=== PATIENT | male | born 1960 | race Caucasian/White ===

== ENCOUNTER 2017-07-02 09:21 | Inpatient (IN) ==
[2017-07-02] MEDS ORDERED: Ondansetron 4 MG/2 ML VIAL IVP PRN (11:13)
[2017-07-02] MEDS ORDERED: *HR* HYDROcodone/Acet 5/325 mg TABLET PO PRN (11:13)
[2017-07-02] MEDS ORDERED: Polyethylene Glycol 3350 255 GM POWDER PO ONE (11:13)
[2017-07-02] MEDS ORDERED: *HR* Promethazine 25 MG/ML VIAL IVP PRN (11:13)
[2017-07-02] MEDS ORDERED: *HR* Morphine 2 MG/ML SYRINGE IVP PRN ×3 (11:13)
[2017-07-02] MEDS ORDERED: *HR* Metoprolol 5 MG/5 ML VIAL IVP PRN (11:13)
[2017-07-02] MEDS ORDERED: 0.9 % Sodium Chloride 1,000 ML IVC SCH ×2 (11:15→14:15)
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
[2017-07-02] MEDS: Pantoprazole 40 MG VIAL IVP SCH (12:07)
[2017-07-02 12:16] LABS: Basophils # 0.1 K/mcL (0.0-0.2); Basophils % 0.9 %; Eosinophils # 0.2 K/mcL (0.0-0.6); Eosinophils % 3.2 %; Hematocrit 33.2 % (37.5-50.1); Hemoglobin 11.8 g/dL (12.9-16.9); Immature Granulocytes % 0.3 % (0-4); Immature Platelets 2.6 % (1.1-6.1); Lymphocytes # 2.9 K/mcL (0.6-4.6); Lymphocytes % 38.8 %; Mean Corpuscular HGB Conc 35.5 g/dL (31.6-35.5); Mean Corpuscular Hemoglobin 30.5 pg (28.0-33.3); Mean Corpuscular Volume 85.8 fL (83.0-100.0); Mean Platelet Volume 9.8 fL (9.4-12.4); Monocytes # 0.8 K/mcL (0.0-1.3); Monocytes % 10.3 %; Neutrophils # 3.5 K/mcL (1.6-8.9); Platelet Count 626 K/mcL (140-400); Red Blood Count 3.87 M/mcL (4.19-5.50); Red Cell Distribution Width 13.8 % (11.5-14.5); Segmented Neutrophils % 46.5 %
[2017-07-02 12:20] LABS: INR 1.2; Prothrombin Time 12.5 Seconds (9.4-12.1)
[2017-07-02 12:32] LABS: Alanine Aminotransferase 13 Units/L (7-52); Albumin 3.7 g/dL (3.5-5.7); Albumin/Globulin Ratio 1.4 (1.1-2.2); Alkaline Phosphatase 29 Units/L (34-104); Aspartate Amino Transferase 12 Units/L (13-39); BUN/Creatinine Ratio 23 (6-26); Bilirubin,Direct 0.1 mg/dL (0.0-0.2); Bilirubin,Indirect 0.3 mg/dL (0.0-1.2); Bilirubin,Total 0.4 mg/dL (0.3-1.0); Blood Urea Nitrogen 23 mg/dL (6-20); Calcium 9.2 mg/dL (8.6-10.3); Carbon Dioxide 22 mEq/L (23-29); Chloride 108 mEq/L (98-107); Globulin 2.7 g/dL (2.4-3.5); Glucose 143 mg/dL (70-105); Osmolality,Calculated 290 (280-300); Potassium 4.3 mEq/L (3.5-5.1); Sodium 137 mEq/L (136-145); Total Protein 6.4 g/dL (6.4-8.9); eGFR For African Americans > 60 (> 60); eGFR For Non-African Americans > 60 (> 60)
[2017-07-02] MEDS: carBAMazepine 200 MG TABLET PO SCH ×2 (16:00→23:23)
[2017-07-02] MEDS: Ipratropium/Albuterol Neb 3 ML IH SCH ×3 (16:57→23:12)
[2017-07-02] MEDS: *HR* Heparin 5,000 UNIT/ML VIAL SQ SCH (18:00)
[2017-07-02] MEDS ORDERED: Fenofibrate 54 MG TABLET PO SCH (21:00)
[2017-07-02] MEDS: Ringers Solution, Lactated 1,000 ML IVC SCH (23:23)
[2017-07-03] MEDS: Ipratropium/Albuterol Neb 3 ML IH SCH ×5 (03:34→23:57)
[2017-07-03 05:00] LABS: Basophils # 0.1 K/mcL (0.0-0.2); Basophils % 1.2 %; Eosinophils # 0.4 K/mcL (0.0-0.6); Eosinophils % 6.7 %; Hemoglobin 11.1 g/dL (12.9-16.9); Immature Granulocytes % 0.7 % (0-4); Lymphocytes # 2.2 K/mcL (0.6-4.6); Lymphocytes % 38.2 %; Mean Corpuscular HGB Conc 34.7 g/dL (31.6-35.5); Mean Corpuscular Hemoglobin 30.4 pg (28.0-33.3); Mean Corpuscular Volume 87.7 fL (83.0-100.0); Mean Platelet Volume 9.5 fL (9.4-12.4); Monocytes # 0.8 K/mcL (0.0-1.3); Monocytes % 14.5 %; Neutrophils # 2.3 K/mcL (1.6-8.9); Platelet Count 567 K/mcL (140-400); Red Blood Count 3.65 M/mcL (4.19-5.50); Red Cell Distribution Width 13.9 % (11.5-14.5); Segmented Neutrophils % 38.7 %
[2017-07-03 05:04] LABS: INR 1.1; Prothrombin Time 12.1 Seconds (9.4-12.1)
[2017-07-03 05:14] LABS: BUN/Creatinine Ratio 18 (6-26); Blood Urea Nitrogen 15 mg/dL (6-20); Calcium 8.8 mg/dL (8.6-10.3); Carbon Dioxide 24 mEq/L (23-29); Chloride 109 mEq/L (98-107); Glucose 129 mg/dL (70-105); Magnesium 1.9 mg/dL (1.6-2.6); Osmolality,Calculated 289 (280-300); Phosphorous 3.5 mg/dL (2.7-4.5); Sodium 138 mEq/L (136-145); eGFR For African Americans > 60 (> 60); eGFR For Non-African Americans > 60 (> 60)
[2017-07-03] MEDS: *HR* Heparin 5,000 UNIT/ML VIAL SQ SCH (05:32)
[2017-07-03] MEDS ORDERED: cefOXitin 2,000 MG in D5% in Water (Mini-Bag+) 100 ML IVPB ONE (07:32)
[2017-07-03] MEDS ORDERED: cefOXitin 2,000 MG in Water for inj. (sterile) 10 ML IVP ONE (07:37)
[2017-07-03] MEDS ORDERED: ceFAZolin 1,000 MG, Sodium Chloride IRRigation 1,000 ML IR ONE (08:00)
[2017-07-03] MEDS: carBAMazepine 200 MG TABLET PO SCH ×2 (08:26→16:19)
[2017-07-03] MEDS: Pantoprazole 40 MG VIAL IVP SCH (08:37)
[2017-07-03] MEDS: Ringers Solution, Lactated 1,000 ML IVC SCH (08:38)
--- NOTE | 2017-07-03 08:52 | Electrocardiograph Report ---
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
[2017-07-03] MEDS ORDERED: (Roflumilast [Daliresp] 500 MCG) PO SCH (09:00)
--- NOTE | 2017-07-03 12:56 | Anesthesia Evaluation PreOp ---
<Abdulaziz Goodman - Last Filed: 07/03/17 12:53> Date of Encounter: 07/03/17 - Past History Planned Operation: open cholecystectomy Cardiac History: HTN, Hyperlipidemia Pulmonary History: Former smoker (quit 1985), COPD, ERMELINDA Dx, Other (chronic resp failure on home )2) GARMENT LOOPER History: Other (post tramatic brain injury) Other Medical History: Diabetes Type II, Thyroid (hypo), Other (chronic pancreatitis) Anesthesia History: No Prior Anesthetic Complications, Past Anesthesia ( splenectomy, partial thyroidectomy, multiple orthopedic sx) Alcohol Use: occasionally Drug use: none Medications and Allergies Cyclobenzaprine [Flexeril] 10 mg PO TID 01/28/15 [History] Fenofibrate 160 mg PO HS 01/28/15 [History] Levothyroxine Sodium [Synthroid] 75 mcg PO QAM 01/28/15 [History] Lisinopril [Zestril] 2.5 mg PO QAM 01/28/15 [History] Naproxen [Naprosyn] 500 mg PO BID 01/28/15 [History] Terazosin [Hytrin] 4 mg PO HS 01/28/15 [History] Testosterone Cypionate [Depo-Testosterone] 0.25 ml IM TH 01/28/15 [History] TraMADol [Ultram] 50 mg PO Q6HR PRN 01/28/15 [History] Albuterol Sulfate [Albuterol Inhaler] 2 puff IH Q4HR PRN 01/17/16 [History] Cholecalciferol (D-3) [Vitamin D] 2,000 unit PO DAILY 01/17/16 [History] Fish Oil/Dha/Epa [Fish Oil 1,200 mg Fish Oil] 1 each PO DAILY 01/17/16 [History] Fluticasone Propionate Nasal [Flonase] 1 spr NS DAILY 01/17/16 [History] Montelukast [Singulair] 10 mg PO HS 01/17/16 [History] Multivitamin [Multi-Day Vitamins] 1 each PO DAILY 01/17/16 [History] Omeprazole [PriLOSEC] 20 mg PO DAILY 01/17/16 [History] Tadalafil [Cialis] 20 mg PO AD PRN 01/17/16 [History] Umeclidinium Brm/Vilanterol Tr [Anoro Ellipta 62.5-25 Mcg INH] 1 puff IH DAILY 01/17/16 [History] Vitamin B Complex [B Complex] 1 each PO DAILY 01/17/16 [History] Diclofenac Sodium [Voltaren] 1 appl TP QID 07/02/17 [History] Roflumilast [Daliresp] 500 mcg PO DAILY 07/02/17 [History] carBAMazepine [Tegretol] 200 mg PO Q8HR 07/02/17 [History] 3 Allergy/AdvReac Type Severity Reaction Status Date / Time phenytoin [From Dilantin] Allergy Hives Verified 07/02/17 11:21 Sulfa (Sulfonamide Allergy Hives Verified 07/02/17 11:21 Antibiotics) - Meds/Allergy Pre-op Review Medications Reviewed: Yes Allergies Reviewed: Yes Beta Blockers on Current Med List: No Anesthesia Results - Labs 07/03/17 04:43 07/03/17 04:43 - Imaging EKG: report reviewed (SINUS RHYTHM) Anesthesia Exam Selected Entries 07/03/17 11:00 Temperature 97.6 F Pulse Rate 108 Respiratory Rate 16 Blood Pressure 148/85 O2 Sat by Pulse Oximetry 94 Oxygen Flow Rate (LPM) 2 Weight: 92kg - GARMENT LOOPER LOC: Oriented GARMENT LOOPER Motor: Normal RUE, Normal LUE, Normal RLE, Normal LLE, Normal Face GARMENT LOOPER Sensory: Normal: RUE, LUE, RLE, LLE, Face - Cardiac Rhythm: Regular Murmur: None - Pulmonary Breath Sounds: bilateral Clear Respiratory Effort: Symmetrical <Will Leahy - Last Filed: 07/03/17 14:10> Date of Encounter: 07/03/17 Time of Encounter: 14:10 Anesthesia Results - Labs 07/03/17 04:43 07/03/17 04:43 Anesthesia Exam Height: 6'0 Weight: 92kg 202 lbs NPO (# of Hours): MN Pain Scale: 0 - HEENT Pupil (Motor): Pupils equal, EOMI Mallampati: II Teeth: Normal Oral Opening: Greater than 3 - GARMENT LOOPER LOC: Oriented GARMENT LOOPER Motor: Normal RUE, Normal LUE, Normal RLE, Normal LLE, Normal Face GARMENT LOOPER Sensory: Normal: RUE, LUE, RLE, LLE, Face - Cardiac Rhythm: Regular Murmur: None JVD: No Carotid Bruit: No - Pulmonary Breath Sounds: bilateral Clear Respiratory Effort: Symmetrical Anesthesia Assess/Plan ASA Score: 3 Modified Daniele Scale for Level of Consciousness: Cooperative, oriented, and tranquil Anesthetic Plan: General Monitoring Plan: Standard Monitors Recovery Plan: PACU (Discussed GA, agrees to proceed)
[2017-07-03] MEDS ORDERED: Albuterol 2.5 MG/3 ML NEBULIZER IH ONE (14:12)
[2017-07-03] MEDS ORDERED: Albuterol 2.5 MG/3 ML NEBULIZER ONE (14:15)
[2017-07-03] MEDS ORDERED: cefOXitin 1,000 MG, Sodium Chloride IRRigation 1,000 ML IR ONE (16:00)
[2017-07-03] MEDS ORDERED: cefOXitin 2,000 MG in Water for inj. (sterile) 20 ML 10 ML IVP ONE (16:14)
[2017-07-03] MEDS ORDERED: *HR* Morphine 2 MG/ML SYRINGE IVP PRN (16:17)
[2017-07-03] MEDS ORDERED: *HR* Labetalol 20 MG/4 ML SYRINGE IVP PRN (16:17)
[2017-07-03] MEDS ORDERED: Ondansetron 4 MG/2 ML VIAL IVP ONE (16:17)
[2017-07-03] MEDS ORDERED: *HR* Promethazine 25 MG/ML VIAL IVP PRN (16:17)
[2017-07-03] MEDS ORDERED: CefOXitin 1,000 MG VIAL ONE (17:27)
--- NOTE | 2017-07-03 18:23 | Operative Note ---
Date of procedure: 07/03/17 Pre-op diagnosis: #1 acute cholecystitis #2 gallbladder to colon fistula Post-op diagnosis: same Procedure: #1 open cholecystectomy and cholangiogram +30% for gallbladder necrosis and severe inflammation. #2 right hemicolectomy Anesthesia: HARDEEP Surgeon: Haris Brunner Was there an sound assistant present: No Estimated blood loss (cc): 400 Specimen: #1 gallbladder (in fragments) #2 right colon demonstrating fistula Condition: stable Disposition: PACU Procedure in Detail: After informed consent the patient was taken to the major operative suite he is placed in the supine position and given adequate general endotracheal anesthesia. Nasogastric tube was placed. Garcia catheter tube was placed. The abdomen was prepped and draped in sterile fashion utilizing ChloraPrep standard draping techniques. Timeout was taken. The patient was identified. I entered the midline previous laparotomy incision. There were no anterior abdominal wall adhesions. The gallbladder was rock hard and completely encased by the transverse colon by acute inflammatory adhesions. A Bookwalter retractor was placed made a careful dissection around the inflammatory mass and encountered a subhepatic abscess. Full of Stool and bile. As it turns out, the anterior wall the gallbladder was completely necrotic and affixed to the transverse colon the infundibulum of the gallbladder was completely necrotic and affixed to the duodenum. A significant portion of the gallbladder was intrahepatic and also completely necrotic. I made a careful dissection of the neck of the gallbladder. I was able to identify the cystic duct. I obtained a cholangiogram. Cholangiogram demonstrated good flow into the duodenum and confirmed my placement and location as the cystic duct. The cystic duct was divided between surgical clips. The cystic artery was identified. This is controlled with surgical clips proximally and distally. The artery was divided. When I divided the artery proximal clips came off and I had to control the artery with a 4-0 Prolene stitch. The gallbladder was totally necrotic. I decided to remove the gallbladder completely. This was tremendously difficult in that 60-70% of the gallbladder was intrahepatic. I made a very careful dissection with electrocautery and blunt dissection followed by direct pressure on the hepatic fossa bed. The gallbladder was removed in multiple necrotic fragments. I placed a compression pack on the gallbladder fossa using the Bookwalter retractor. Total blood loss to this point was about 300 mL. I then turned my attention to the transverse colon. Using a right angle I explored the wall of the transverse colon and found the colon fistula. I divided the transverse colon just distal to this area of necrosis were the transverse colon was in good condition. DIDIER was used. Then mobilize the right colon. The distal ileum was adhesed into the pelvis. I lysed all of the adhesions to get adequate mobility on the ileum. I then transected the ileum about 10 cm proximal to the ileocecal valve. Right colon was then removed by dividing the mesentery with clamps and hemostatic ligatures. Once this was done I set up a dirty field and performed primary ileocolic anastomosis using DIDIER along the antimesenteric border. The resulting enterotomy was closed with a TA 60. I circumferentially reinforced the staple anastomosis with interrupted 3-0 silk seromuscular stitches. The remaining mesenteric opening was closed with multiple interrupted [id number] 2-0 silk stitches. This gave an excellent technical result. I irrigated with copious amounts of antibiotic containing solution. The liver was examined carefully. There was no bleeding from the hepatic fossa. Total blood loss was 400 mL. I placed #10 Russell-Banda drain in the right upper quadrant into the area of hepatic fossa and subhepatic abscess. I irrigated with copious amounts of antibiotic containing solution. The midline was closed with looped 0 PDS. The skin was closed with interrupted Vicryl and skin clips. He tolerated the procedure well.
[2017-07-03] MEDS: *HR* HYDROmorphone (PF) 1 MG/ML SYRINGE IVP PRN ×4 (18:32→22:17)
--- NOTE | 2017-07-03 19:06 | Anesthesia Evaluation Post Op ---
Date of Encounter: 07/03/17 Time of Encounter: 19:05 - Vital Signs Vital Signs: Vital Signs/O2 Sat, Most Current Temp Pulse Resp BP Pulse Ox 97.9 F 95 20 150/71 92 07/03/17 18:51 07/03/17 18:51 07/03/17 18:51 07/03/17 18:51 07/03/17 18:51 - Lungs Lungs: Clear Ascult./Percussion - Airway Airway: Non-obstructed - Cardiovascular Regular Rate - Mental Status Mental Status: Asleep with brisk response to light stimulation - Pain Pain Scale: 4 Pain Scale used: Numeric (1 - 10) - Nausea Vomiting Nausea Vomiting: Not Present - Hydration Hydration: NPO, Garcia catheter - Discharge PostOp Status: Transfer Patient to floor
[2017-07-03] MEDS ORDERED: Ondansetron 4 MG/2 ML VIAL IVP PRN (19:29)
[2017-07-03] MEDS ORDERED: *HR* Metoprolol 5 MG/5 ML VIAL IVP PRN (19:29)
[2017-07-03] MEDS ORDERED: *HR* FentaNYL (PF) 100 MCG/2 ML VIAL ONE (19:48)
[2017-07-03] MEDS ORDERED: *HR* Propofol 200 MG/20 ML VIAL IVP ONE (19:48)
[2017-07-03] MEDS ORDERED: *HR* Rocuronium Bromide 50 MG/5 ML VIAL ONE ×2 (19:48)
[2017-07-03] MEDS ORDERED: EPHEDrine 50 MG/ML VIAL ONE (19:48)
[2017-07-03] MEDS ORDERED: Ondansetron 4 MG/2 ML VIAL ONE (19:48)
[2017-07-03] MEDS ORDERED: Lidocaine -MPF 2% 2 ML VIAL ONE (19:48)
[2017-07-03] MEDS ORDERED: Dexamethasone 4 MG/ML VIAL ONE (19:48)
[2017-07-03] MEDS ORDERED: Neostigmine Methylsulfate 3 MG/3 ML SYRINGE ONE ×2 (19:48)
[2017-07-03] MEDS ORDERED: *HR* Succinylcholine 200 MG/10 ML VIAL IVP ONE (19:48)
[2017-07-03] MEDS ORDERED: *HR* HYDROmorphone 2 MG/ML SYRINGE ONE (19:48)
[2017-07-03] MEDS ORDERED: CefOXitin 2,000 MG VIAL ONE (19:48)
[2017-07-04] MEDS ORDERED: cefOXitin 2,000 MG in D5% in Water (Mini-Bag+) 100 ML IVPB SCH
[2017-07-04] MEDS: cefOXitin 1,000 MG in Water for inj. (sterile) 20 ML 10 ML IVP SCH ×2 (00:38→08:39)
[2017-07-04] MEDS: *HR* HYDROmorphone (PF) 1 MG/ML SYRINGE IVP PRN ×7 (00:38→10:23)
[2017-07-04] MEDS: Ringers Solution, Lactated 1,000 ML IVC SCH ×3 (03:50→18:56)
[2017-07-04] MEDS: Ipratropium/Albuterol Neb 3 ML IH SCH ×5 (04:03→20:33)
[2017-07-04 05:16] LABS: Basophils % 0.1 %; Mean Platelet Volume 9.5 fL (9.4-12.4)
[2017-07-04 05:18] LABS: Hematocrit 34.6 % (37.5-50.1); Immature Granulocytes % 0.6 % (0-4); Lymphocytes # 1.3 K/mcL (0.6-4.6); Lymphocytes % 4.8 %; Mean Corpuscular HGB Conc 34.7 g/dL (31.6-35.5); Mean Corpuscular Hemoglobin 30.5 pg (28.0-33.3); Mean Corpuscular Volume 87.8 fL (83.0-100.0); Monocytes # 1.3 K/mcL (0.0-1.3); Monocytes % 4.8 %; Neutrophils # 23.5 K/mcL (1.6-8.9); Platelet Count 548 K/mcL (140-400); Red Blood Count 3.94 M/mcL (4.19-5.50); Red Cell Distribution Width 13.7 % (11.5-14.5); Segmented Neutrophils % 89.7 %
[2017-07-04] MEDS: Pantoprazole 40 MG VIAL IVP SCH (05:18)
[2017-07-04] MEDS: *HR* Heparin 5,000 UNIT/ML VIAL SQ SCH ×2 (05:25→18:56)
[2017-07-04 05:30] LABS: INR 1.2; Prothrombin Time 13.4 Seconds (9.4-12.1)
[2017-07-04 05:41] LABS: Alanine Aminotransferase 63 Units/L (7-52); Albumin 3.5 g/dL (3.5-5.7); Albumin/Globulin Ratio 1.3 (1.1-2.2); Alkaline Phosphatase 28 Units/L (34-104); Aspartate Amino Transferase 87 Units/L (13-39); BUN/Creatinine Ratio 13 (6-26); Bilirubin,Direct 0.2 mg/dL (0.0-0.2); Bilirubin,Indirect 0.5 mg/dL (0.0-1.2); Bilirubin,Total 0.7 mg/dL (0.3-1.0); Blood Urea Nitrogen 10 mg/dL (6-20); Calcium 8.9 mg/dL (8.6-10.3); Carbon Dioxide 25 mEq/L (23-29); Chloride 105 mEq/L (98-107); Globulin 2.8 g/dL (2.4-3.5); Glucose 207 mg/dL (70-105); Magnesium 1.7 mg/dL (1.6-2.6); Osmolality,Calculated 289 (280-300); Phosphorous 4.3 mg/dL (2.7-4.5); Potassium 4.2 mEq/L (3.5-5.1); Sodium 137 mEq/L (136-145); Total Protein 6.3 g/dL (6.4-8.9); eGFR For African Americans > 60 (> 60); eGFR For Non-African Americans > 60 (> 60)
[2017-07-04 05:50] LABS: Platelet Estimate Increased (Normal)
[2017-07-04] MEDS ORDERED: *HR* HYDROmorphone 20 MG/20 ML PCA IVC PRN (10:49)
[2017-07-04] MEDS ORDERED: Naloxone 0.4 MG/ML INJ IVP PRN (10:49)
[2017-07-04] MEDS ORDERED: 0.9 % Sodium Chloride 1,000 ML IVC ONE (11:59)
[2017-07-04] MEDS ORDERED: Chloraseptic Spray 177 ML BOTTLE MM SCH (12:00)
[2017-07-04] MEDS: *HR* HYDROmorphone 20 MG/20 ML PCA IVC PRN (12:01)
--- NOTE | 2017-07-04 12:04 | General Surgery Progress Note ---
<Ryland Graves - Last Filed: 07/04/17 12:02> Date of Encounter: 07/04/17 Time of Encounter: 12:02 - Assessment and Plan (1) Acute cholecystitis due to biliary calculus Current Visit: Yes Status: Acute POD 1 - open cholecystectomy and r sayda colectomy w/ intraoperative cholangiogram 2/2 acute cholecystitis + fistula by Dr. Haris Brunner. Patient is in signficant amount of abdominal pain. hemodynamically stable, WBC 26.2 today. 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 PRN IV antihypertensives Qualifiers: Hypertension type: essential hypertension Qualified Code(s): I10 - Essential (primary) hypertension (4) Hypothyroid Current Visit: Yes Status: Chronic home synthroid PO, switched to IV synthroid while NPO. Qualifiers: Hypothyroidism type: unspecified Qualified Code(s): E03.9 - Hypothyroidism , unspecified (5) COPD (chronic obstructive pulmonary disease) Current Visit: Yes Status: Acute Scheduled duonebs Consult RT O2 per nasal cannula Qualifiers: COPD type: unspecified COPD Qualified Code(s): J44.9 - Chronic obstructive pulmonary disease, unspecified (6) Chronic respiratory failure with hypoxia, on home O2 therapy Current Visit: Yes Status: Acute He denies symptoms of angina, worsening sob, or cardiac history. See a/p above Subjective Patient reports: still having pain, no flatus, no bowel movement, afebrile Narrative: Patient is in significant amount of abdominal pain from surgery. 03/31 in severity Objective Vital Signs - Last 8 Hours Temp Pulse Resp BP Pulse Ox 07/04/17 07:49 98.1 F 105 16 119/77 94 07/04/17 04:03 97.9 F 106 18 138/93 97 Intake and Output 07/03/17 07/04/17 07/04/17 23:59 07:59 15:59 Intake Total 60 / 60 1070 / 1070 1000 / 1000 Output Total 460 / 460 1040 / 1040 650 / 650 Balance -400 / -400 30 / 30 350 / 350 Intake: IV Fluids 1010 / 1010 1000 / 1000 Lactated Ringers 1,000 ML @ 125 1000 / 1000 1000 / 1000 mls/hr IVC .Q8H [facility] Rx#: [id number] Mefoxin 1,000 MG In Water for inj. (sterile) 10 ML @ 150 mls/ hr IVP Q8HR [facility] Rx#:[id number] Oral 60 / 60 60 / 60 Output: Urine 0 / 0 0 / 0 Estimated Blood Loss 400 / 400 Catheter 0 / 0 950 / 950 650 / 650 Urethral (Garcia) 0 / 0 Wound Drainage 60 / 60 90 / 90 Right Upper Abdomen 40 / 40 90 / 90 Other: Weight 92.022 kg Blood Glucose* 230 187 Patient Weight 07/04/17 23:59 Weight 92.022 kg - General physical appearance well developed, well nourished, severe distress, severe pain - Eyes normal ocular movement - ENT normal mucosa, no hearing loss - Respiratory normal expansion, normal respiratory effort, clear to percussion, clear to auscultation - Cardiovascular Cardiovascular exam: Present: RRR - Abdomen Abdomen: Present: bowel sounds present, tender, guarding. Absent: rebound, rigid Abdominal Tenderness: diffusely - Incision Incision: Present: clean and dry, intact - Neurologic normal sensation - Psychiatric oriented to time, oriented to person, oriented to place, speech is normal, memory intact - Labs 07/04/17 05:05 07/04/17 05:05 Diabetes panel 07/04/17 Range/Units 05:05 Sodium 137 (136-145) mEq/L Potassium 4.2 (3.5-5.1) mEq/L Chloride 105 (98-107) mEq/L Carbon Dioxide 25 (23-29) mEq/L BUN 10 (6-20) mg/dL Creatinine 0.75 (0.70-1.30) mg/dL Glucose 207 H (70-105) mg/dL Calcium 8.9 (8.6-10.3) mg/dL AST 87 H (13-39) Units/L ALT 63 H (7-52) Units/L Alkaline Phosphatase 28 L (34-104) Units/L Albumin 3.5 (3.5-5.7) g/dL Calcium panel 07/04/17 Range/Units 05:05 Calcium 8.9 (8.6-10.3) mg/dL Phosphorus 4.3 (2.7-4.5) mg/dL Albumin 3.5 (3.5-5.7) g/dL Pituitary panel 07/04/17 Range/Units 05:05 Sodium 137 (136-145) mEq/L Potassium 4.2 (3.5-5.1) mEq/L Chloride 105 (98-107) mEq/L Carbon Dioxide 25 (23-29) mEq/L BUN 10 (6-20) mg/dL Creatinine 0.75 (0.70-1.30) mg/dL Glucose 207 H (70-105) mg/dL Calcium 8.9 (8.6-10.3) mg/dL Adrenal panel 07/04/17 Range/Units 05:05 Sodium 137 (136-145) mEq/L Potassium 4.2 (3.5-5.1) mEq/L Chloride 105 (98-107) mEq/L Carbon Dioxide 25 (23-29) mEq/L BUN 10 (6-20) mg/dL Creatinine 0.75 (0.70-1.30) mg/dL Glucose 207 H (70-105) mg/dL Calcium 8.9 (8.6-10.3) mg/dL Total Bilirubin 0.7 (0.3-1.0) mg/dL AST 87 H (13-39) Units/L ALT 63 H (7-52) Units/L Alkaline Phosphatase 28 L (34-104) Units/L Albumin 3.5 (3.5-5.7) g/dL - VTE Documentation of Mechanical Device: Intermittent pneumatic compression device Consult Discharge Plan - Plan Referrals: Artemio Briggs DO [Primary Care Provider] - <Ubaldo Palacios - Last Filed: 07/04/17 13:01> Date of Encounter: 07/04/17 Objective Vital Signs - Last 8 Hours Temp Pulse Resp BP Pulse Ox 07/04/17 12:26 99.6 F 107 16 123/81 93 07/04/17 07:49 98.1 F 105 16 119/77 94 Intake and Output 07/03/17 07/04/17 07/04/17 23:59 07:59 15:59 Intake Total 60 / 60 1070 / 1070 1000 / 1000 Output Total 460 / 460 1040 / 1040 800 / 800 Balance -400 / -400 30 / 30 200 / 200 Intake: IV Fluids 1010 / 1010 1000 / 1000 Lactated Ringers 1,000 ML @ 125 1000 / 1000 1000 / 1000 mls/hr IVC .Q8H [facility] Rx#: [id number] Mefoxin 1,000 MG In Water for inj. (sterile) 10 ML @ 150 mls/ hr IVP Q8HR [facility] Rx#:[id number] Oral 60 / 60 60 / 60 Output: Urine 0 / 0 0 / 0 Estimated Blood Loss 400 / 400 Catheter 0 / 0 950 / 950 800 / 800 Urethral (Garcia) 0 / 0 Wound Drainage 60 / 60 90 / 90 Right Upper Abdomen 40 / 40 90 / 90 Other: Weight 92.022 kg Blood Glucose* 230 187 Patient Weight 07/04/17 23:59 Weight 92.022 kg - Labs 07/04/17 05:05 07/04/17 05:05 Diabetes panel 07/04/17 Range/Units 05:05 Sodium 137 (136-145) mEq/L Potassium 4.2 (3.5-5.1) mEq/L Chloride 105 (98-107) mEq/L Carbon Dioxide 25 (23-29) mEq/L BUN 10 (6-20) mg/dL Creatinine 0.75 (0.70-1.30) mg/dL Glucose 207 H (70-105) mg/dL Calcium 8.9 (8.6-10.3) mg/dL AST 87 H (13-39) Units/L ALT 63 H (7-52) Units/L Alkaline Phosphatase 28 L (34-104) Units/L Albumin 3.5 (3.5-5.7) g/dL Calcium panel 07/04/17 Range/Units 05:05 Calcium 8.9 (8.6-10.3) mg/dL Phosphorus 4.3 (2.7-4.5) mg/dL Albumin 3.5 (3.5-5.7) g/dL Pituitary panel 07/04/17 Range/Units 05:05 Sodium 137 (136-145) mEq/L Potassium 4.2 (3.5-5.1) mEq/L Chloride 105 (98-107) mEq/L Carbon Dioxide 25 (23-29) mEq/L BUN 10 (6-20) mg/dL Creatinine 0.75 (0.70-1.30) mg/dL Glucose 207 H (70-105) mg/dL Calcium 8.9 (8.6-10.3) mg/dL Adrenal panel 07/04/17 Range/Units 05:05 Sodium 137 (136-145) mEq/L Potassium 4.2 (3.5-5.1) mEq/L Chloride 105 (98-107) mEq/L Carbon Dioxide 25 (23-29) mEq/L BUN 10 (6-20) mg/dL Creatinine 0.75 (0.70-1.30) mg/dL Glucose 207 H (70-105) mg/dL Calcium 8.9 (8.6-10.3) mg/dL Total Bilirubin 0.7 (0.3-1.0) mg/dL AST 87 H (13-39) Units/L ALT 63 H (7-52) Units/L Alkaline Phosphatase 28 L (34-104) Units/L Albumin 3.5 (3.5-5.7) g/dL - Attending Attestation I have personally seen and examined the patient. I have reviewed pertinent labs , imaging, progress notes, including this one. I agree with the above assessment and plan and wish to include the following... 57M POD#1 s/p ex lap, cholecystectomy, R hemicolectomy; pain uncontrolled; afebrile; VSS; significantly tender to palpation; sanguinous, bilious drainage, more sanguinous than bilious; leukocytosis; pain: dilaudid network lead with basal; will reassess pulm: pulm toileting; albuterol PRN GI: cont ng tube; keep NPO; start protonix ID: zosyn; recheck WBC in AM heme: DVT prophylaxis; FEN: replete lytes; change fluids to MIVF MSK; activity as tolerated dispo: cont cares on floor
[2017-07-04] MEDS: Chloraseptic Spray 177 ML BOTTLE MM SCH ×2 (12:17→18:56)
[2017-07-04] MEDS: Piperacillin/Tazobactam 3.375 GM/200 ML BAG IVPB SCH (12:17)
[2017-07-05] MEDS: Ipratropium/Albuterol Neb 3 ML IH SCH ×6 (00:02→19:49)
[2017-07-05] MEDS: Ringers Solution, Lactated 1,000 ML IVC SCH ×4 (02:48→20:27)
[2017-07-05] MEDS: Piperacillin/Tazobactam 3.375 GM/200 ML BAG IVPB SCH ×5 (02:49→20:27)
[2017-07-05] MEDS: *HR* HYDROmorphone 20 MG/20 ML PCA IVC PRN (04:41)
[2017-07-05 05:22] LABS: Basophils # 0.1 K/mcL (0.0-0.2); Basophils % 0.2 %; Eosinophils # 0.2 K/mcL (0.0-0.6); Eosinophils % 0.9 %; Hematocrit 32.5 % (37.5-50.1); Hemoglobin 11.1 g/dL (12.9-16.9); Immature Granulocytes % 0.4 % (0-4); Lymphocytes # 2.2 K/mcL (0.6-4.6); Lymphocytes % 10.2 %; Mean Corpuscular HGB Conc 34.2 g/dL (31.6-35.5); Mean Corpuscular Hemoglobin 30.1 pg (28.0-33.3); Mean Corpuscular Volume 88.1 fL (83.0-100.0); Monocytes % 9.4 %; Neutrophils # 16.5 K/mcL (1.6-8.9); Platelet Count 439 K/mcL (140-400); Red Blood Count 3.69 M/mcL (4.19-5.50); Red Cell Distribution Width 13.7 % (11.5-14.5); Segmented Neutrophils % 78.9 %
[2017-07-05] MEDS: Levothyroxine Sodium 100 MCG VIAL IVP SCH (05:40)
[2017-07-05] MEDS: Pantoprazole 40 MG VIAL IVP SCH (05:41)
[2017-07-05] MEDS: *HR* Heparin 5,000 UNIT/ML VIAL SQ SCH ×2 (05:41→18:16)
[2017-07-05 05:43] LABS: Alanine Aminotransferase 47 Units/L (7-52); Albumin 3.4 g/dL (3.5-5.7); Albumin/Globulin Ratio 1.2 (1.1-2.2); Alkaline Phosphatase 31 Units/L (34-104); Aspartate Amino Transferase 40 Units/L (13-39); BUN/Creatinine Ratio 17 (6-26); Bilirubin,Total 0.8 mg/dL (0.3-1.0); Blood Urea Nitrogen 12 mg/dL (6-20); Carbon Dioxide 24 mEq/L (23-29); Chloride 104 mEq/L (98-107); Globulin 2.9 g/dL (2.4-3.5); Glucose 157 mg/dL (70-105); Osmolality,Calculated 283 (280-300); Sodium 135 mEq/L (136-145); Total Protein 6.3 g/dL (6.4-8.9); eGFR For African Americans > 60 (> 60); eGFR For Non-African Americans > 60 (> 60)
[2017-07-05] MEDS: Chloraseptic Spray 177 ML BOTTLE MM SCH ×4 (08:59→20:28)
--- NOTE | 2017-07-05 15:05 | General Surgery Progress Note ---
<Olivia Brennan - Last Filed: 07/05/17 16:14> Date of Encounter: 07/05/17 Time of Encounter: 11:00 - Assessment and Plan (1) Acute cholecystitis due to biliary calculus Current Visit: Yes Status: Acute POD #2 - open cholecystectomy and r sayda colectomy w/ intraoperative cholangiogram 2/2 acute cholecystitis + fistula by Dr. Haris Brunner. 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 - aggressive Pulm Toilet - Encourage IS q1hr while awake - serial abd exams - NPO - AM labs (2) Entero-colonic fistula Current Visit: Yes Status: Acute As above (3) HTN (hypertension) Current Visit: Yes Status: Chronic PRN IV Lopressor Qualifiers: Hypertension type: essential hypertension Qualified Code(s): I10 - Essential (primary) hypertension (4) Hypothyroid Current Visit: Yes Status: Chronic IV Synthroid while NPO Qualifiers: Hypothyroidism type: unspecified Qualified Code(s): E03.9 - Hypothyroidism , unspecified (5) COPD (chronic obstructive pulmonary disease) Current Visit: Yes Status: Acute RT consulted Scheduled duonebs, albuterol PRN\ Supplemental O2 via NC Qualifiers: COPD type: unspecified COPD Qualified Code(s): J44.9 - Chronic obstructive pulmonary disease, unspecified (6) DVT prophylaxis Current Visit: Yes Status: Acute -SCDs -Ambulate hallways with assistance TID Subjective Patient reports: no new complaints, still having pain, no flatus, afebrile Narrative: Pain improved from yesterday, now 8/10 Objective Vital Signs - Last 8 Hours Temp Pulse Resp BP Pulse Ox 07/05/17 10:26 98.6 F 113 14 148/91 94 Intake and Output 07/04/17 07/05/17 07/05/17 23:59 07:59 15:59 Intake Total 1260 / 1260 1520 / 1520 1000 / 1000 Output Total 1450 / 1450 1270 / 1270 540 / 540 Balance -190 / -190 250 / 250 460 / 460 Intake: IV Fluids 1200 / 1200 1200 / 1200 1000 / 1000 Lactated Ringers 1,000 ML @ 125 1000 / 1000 1000 / 1000 1000 / 1000 mls/hr IVC .Q8H [facility] Rx#: [id number] Zosyn Premix 3.375 GM/200 ML 3. 200 / 200 200 / 200 375 gm In 200 ml @ 50 mls/hr IVPB Q8H [facility] Rx#:[id number] Oral 60 / 60 320 / 320 Output: Catheter 400 / 400 700 / 700 500 / 500 Gastric Drainage 950 / 950 400 / 400 Wound Drainage 100 / 100 170 / 170 40 / 40 Right Upper Abdomen 100 / 100 170 / 170 40 / 40 Other: Meal npo Weight 95.3 kg Blood Glucose* 138 150 166 Patient Weight 07/05/17 23:59 Weight 95.3 kg - General physical appearance well developed, well nourished, no distress - Respiratory normal expansion, normal respiratory effort, clear to auscultation - Cardiovascular Cardiovascular exam: Present: tachycardia, regular rhythm - Abdomen Abdomen: Present: bowel sounds present, tender - Integumentary other (erythema surrounding FARIDEH drain) - Neurologic CN 2-12 grossly intact - Psychiatric oriented to time, oriented to person, oriented to place, speech is normal, memory intact - Labs 07/05/17 05:04 07/05/17 05:04 Diabetes panel 07/05/17 Range/Units 05:04 Sodium 135 L (136-145) mEq/L Potassium 4.0 (3.5-5.1) mEq/L Chloride 104 (98-107) mEq/L Carbon Dioxide 24 (23-29) mEq/L BUN 12 (6-20) mg/dL Creatinine 0.72 (0.70-1.30) mg/dL Glucose 157 H (70-105) mg/dL Calcium 9.0 (8.6-10.3) mg/dL AST 40 H (13-39) Units/L ALT 47 (7-52) Units/L Alkaline Phosphatase 31 L (34-104) Units/L Albumin 3.4 L (3.5-5.7) g/dL Calcium panel 07/05/17 Range/Units 05:04 Calcium 9.0 (8.6-10.3) mg/dL Albumin 3.4 L (3.5-5.7) g/dL Pituitary panel 07/05/17 Range/Units 05:04 Sodium 135 L (136-145) mEq/L Potassium 4.0 (3.5-5.1) mEq/L Chloride 104 (98-107) mEq/L Carbon Dioxide 24 (23-29) mEq/L BUN 12 (6-20) mg/dL Creatinine 0.72 (0.70-1.30) mg/dL Glucose 157 H (70-105) mg/dL Calcium 9.0 (8.6-10.3) mg/dL Adrenal panel 07/05/17 Range/Units 05:04 Sodium 135 L (136-145) mEq/L Potassium 4.0 (3.5-5.1) mEq/L Chloride 104 (98-107) mEq/L Carbon Dioxide 24 (23-29) mEq/L BUN 12 (6-20) mg/dL Creatinine 0.72 (0.70-1.30) mg/dL Glucose 157 H (70-105) mg/dL Calcium 9.0 (8.6-10.3) mg/dL Total Bilirubin 0.8 (0.3-1.0) mg/dL AST 40 H (13-39) Units/L ALT 47 (7-52) Units/L Alkaline Phosphatase 31 L (34-104) Units/L Albumin 3.4 L (3.5-5.7) g/dL - VTE Documentation of Mechanical Device: Intermittent pneumatic compression device Consult Discharge Plan - Plan Referrals: Artemio Briggs, [Primary Care Provider] - <Ubaldo Palacios - Last Filed: 07/05/17 18:14> Date of Encounter: 07/05/17 Objective Vital Signs - Last 8 Hours Temp Pulse Resp BP Pulse Ox 07/05/17 16:20 98.7 F 114 16 139/81 95 07/05/17 10:26 98.6 F 113 14 148/91 94 Intake and Output 07/05/17 07/05/17 07/05/17 07:59 15:59 23:59 Intake Total 1520 / 1520 1000 / 1000 Output Total 1270 / 1270 540 / 540 200 / 200 Balance 250 / 250 460 / 460 -200 / -200 Intake: IV Fluids 1200 / 1200 1000 / 1000 Lactated Ringers 1,000 ML @ 125 1000 / 1000 1000 / 1000 mls/hr IVC .Q8H [facility] Rx#: [id number] Zosyn Premix 3.375 GM/200 ML 3. 200 / 200 375 gm In 200 ml @ 50 mls/hr IVPB Q8H [facility] Rx#:[id number] Oral 320 / 320 Output: Urine 200 / 200 Catheter 700 / 700 500 / 500 Gastric Drainage 400 / 400 Wound Drainage 170 / 170 40 / 40 Right Upper Abdomen 170 / 170 40 / 40 Other: Meal npo Weight 95.3 kg Blood Glucose* 150 166 Patient Weight 07/05/17 23:59 Weight 95.3 kg - Labs 07/05/17 05:04 07/05/17 05:04 Diabetes panel 07/05/17 Range/Units 05:04 Sodium 135 L (136-145) mEq/L Potassium 4.0 (3.5-5.1) mEq/L Chloride 104 (98-107) mEq/L Carbon Dioxide 24 (23-29) mEq/L BUN 12 (6-20) mg/dL Creatinine 0.72 (0.70-1.30) mg/dL Glucose 157 H (70-105) mg/dL Calcium 9.0 (8.6-10.3) mg/dL AST 40 H (13-39) Units/L ALT 47 (7-52) Units/L Alkaline Phosphatase 31 L (34-104) Units/L Albumin 3.4 L (3.5-5.7) g/dL Calcium panel 07/05/17 Range/Units 05:04 Calcium 9.0 (8.6-10.3) mg/dL Albumin 3.4 L (3.5-5.7) g/dL Pituitary panel 07/05/17 Range/Units 05:04 Sodium 135 L (136-145) mEq/L Potassium 4.0 (3.5-5.1) mEq/L Chloride 104 (98-107) mEq/L Carbon Dioxide 24 (23-29) mEq/L BUN 12 (6-20) mg/dL Creatinine 0.72 (0.70-1.30) mg/dL Glucose 157 H (70-105) mg/dL Calcium 9.0 (8.6-10.3) mg/dL Adrenal panel 07/05/17 Range/Units 05:04 Sodium 135 L (136-145) mEq/L Potassium 4.0 (3.5-5.1) mEq/L Chloride 104 (98-107) mEq/L Carbon Dioxide 24 (23-29) mEq/L BUN 12 (6-20) mg/dL Creatinine 0.72 (0.70-1.30) mg/dL Glucose 157 H (70-105) mg/dL Calcium 9.0 (8.6-10.3) mg/dL Total Bilirubin 0.8 (0.3-1.0) mg/dL AST 40 H (13-39) Units/L ALT 47 (7-52) Units/L Alkaline Phosphatase 31 L (34-104) Units/L Albumin 3.4 L (3.5-5.7) g/dL - Attending Attestation patient seen and examined. All pertinent labs, imaging, and notes, including this one, were reviewed by me. I agree with the above assessment and plan and wish to add the following... POD#2 s/p open cholecystectomy with R hemicolectomy; pain controlled; AF VSS; tender on exam, non peritoneal; incision: c/d/i; using IS; replete lytes; keep NPO, cont NG tube; d/c valiente catheter; encourage ambulation; cont abx and trending wbc
[2017-07-05] MEDS: D5% in Lactated Ringers 1,000 ML IVC SCH ×2 (20:22→20:36)
[2017-07-06] MEDS: Chloraseptic Spray 177 ML BOTTLE MM SCH ×9 (01:49→23:35)
[2017-07-06] MEDS: Ringers Solution, Lactated 1,000 ML IVC SCH ×3 (02:10→12:09)
[2017-07-06] MEDS: Ipratropium/Albuterol Neb 3 ML IH SCH ×7 (03:57→23:39)
[2017-07-06 04:44] LABS: Basophils # 0.1 K/mcL (0.0-0.2); Basophils % 0.5 %; Eosinophils # 0.8 K/mcL (0.0-0.6); Eosinophils % 4.8 %; Hematocrit 30.7 % (37.5-50.1); Hemoglobin 10.8 g/dL (12.9-16.9); Immature Granulocytes % 0.8 % (0-4); Lymphocytes # 2.1 K/mcL (0.6-4.6); Lymphocytes % 13.3 %; Mean Corpuscular HGB Conc 35.2 g/dL (31.6-35.5); Mean Corpuscular Hemoglobin 30.7 pg (28.0-33.3); Mean Corpuscular Volume 87.2 fL (83.0-100.0); Mean Platelet Volume 10.3 fL (9.4-12.4); Monocytes # 1.9 K/mcL (0.0-1.3); Monocytes % 11.8 %; Nucleated Red Blood Cells 0.1 /100 WBC (0); Platelet Count 392 K/mcL (140-400); Red Blood Count 3.52 M/mcL (4.19-5.50); Red Cell Distribution Width 13.6 % (11.5-14.5); Segmented Neutrophils % 68.8 %
[2017-07-06 05:34] LABS: Platelet Estimate Normal (Normal)
[2017-07-06] MEDS: *HR* HYDROmorphone 20 MG/20 ML PCA IVC PRN (05:40)
[2017-07-06] MEDS: Levothyroxine Sodium 100 MCG VIAL IVP SCH (05:46)
[2017-07-06] MEDS: Piperacillin/Tazobactam 3.375 GM/200 ML BAG IVPB SCH ×4 (05:46→23:32)
[2017-07-06] MEDS: *HR* Heparin 5,000 UNIT/ML VIAL SQ SCH ×2 (05:47→17:25)
[2017-07-06] MEDS: Pantoprazole 40 MG VIAL IVP SCH (05:47)
[2017-07-06 07:58] LABS: BUN/Creatinine Ratio 13 (6-26); Blood Urea Nitrogen 8 mg/dL (6-20); Calcium 8.8 mg/dL (8.6-10.3); Carbon Dioxide 24 mEq/L (23-29); Chloride 102 mEq/L (98-107); Glucose 139 mg/dL (70-105); Osmolality,Calculated 283 (280-300); Potassium 3.5 mEq/L (3.5-5.1); Sodium 136 mEq/L (136-145); eGFR For African Americans > 60 (> 60); eGFR For Non-African Americans > 60 (> 60)
--- NOTE | 2017-07-06 07:58 | General Surgery Progress Note ---
<Aliyah Weiss - Last Filed: 07/06/17 08:03> Date of Encounter: 07/06/17 Time of Encounter: 07:56 - Assessment and Plan (1) Acute cholecystitis due to biliary calculus Current Visit: Yes Status: Acute POD #2 - open cholecystectomy and r sayda colectomy w/ intraoperative cholangiogram 2/2 acute cholecystitis + fistula by Dr. Haris Brunner. 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 - aggressive Pulm Toilet - Encourage IS q1hr while awake - serial abd exams - NPO - continue AM labs (2) Entero-colonic fistula Current Visit: Yes Status: Acute As above (4) HTN (hypertension) Current Visit: Yes Status: Chronic PRN IV Lopressor Qualifiers: Hypertension type: essential hypertension Qualified Code(s): I10 - Essential (primary) hypertension (5) Hypothyroid Current Visit: Yes Status: Chronic IV Synthroid while NPO Qualifiers: Hypothyroidism type: unspecified Qualified Code(s): E03.9 - Hypothyroidism , unspecified (6) COPD (chronic obstructive pulmonary disease) Current Visit: Yes Status: Acute Sat 96% on 2 L NC RT consulted Scheduled duonebs, albuterol PRN Supplemental O2 via NC Qualifiers: COPD type: unspecified COPD Qualified Code(s): J44.9 - Chronic obstructive pulmonary disease, unspecified (7) DVT prophylaxis Current Visit: Yes Status: Acute -SCDs -Ambulate hallways with assistance TID Subjective Patient reports: no new complaints (No nausea. No vomiting. Pain rated a 7-8/ 10. ), pain is less, no flatus, no bowel movement, afebrile Objective Vital Signs - Last 8 Hours Temp Pulse Resp BP Pulse Ox 07/06/17 05:17 98.9 F 100 16 129/80 96 07/06/17 02:10 98.1 F 100 15 138/88 96 Intake and Output 07/05/17 07/05/17 07/06/17 15:59 23:59 07:59 Intake Total 1000 / 1000 1380 / 1380 1320 / 1320 Output Total 540 / 540 1605 / 1605 415 / 415 Balance 460 / 460 -225 / -225 905 / 905 Intake: IV Fluids 1000 / 1000 1200 / 1200 1200 / 1200 Lactated Ringers 1,000 ML @ 125 1000 / 1000 1000 / 1000 1000 / 1000 mls/hr IVC .Q8H [facility] Rx#: [id number] Zosyn Premix 3.375 GM/200 ML 3. 200 / 200 200 / 200 375 gm In 200 ml @ 50 mls/hr IVPB Q8H [facility] Rx#:[id number] Oral 180 / 180 120 / 120 Output: Urine 500 / 500 375 / 375 Catheter 500 / 500 Gastric Drainage 1000 / 1000 Wound Drainage 40 / 40 105 / 105 40 / 40 Right Upper Abdomen 40 / 40 105 / 105 40 / 40 Other: Meal npo NPO Percent of Meal Consumed 0% Weight 95 kg Blood Glucose* 166 126 139 Patient Weight 07/06/17 23:59 Weight 95 kg - General physical appearance well developed, moderate pain - Eyes normal ocular movement - Respiratory normal expansion, clear to auscultation - Cardiovascular Cardiovascular exam: Present: NR, no murmurs/rubs/gallops - Abdomen Abdomen: Present: bowel sounds present, soft, tender ( FARIDEH drain in place, draining appropriately, some bile noted), surgical scars ([place] intact, No oozing, no drainage) - Psychiatric oriented to time, oriented to place, speech is normal - Labs 07/06/17 04:29 07/06/17 07:00 - VTE Documentation of Mechanical Device: Intermittent pneumatic compression device Consult Discharge Plan - Plan Referrals: Artemio Briggs DO [Primary Care Provider] - <Haris Brunner - Last Filed: 07/07/17 13:01> Date of Encounter: 07/06/17 Objective Vital Signs - Last 8 Hours Temp Pulse Resp BP Pulse Ox 07/07/17 11:32 97.7 F 98 16 156/92 97 07/07/17 07:17 98.9 F 100 17 153/76 97 Intake and Output 07/06/17 07/07/17 07/07/17 23:59 07:59 15:59 Intake Total 440 / 440 1200 / 1200 1836 / 1836 Output Total 1520 / 1520 300 / 300 400 / 400 Balance -1080 / -1080 900 / 900 1436 / 1436 Intake: IV Fluids 200 / 200 1200 / 1200 1356 / 1356 Lactated Ringers 1,000 ML @ 125 1000 / 1000 1356 / 1356 mls/hr IVC .Q8H [facility] Rx#: [id number] Zosyn Premix 3.375 GM/200 ML 3. 200 / 200 200 / 200 375 gm In 200 ml @ 50 mls/hr IVPB Q8H [facility] Rx#:[id number] Oral 240 / 240 480 / 480 Output: Urine 1500 / 1500 300 / 300 400 / 400 Wound Drainage Right Upper Abdomen Other: Meal Breakfast Blood Glucose* 141 135 136 - Labs 07/07/17 04:18 07/07/17 04:18 Diabetes panel 07/07/17 Range/Units 04:18 Sodium 138 (136-145) mEq/L Potassium 3.4 L (3.5-5.1) mEq/L Chloride 104 (98-107) mEq/L Carbon Dioxide 23 (23-29) mEq/L BUN 6 (6-20) mg/dL Creatinine 0.58 L (0.70-1.30) mg/dL Glucose 132 H (70-105) mg/dL Calcium 8.8 (8.6-10.3) mg/dL Albumin 3.0 L (3.5-5.7) g/dL Calcium panel 07/07/17 Range/Units 04:18 Calcium 8.8 (8.6-10.3) mg/dL Albumin 3.0 L (3.5-5.7) g/dL Pituitary panel 07/07/17 Range/Units 04:18 Sodium 138 (136-145) mEq/L Potassium 3.4 L (3.5-5.1) mEq/L Chloride 104 (98-107) mEq/L Carbon Dioxide 23 (23-29) mEq/L BUN 6 (6-20) mg/dL Creatinine 0.58 L (0.70-1.30) mg/dL Glucose 132 H (70-105) mg/dL Calcium 8.8 (8.6-10.3) mg/dL Adrenal panel 07/07/17 Range/Units 04:18 Sodium 138 (136-145) mEq/L Potassium 3.4 L (3.5-5.1) mEq/L Chloride 104 (98-107) mEq/L Carbon Dioxide 23 (23-29) mEq/L BUN 6 (6-20) mg/dL Creatinine 0.58 L (0.70-1.30) mg/dL Glucose 132 H (70-105) mg/dL Calcium 8.8 (8.6-10.3) mg/dL Albumin 3.0 L (3.5-5.7) g/dL - Attending Attestation I examined this patient and my medical decision-making was reviewed with the Resident Physician. I agree with the documented findings, disposition and treatment plan as described except to the extent set forth below. The patient is seen and evaluated on morning rounds with rest. He has bowel sounds. I will remove the nasogastric tube today but keep him nothing by mouth. He is progressing well from surgery. There is some confusion about the diagnosis. 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 This necessitated open cholecystectomy as well as open right hemicolectomy and drainage of subhepatic abscess Haris Brunner MD FACS
[2017-07-07] MEDS: Ringers Solution, Lactated 1,000 ML IVC SCH ×4 (01:26→18:04)
[2017-07-07] MEDS: Ipratropium/Albuterol Neb 3 ML IH SCH ×5 (03:34→23:09)
[2017-07-07 05:32] LABS: Basophils # 0.1 K/mcL (0.0-0.2); Basophils % 0.5 %; Eosinophils # 0.8 K/mcL (0.0-0.6); Eosinophils % 6.7 %; Hematocrit 28.1 % (37.5-50.1); Hemoglobin 9.9 g/dL (12.9-16.9); Immature Granulocytes % 0.5 % (0-4); Lymphocytes # 2.1 K/mcL (0.6-4.6); Lymphocytes % 18.9 %; Mean Corpuscular HGB Conc 35.2 g/dL (31.6-35.5); Mean Corpuscular Hemoglobin 30.5 pg (28.0-33.3); Mean Corpuscular Volume 86.5 fL (83.0-100.0); Mean Platelet Volume 10.8 fL (9.4-12.4); Monocytes # 1.3 K/mcL (0.0-1.3); Monocytes % 11.2 %; Neutrophils # 7.1 K/mcL (1.6-8.9); Platelet Count 424 K/mcL (140-400); Red Blood Count 3.25 M/mcL (4.19-5.50); Red Cell Distribution Width 13.6 % (11.5-14.5); Segmented Neutrophils % 62.2 %
[2017-07-07] MEDS: Chloraseptic Spray 177 ML BOTTLE MM SCH ×5 (05:45→20:13)
[2017-07-07 05:48] LABS: BUN/Creatinine Ratio 10 (6-26); Blood Urea Nitrogen 6 mg/dL (6-20); Calcium 8.8 mg/dL (8.6-10.3); Carbon Dioxide 23 mEq/L (23-29); Chloride 104 mEq/L (98-107); Glucose 132 mg/dL (70-105); Magnesium 1.7 mg/dL (1.6-2.6); Osmolality,Calculated 285 (280-300); Potassium 3.4 mEq/L (3.5-5.1); Sodium 138 mEq/L (136-145); eGFR For African Americans > 60 (> 60); eGFR For Non-African Americans > 60 (> 60)
[2017-07-07] MEDS: Piperacillin/Tazobactam 3.375 GM/200 ML BAG IVPB SCH ×3 (05:48→20:06)
[2017-07-07] MEDS: Levothyroxine Sodium 100 MCG VIAL IVP SCH (06:12)
[2017-07-07] MEDS: *HR* Heparin 5,000 UNIT/ML VIAL SQ SCH ×2 (06:12→18:02)
[2017-07-07] MEDS: Pantoprazole 40 MG VIAL IVP SCH (06:12)
--- NOTE | 2017-07-07 06:15 | General Surgery Progress Note ---
<Aliyah Weiss - Last Filed: 07/07/17 08:36> Date of Encounter: 07/07/17 Time of Encounter: 06:13 - Assessment and Plan (1) Acute cholecystitis due to biliary calculus Current Visit: Yes Status: Acute POD #3 - open cholecystectomy and r sayda colectomy w/ intraoperative cholangiogram 2/2 acute cholecystitis + fistula by Dr. Haris Brunner. -NG tube removed yesterday -monitor HARSH drainage, draining well this morning -Zosyn day 4 - d/c COMMERCIAL ASSISTANT. Transition pain management to patient's home medication -Transition patient to clear liquid diet. 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 As above (3) Intermittent confusion Current Visit: Yes Status: Acute Pt endorses confusion at night and this is likely 2/2 to sleep deprivation and may be side effect due to pain management needs Educated patient on symptoms and recommend frequent reorientation by nursing staff and family members Encouraged participation in treatment, and will transition from COMMERCIAL ASSISTANT pump to patient's home medication Maintain activity level: pt is ambulatory and should walk three times daily, if fatigued and unable to do this should undergo full range of movement exercises for 15 minutes 3 times daily. PT/OT on consult (4) HTN (hypertension) Current Visit: Yes Status: Chronic Continue monitor vital signs. BP within normal limits PRN IV Lopressor Qualifiers: Hypertension type: essential hypertension Qualified Code(s): I10 - Essential (primary) hypertension (5) Hypothyroid Current Visit: Yes Status: Chronic Continue management.Plan to transition to patient's home PO levothyroxine Qualifiers: Hypothyroidism type: unspecified Qualified Code(s): E03.9 - Hypothyroidism , unspecified (6) COPD (chronic obstructive pulmonary disease) Current Visit: Yes Status: Acute Monitor O2 sat RT consulted Scheduled duonebs, albuterol PRN Supplemental O2 via NC Qualifiers: COPD type: unspecified COPD Qualified Code(s): J44.9 - Chronic obstructive pulmonary disease, unspecified (7) DVT prophylaxis Current Visit: Yes Status: Acute -SCDs -Ambulate hallways with assistance TID Subjective Patient reports: pain is less (Patient rates pain as 4-5/10. Patient hopes to transition to PO pain meds. ), no flatus, no bowel movement Narrative: Patient complains of "hallucinogens"] Objective Vital Signs - Last 8 Hours Temp Pulse Resp BP Pulse Ox 07/07/17 03:48 98.4 F 88 16 136/78 97 07/06/17 23:39 98.5 F 97 14 112/73 96 Intake and Output 07/06/17 07/06/17 07/07/17 15:59 23:59 07:59 Intake Total 1200 / 1200 440 / 440 1200 / 1200 Output Total 1090 / 1090 1520 / 1520 Balance 110 / 110 -1080 / -1080 1200 / 1200 Intake: IV Fluids 1200 / 1200 200 / 200 1200 / 1200 Lactated Ringers 1,000 ML @ 125 1000 / 1000 1000 / 1000 mls/hr IVC .Q8H JERILYN Rx#: [id number] Zosyn Premix 3.375 GM/200 ML 3. 200 / 200 200 / 200 200 / 200 375 gm In 200 ml @ 50 mls/hr IVPB Q8H JERILYN Rx#:[id number] Oral 0 / 0 240 / 240 Output: Urine 650 / 650 1500 / 1500 Gastric Drainage 400 / 400 Wound Drainage 40 / 40 20 / 20 Right Upper Abdomen 40 / 40 20 / 20 Other: Meal NPO Percent of Meal Consumed 0% Blood Glucose* 141 135 - General physical appearance no distress, other (pt sitting up comfortably ) - Eyes normal ocular movement - Respiratory normal expansion, normal respiratory effort, clear to auscultation, other ( nasal canula) - Cardiovascular Cardiovascular exam: Present: RRR, no murmurs/rubs/gallops - Abdomen Abdomen: Present: bowel sounds present, soft, non tender Additional Comments: Harsh drain in place, no bilious fluid seen this AM, appprox. 25 mL in drain this AM - Incision Incision: Present: clean and dry, intact (fela in place) - Neurologic normal coordination - Psychiatric oriented to person, oriented to place, speech is normal - Labs 07/07/17 04:18 07/07/17 04:18 Diabetes panel 07/06/17 07/07/17 Range/Units 07:00 04:18 Sodium 136 138 (136-145) mEq/L Potassium 3.5 3.4 L (3.5-5.1) mEq/L Chloride 102 104 (98-107) mEq/L Carbon Dioxide 24 23 (23-29) mEq/L BUN 8 6 (6-20) mg/dL Creatinine 0.63 L 0.58 L (0.70-1.30) mg/dL Glucose 139 H 132 H (70-105) mg/dL Calcium 8.8 8.8 (8.6-10.3) mg/dL Albumin 3.0 L (3.5-5.7) g/dL Calcium panel 07/06/17 07/07/17 Range/Units 07:00 04:18 Calcium 8.8 8.8 (8.6-10.3) mg/dL Albumin 3.0 L (3.5-5.7) g/dL Pituitary panel 07/06/17 07/07/17 Range/Units 07:00 04:18 Sodium 136 138 (136-145) mEq/L Potassium 3.5 3.4 L (3.5-5.1) mEq/L Chloride 102 104 (98-107) mEq/L Carbon Dioxide 24 23 (23-29) mEq/L BUN 8 6 (6-20) mg/dL Creatinine 0.63 L 0.58 L (0.70-1.30) mg/dL Glucose 139 H 132 H (70-105) mg/dL Calcium 8.8 8.8 (8.6-10.3) mg/dL Adrenal panel 07/06/17 07/07/17 Range/Units 07:00 04:18 Sodium 136 138 (136-145) mEq/L Potassium 3.5 3.4 L (3.5-5.1) mEq/L Chloride 102 104 (98-107) mEq/L Carbon Dioxide 24 23 (23-29) mEq/L BUN 8 6 (6-20) mg/dL Creatinine 0.63 L 0.58 L (0.70-1.30) mg/dL Glucose 139 H 132 H (70-105) mg/dL Calcium 8.8 8.8 (8.6-10.3) mg/dL Albumin 3.0 L (3.5-5.7) g/dL - VTE Documentation of Mechanical Device: Intermittent pneumatic compression device Consult Discharge Plan - Plan Referrals: Artemio Briggs, [Primary Care Provider] - <Haris Brunner - Last Filed: 07/07/17 13:05> Date of Encounter: 07/07/17 Objective Vital Signs - Last 8 Hours Temp Pulse Resp BP Pulse Ox 07/07/17 11:32 97.7 F 98 16 156/92 97 07/07/17 07:17 98.9 F 100 17 153/76 97 Intake and Output 07/06/17 07/07/17 07/07/17 23:59 07:59 15:59 Intake Total 440 / 440 1200 / 1200 1836 / 1836 Output Total 1520 / 1520 300 / 300 400 / 400 Balance -1080 / -1080 900 / 900 1436 / 1436 Intake: IV Fluids 200 / 200 1200 / 1200 1356 / 1356 Lactated Ringers 1,000 ML @ 125 1000 / 1000 1356 / 1356 mls/hr IVC .Q8H JERILYN Rx#: [id number] Zosyn Premix 3.375 GM/200 ML 3. 200 / 200 200 / 200 375 gm In 200 ml @ 50 mls/hr IVPB Q8H JERILYN Rx#:[id number] Oral 240 / 240 480 / 480 Output: Urine 1500 / 1500 300 / 300 400 / 400 Wound Drainage 20 / 20 Right Upper Abdomen 20 / 20 Other: Meal Breakfast Blood Glucose* 141 135 136 - Labs 07/07/17 04:18 07/07/17 04:18 Diabetes panel 07/07/17 Range/Units 04:18 Sodium 138 (136-145) mEq/L Potassium 3.4 L (3.5-5.1) mEq/L Chloride 104 (98-107) mEq/L Carbon Dioxide 23 (23-29) mEq/L BUN 6 (6-20) mg/dL Creatinine 0.58 L (0.70-1.30) mg/dL Glucose 132 H (70-105) mg/dL Calcium 8.8 (8.6-10.3) mg/dL Albumin 3.0 L (3.5-5.7) g/dL Calcium panel 07/07/17 Range/Units 04:18 Calcium 8.8 (8.6-10.3) mg/dL Albumin 3.0 L (3.5-5.7) g/dL Pituitary panel 07/07/17 Range/Units 04:18 Sodium 138 (136-145) mEq/L Potassium 3.4 L (3.5-5.1) mEq/L Chloride 104 (98-107) mEq/L Carbon Dioxide 23 (23-29) mEq/L BUN 6 (6-20) mg/dL Creatinine 0.58 L (0.70-1.30) mg/dL Glucose 132 H (70-105) mg/dL Calcium 8.8 (8.6-10.3) mg/dL Adrenal panel 07/07/17 Range/Units 04:18 Sodium 138 (136-145) mEq/L Potassium 3.4 L (3.5-5.1) mEq/L Chloride 104 (98-107) mEq/L Carbon Dioxide 23 (23-29) mEq/L BUN 6 (6-20) mg/dL Creatinine 0.58 L (0.70-1.30) mg/dL Glucose 132 H (70-105) mg/dL Calcium 8.8 (8.6-10.3) mg/dL Albumin 3.0 L (3.5-5.7) g/dL - Attending Attestation I examined this patient and my medical decision-making was reviewed with the Resident Physician. I agree with the documented findings, disposition and treatment plan as described except to the extent set forth below. The patient was seen and evaluated on morning rounds with the resident. He does have bowel sounds today. There is no flatus yet. I think it is reasonable for him to start clear liquids and his oral home medicines. He is progressing well Haris Brunner MD FACS
[2017-07-07] MEDS ORDERED: traMADol 50 MG TABLET PO PRN (08:14)
[2017-07-07] MEDS: carBAMazepine 200 MG TABLET PO SCH ×2 (15:23→23:47)
[2017-07-07] MEDS: *HR* OxyCODONE/APAP 10/325 TABLET PO PRN (15:24)
[2017-07-08] MEDS: Chloraseptic Spray 177 ML BOTTLE MM SCH ×4 (00:19→11:43)
[2017-07-08] MEDS: Ringers Solution, Lactated 1,000 ML IVC SCH ×2 (01:31→10:03)
[2017-07-08] MEDS: Ipratropium/Albuterol Neb 3 ML IH SCH ×3 (03:04→11:58)
[2017-07-08] MEDS: Piperacillin/Tazobactam 3.375 GM/200 ML BAG IVPB SCH (03:37)
[2017-07-08] MEDS: *HR* OxyCODONE/APAP 10/325 TABLET PO PRN (05:20)
[2017-07-08] MEDS: *HR* Heparin 5,000 UNIT/ML VIAL SQ SCH (05:21)
[2017-07-08] MEDS: Pantoprazole 40 MG VIAL IVP SCH (05:25)
[2017-07-08 05:54] LABS: Basophils # 0.1 K/mcL (0.0-0.2); Basophils % 0.8 %; Eosinophils # 0.7 K/mcL (0.0-0.6); Eosinophils % 6.1 %; Hematocrit 31.4 % (37.5-50.1); Immature Granulocytes % 0.5 % (0-4); Lymphocytes # 1.6 K/mcL (0.6-4.6); Lymphocytes % 15.4 %; Mean Corpuscular Hemoglobin 29.8 pg (28.0-33.3); Mean Corpuscular Volume 85.1 fL (83.0-100.0); Mean Platelet Volume 10.3 fL (9.4-12.4); Monocytes # 1.4 K/mcL (0.0-1.3); Monocytes % 12.7 %; Neutrophils # 6.8 K/mcL (1.6-8.9); Platelet Count 484 K/mcL (140-400); Red Blood Count 3.69 M/mcL (4.19-5.50); Red Cell Distribution Width 13.9 % (11.5-14.5); Segmented Neutrophils % 64.5 %
[2017-07-08 06:08] LABS: BUN/Creatinine Ratio 9 (6-26); Blood Urea Nitrogen 6 mg/dL (6-20); Calcium 8.7 mg/dL (8.6-10.3); Carbon Dioxide 25 mEq/L (23-29); Chloride 106 mEq/L (98-107); Glucose 137 mg/dL (70-105); Osmolality,Calculated 284 (280-300); Potassium 3.2 mEq/L (3.5-5.1); Sodium 137 mEq/L (136-145); eGFR For African Americans > 60 (> 60); eGFR For Non-African Americans > 60 (> 60)
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
[2017-07-08] MEDS: carBAMazepine 200 MG TABLET PO SCH (08:10)
[2017-07-08 11:35] VITALS: BP 118/79
== END 2017-07-08 15:15 | disposition home or self-care (01) | DRG 414 ==
LOC: SAMDAY 09:21 → 3ANU 09:29
PROVIDERS: ADMIT Surgery; ATTEND Surgery

== ENCOUNTER 2017-07-21 17:08 | Inpatient (IN) ==
[2017-07-21 17:54] LABS: Basophils # 0.1 K/mcL (0.0-0.2); Basophils % 0.5 %; Eosinophils # 0.1 K/mcL (0.0-0.6); Eosinophils % 0.7 %; Hemoglobin 12.4 g/dL (12.9-16.9); Immature Granulocytes % 0.5 % (0-4); Lymphocytes # 2.8 K/mcL (0.6-4.6); Lymphocytes % 18.2 %; Mean Corpuscular HGB Conc 34.4 g/dL (31.6-35.5); Mean Corpuscular Hemoglobin 30.8 pg (28.0-33.3); Mean Corpuscular Volume 89.6 fL (83.0-100.0); Mean Platelet Volume 9.4 fL (9.4-12.4); Monocytes # 1.3 K/mcL (0.0-1.3); Monocytes % 8.7 %; Neutrophils # 10.8 K/mcL (1.6-8.9); Platelet Count 510 K/mcL (140-400); Red Blood Count 4.02 M/mcL (4.19-5.50); Red Cell Distribution Width 16.1 % (11.5-14.5); Segmented Neutrophils % 71.4 %
[2017-07-21] MEDS ORDERED: *HR* FentaNYL (PF) 100 MCG/2 ML VIAL IVP ONE (18:13)
[2017-07-21] MEDS ORDERED: 0.9 % Sodium Chloride 1,000 ML IVC ONE (18:13)
[2017-07-21] MEDS ORDERED: Ondansetron 4 MG/2 ML VIAL IVP ONE (18:13)
[2017-07-21 18:23] LABS: Alanine Aminotransferase 11 Units/L (7-52); Albumin/Globulin Ratio 1.3 (1.1-2.2); Alkaline Phosphatase 41 Units/L (34-104); Aspartate Amino Transferase 12 Units/L (13-39); BUN/Creatinine Ratio 14 (6-26); Bilirubin,Direct 0.2 mg/dL (0.0-0.2); Bilirubin,Indirect 0.6 mg/dL (0.0-1.2); Bilirubin,Total 0.8 mg/dL (0.3-1.0); Blood Urea Nitrogen 12 mg/dL (6-20); Calcium 9.1 mg/dL (8.6-10.3); Carbon Dioxide 22 mEq/L (23-29); Chloride 100 mEq/L (98-107); Glucose 159 mg/dL (70-105); Lipase 52 Units/L (11-82); Osmolality,Calculated 275 (280-300); Potassium 3.9 mEq/L (3.5-5.1); Sodium 131 mEq/L (136-145); eGFR For African Americans > 60 (> 60); eGFR For Non-African Americans > 60 (> 60)
--- NOTE | 2017-07-21 18:25 | Emergency Department Note ---
Disposition Clinical Impression: Abdominal pain Qualifiers: Abdominal location: unspecified location Qualified Code(s): R10.9 - Unspecified abdominal pain Fever Qualifiers: Fever type: unspecified Qualified Code(s): R50.9 - Fever, unspecified Disposition: Still a Patient Condition: Good Forms: ED Satisfaction Letter, Work/School Release Time of Disposition: 18:40 General Adult HPI - General Chief complaint: ED Abdominal Pain Stated complaint: Fever, abd pain S/P bowel resection Time Seen by Provider: 07/21/17 18:02 Source: patient Mode of arrival: ambulatory Limitations: no limitations Nursing Notes Reviewed: Yes Vital Signs Reviewed: Yes - History of Present Illness HPI Narrative: Patient presents emergency room from home. Patient had a recent surgery removing his gallbladder and part of his intestine secondary to infection. Patient has been doing well at home on this timeframe but over the last 24 hours she has had right lower quadrant abdominal discomfort pain and a fever up to 103 at his house. Patient denies any other family members have been a little. Denies any trauma or injury. Currently denying chest pain shortness breath headache vision changes nausea vomiting or diarrhea. His main complaint is right lower quadrant abdominal pain. Plan to him he still has his appendix. He contacted his surgeon and they recommended come to emergency room for evaluation Onset (ago): day(s) Location: abdomen Radiation: non-radiation Pain Severity: moderate Pain Scale: 6 Quality: stabbing Consistency: constant Improves with: nothing Worsens with: nothing Associated symptoms: Reports: fever/chills, loss of appetite, malaise. Denies: nausea/vomiting - Related Data Home Medications Medication Instructions Recorded Confirmed Cyclobenzaprine [Flexeril] 10 mg PO TID 01/28/15 07/02/17 Fenofibrate 160 mg PO 01/28/15 07/02/17 Levothyroxine Sodium [Synthroid] 75 mcg PO QAM 01/28/15 07/02/17 Lisinopril [Zestril] 2.5 mg PO QAM 01/28/15 07/02/17 Naproxen [Naprosyn] 500 mg PO BID 01/28/15 07/02/17 Terazosin [Hytrin] 4 mg PO 01/28/15 07/02/17 Testosterone Cypionate 0.25 ml IM TH 01/28/15 07/02/17 [Depo-Testosterone] TraMADol [Ultram] 50 mg PO Q6HR PRN 01/28/15 07/02/17 Albuterol Sulfate [Albuterol 2 puff IH Q4HR PRN 01/17/16 07/02/17 Inhaler] Cholecalciferol (D-3) [Vitamin D] 2,000 unit PO DAILY 01/17/16 07/02/17 Fish Oil/Dha/Epa [Fish Oil 1,200 1 each PO DAILY 01/17/16 07/02/17 mg Fish Oil] Fluticasone Propionate Nasal 1 spr NS DAILY 01/17/16 07/02/17 [Flonase] Montelukast [Singulair] 10 mg PO HS 01/17/16 07/02/17 Multivitamin [Multi-Day Vitamins] 1 each PO DAILY 01/17/16 07/02/17 Omeprazole [PriLOSEC] 20 mg PO DAILY 01/17/16 07/02/17 Tadalafil [Cialis] 20 mg PO AD PRN 01/17/16 07/02/17 Umeclidinium Brm/Vilanterol Tr 1 puff IH DAILY 01/17/16 07/02/17 [Anoro Ellipta 62.5-25 Mcg INH] Vitamin B Complex [B Complex] 1 each PO DAILY 01/17/16 07/02/17 Diclofenac Sodium [Voltaren] 1 appl TP QID 07/02/17 07/02/17 Roflumilast [Daliresp] 500 mcg PO DAILY 07/02/17 07/02/17 carBAMazepine [Tegretol] 200 mg PO Q8HR 07/02/17 07/02/17 Previous Rx's Medication Instructions Recorded Chloraseptic [place] [Chloraseptic] 2 spray MM Q4HR bottle 07/08/17 Docusate [Colace] 100 mg PO BID #20 capsule 07/08/17 OxyCODONE/APAP 10/325 [Percocet 1 each PO Q6HR PRN #28 tablet 07/08/17 10/325 MG] Allergies Allergy/AdvReac Type Severity Reaction Status Date / Time phenytoin [From Dilantin] Allergy Hives Verified 07/11/17 10:19 Sulfa (Sulfonamide Allergy Hives Verified 07/11/17 10:19 Antibiotics) All systems ED: reviewed and negative except as stated. Review of Systems: As Per HPI Constitutional: Reports: fever, chills. Denies: weakness Cardiovascular: Denies: chest pain, palpitations, dyspnea on exertion Respiratory: Denies: cough, dyspnea, wheezes, hemoptysis Gastrointestinal: Denies: abdominal pain Genitourinary: Denies: urgency, dysuria, frequency Musculoskeletal: Denies: back pain, neck pain Neurological: Denies: headache Past Medical History - Past Medical History Attestation: Yes The following information was validated with the patient. Source: patient Medical history: Reports: arthritis, COPD, GERD, hypertension, thyroid disease, other Surgical history: Reports: splenectomy, vasectomy, other Psychiatric history: Reports: no psych history - Social History Smoking Status: Former smoker Smokeless Tobacco Status: No Alcohol use: Reports: occasionally Drug use: Reports: none Physical Exam - General Limitations: no limitations General appearance: alert - Head Head exam: atraumatic, normocephalic, normal inspection - Chest Chest inspection: Present: normal inspection, symmetric chest wall rise - Respiratory Respiratory exam: Present: normal lung sounds bilaterally. Absent: respiratory distress, wheezes, accessory muscle use - Cardiovascular Cardiovascular exam: Present: normal rhythm, tachycardia, normal heart sounds - Abdominal Exam Abdominal exam: Present: soft, tenderness, tenderness at McBurney's Point. Absent: distention, guarding, rebound, rigidity, trauma, Garibay's sign, Rovsing' s sign - Extremities Exam Extremities exam: Present: normal inspection, full ROM, normal capillary refill - Back Exam Back exam: Present: normal inspection, full ROM. Absent: tenderness - Neurological Exam Neurological exam: Present: alert, oriented X3, CN II-XII intact, normal gait - Skin Skin exam: Present: warm, dry, intact, normal color Course Course Narrative: Patient seen and examined at the time of arrival. See history of present illness. 57-year-old male sent into the emergency room by his surgical physician Dr. Haris chaudhry. Recommendation and concern was noted secondary to right lower quadrant abdominal pain as well as fevers. Patient had recent cholecystectomy as well as partial bowel resection. Patient is presenting here today with right lower quadrant abdominal pain and fever up to 103 at home. He is tachycardic and febrile here on arrival. Patient's abdomen is soft he has no signs of rigidity. The midline abdominal surgical site appears to be healing appropriately. He does have tenderness in right lower quadrant of the abdomen that is into the McBurney's point distribution. Patient is alert oriented speaking in full sentences. Fluids premedication positive medication be provider this time. CT with IV and oral contrast will be completed as well as screening laboratory workup. Patient will have consultation placed up to the on-call surgeon as needed. Patient is in no acute distress at this point but is concerning for possible intervention abdominal infectious etiology. No analyzed with the start of this point [place] definitively that there is an infectious source in his abdomen and this is not a viral syndrome. Patient will be signed out to the nighttime physician Dr. Murdock and Dr. De La Garza. He will complete the course of care. Vital Signs Temperature 100.7 F H 07/21/17 17:19 Pulse Rate 128 07/21/17 17:19 Respiratory Rate 18 07/21/17 17:19 Blood Pressure 105/64 07/21/17 17:19 O2 Sat by Pulse Oximetry 95 07/21/17 17:19 Temperature 100.7 F H 07/21/17 17:19 Pulse Rate 122 07/21/17 18:05 Respiratory Rate 20 07/21/17 18:05 Blood Pressure 105/64 07/21/17 17:19 O2 Sat by Pulse Oximetry 97 07/21/17 18:05 Oxygen Delivery Oxygen Delivery Nasal Cannula Medical Decision Making - [facility] Narrative Medical decision making narrative: Abdominal pain, fever, tachycardia - Medical Records Medical records reviewed: Yes I reviewed the patient's medical records. - Lab Data Lab results reviewed: Yes I reviewed the patient's lab results. Result diagrams: 07/21/17 17:42 Lab Results 07/21/17 Range/Units 17:42 WBC 15.1 H (4.3-11.1) K/mcL RBC 4.02 L (4.19-5.50) M/mcL Hgb 12.4 L (12.9-16.9) g/dL Hct 36.0 L (37.5-50.1) % MCV 89.6 (83.0-100.0) fL MCH 30.8 (28.0-33.3) pg MCHC 34.4 (31.6-35.5) g/dL RDW 16.1 H (11.5-14.5) % Plt Count 510 H (140-400) K/mcL MPV 9.4 (9.4-12.4) fL Immature Gran % 0.5 (0-4) % Seg Neutrophils % 71.4 % Lymphocytes % 18.2 % Monocytes % 8.7 % Eosinophils % 0.7 % Basophils % 0.5 % Neutrophils # 10.8 H (1.6-8.9) K/mcL Lymphocytes # 2.8 (0.6-4.6) K/mcL Monocytes # 1.3 (0.0-1.3) K/mcL Eosinophils # 0.1 (0.0-0.6) K/mcL Basophils # 0.1 (0.0-0.2) K/mcL - Radiology Data Radiology results reviewed: Yes I reviewed the patient's radiology results.
[2017-07-21 19:36] LABS: Bilirubin,Urine Negative (Negative); Blood,Urine Negative (Negative); Clarity,Urine Clear (Clear); Color,Urine Dark Yellow (Yellow); Glucose,Urine (UA) Normal (Normal); Ketones,Urine Negative (Negative); Leukocyte Esterase,Urine Negative (Negative); Nitrite,Urine Negative (Negative); Protein,Urine Negative (Neg-Trace); Specific Gravity,Urine 1.016 (1.010-1.025); Urobilinogen,Urine Normal (Normal)
--- NOTE | 2017-07-21 20:06 | Emergency Department Note ---
Disposition Clinical Impression: Anastomotic leak of intestine Abdominal pain Qualifiers: Abdominal location: unspecified location Qualified Code(s): R10.9 - Unspecified abdominal pain Fever Qualifiers: Fever type: unspecified Qualified Code(s): R50.9 - Fever, unspecified Disposition: Admitted As Inpatient Condition: Good Abdominal Pain HPI - General Chief Complaint: ED Abdominal Pain Stated Complaint: Fever, abd pain S/P bowel resection Time Seen by Provider: 07/21/17 18:02 Source: patient Mode of arrival: ambulatory - History of Present Illness Pain Scale: 6 - Related Data Home Medications Medication Instructions Recorded Confirmed Cyclobenzaprine [Flexeril] 10 mg PO TID 01/28/15 07/02/17 Fenofibrate 160 mg PO HS 01/28/15 07/02/17 Levothyroxine Sodium [Synthroid] 75 mcg PO QAM 01/28/15 07/02/17 Lisinopril [Zestril] 2.5 mg PO QAM 01/28/15 07/02/17 Naproxen [Naprosyn] 500 mg PO BID 01/28/15 07/02/17 Terazosin [Hytrin] 4 mg PO HS 01/28/15 07/02/17 Testosterone Cypionate 0.25 ml IM TH 01/28/15 07/02/17 [Depo-Testosterone] TraMADol [Ultram] 50 mg PO Q6HR PRN 01/28/15 07/02/17 Albuterol Sulfate [Albuterol 2 puff IH Q4HR PRN 01/17/16 07/02/17 Inhaler] Cholecalciferol (D-3) [Vitamin D] 2,000 unit PO DAILY 01/17/16 07/02/17 Fish Oil/Dha/Epa [Fish Oil 1,200 1 each PO DAILY 01/17/16 07/02/17 mg Fish Oil] Fluticasone Propionate Nasal 1 spr NS DAILY 01/17/16 07/02/17 [Flonase] Montelukast [Singulair] 10 mg PO HS 01/17/16 07/02/17 Multivitamin [Multi-Day Vitamins] 1 each PO DAILY 01/17/16 07/02/17 Omeprazole [PriLOSEC] 20 mg PO DAILY 01/17/16 07/02/17 Tadalafil [Cialis] 20 mg PO AD PRN 01/17/16 07/02/17 Umeclidinium Brm/Vilanterol Tr 1 puff IH DAILY 01/17/16 07/02/17 [Anoro Ellipta 62.5-25 Mcg INH] Vitamin B Complex [B Complex] 1 each PO DAILY 01/17/16 07/02/17 Diclofenac Sodium [Voltaren] 1 appl TP QID 07/02/17 07/02/17 Roflumilast [Daliresp] 500 mcg PO DAILY 07/02/17 07/02/17 carBAMazepine [Tegretol] 200 mg PO Q8HR 07/02/17 07/02/17 Previous Rx's Medication Instructions Recorded Chloraseptic [place] [Chloraseptic] 2 spray MM Q4HR bottle 07/08/17 Docusate [Colace] 100 mg PO BID #20 capsule 07/08/17 OxyCODONE/APAP 10/325 [Percocet 1 each PO Q6HR PRN #28 tablet 07/08/17 10/325 MG] Allergies Allergy/AdvReac Type Severity Reaction Status Date / Time phenytoin [From Dilantin] Allergy Hives Verified 07/11/17 10:19 Sulfa (Sulfonamide Allergy Hives Verified 07/11/17 10:19 Antibiotics) Constitutional: Reports: fever, chills. Denies: weakness Cardiovascular: Denies: chest pain, palpitations, dyspnea on exertion Respiratory: Denies: cough, dyspnea, wheezes, hemoptysis Gastrointestinal: Denies: abdominal pain Genitourinary: Denies: urgency, dysuria, frequency Musculoskeletal: Denies: back pain, neck pain Neurological: Denies: headache Abdominal Pain PMH - Past Medical History Medical history: Reports: arthritis, COPD, GERD, hypertension, thyroid disease, other Male Surgical History: Reports: cholecystectomy, colectomy Psychiatric history: Reports: no psych history - Social History Smoking status: Former smoker Alcohol use: Reports: occasionally Drug use: Reports: none Physical Exam - General Limitations: no limitations General appearance: alert Course Course Narrative: Patient signed out from dayshift team pending imaging. Please see their documentation for details. 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 Reports pain started yesterday. Took his temperature at home and was a little over 101. No other symptoms during this time. Currently awaiting CT scan with oral and IV contrast. Patient voices no complaints at this time. On exam he is on 2 L nasal cannula which she reports is at his baseline. He is conversationally dyspneic but in no acute distress. He states that this is his baseline. His heart is tachycardic without murmurs. Lungs are clear. Abdomen has focal right lower quadrant tenderness on exam without peritoneal features. He has a well-healing vertical incision site with fela in place. - Reevaluation(s) Reevaluation #1: Discussed results of imaging as well as labs with the patient. He is agreeable with IV antibiotics and admission to the hospital. - Consultations Consultation #1: I spoke with the on-call surgeon Dr. Brown. Discussed the patient's history exam imaging labs and vital signs as well as interventions. He accepts the patient to Dr. Brunner's service. Vital Signs Temperature 100.7 F H 07/21/17 17:19 Pulse Rate 128 07/21/17 17:19 Respiratory Rate 18 07/21/17 17:19 Blood Pressure 105/64 07/21/17 17:19 O2 Sat by Pulse Oximetry 95 07/21/17 17:19 Temperature 100.7 F H 07/21/17 17:19 Pulse Rate 99 07/21/17 21:00 Respiratory Rate 18 07/21/17 21:43 Blood Pressure 94/54 07/21/17 21:43 O2 Sat by Pulse Oximetry 99 07/21/17 21:00 Oxygen Delivery Oxygen Delivery Nasal Cannula Abdominal Pain - MDM Narrative Medical decision making narrative: 57-year-old male presents to the ER due to right lower quadrant abdominal pain. 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 This patient was a sign out pending imaging. His CT scan demonstrates increased stranding around the anastomosis with concern for leak as per radiology. Noted have a leukocytosis here. Case discussed with the on-call surgeon. Accepted to surgical service for continued management. Patient was given 1 L of IV fluids, fentanyl, Tylenol as well as a dose of Zosyn here with improvement of his vital signs. He remained hemodynamically stable throughout his ED course. - Lab Data Lab results reviewed: Yes I reviewed the patient's lab results. Result diagrams: 07/21/17 17:42 07/21/17 17:42 Lab Results 07/21/17 07/21/17 07/21/17 Range/Units 17:42 17:42 19:20 WBC 15.1 H (4.3-11.1) K/mcL RBC 4.02 L (4.19-5.50) M/mcL Hgb 12.4 L (12.9-16.9) g/dL Hct 36.0 L (37.5-50.1) % MCV 89.6 (83.0-100.0) fL MCH 30.8 (28.0-33.3) pg MCHC 34.4 (31.6-35.5) g/dL RDW 16.1 H (11.5-14.5) % Plt Count 510 H (140-400) K/mcL MPV 9.4 (9.4-12.4) fL Immature Gran % 0.5 (0-4) % Seg Neutrophils % 71.4 % Lymphocytes % 18.2 % Monocytes % 8.7 % Eosinophils % 0.7 % Basophils % 0.5 % Neutrophils # 10.8 H (1.6-8.9) K/mcL Lymphocytes # 2.8 (0.6-4.6) K/mcL Monocytes # 1.3 (0.0-1.3) K/mcL Eosinophils # 0.1 (0.0-0.6) K/mcL Basophils # 0.1 (0.0-0.2) K/mcL Sodium 131 L (136-145) mEq/L Potassium 3.9 (3.5-5.1) mEq/L Chloride 100 (98-107) mEq/L Carbon Dioxide 22 L (23-29) mEq/L BUN 12 (6-20) mg/dL Creatinine 0.84 (0.70-1.30) mg/dL Est GFR ( Amer) > 60 (> 60) Est GFR (Non-Af Amer) > 60 (> 60) BUN/Creatinine Ratio 14 (6-26) Glucose 159 H (70-105) mg/dL Calculated Osmolality 275 L (280-300) Calcium 9.1 (8.6-10.3) mg/dL Total Bilirubin 0.8 (0.3-1.0) mg/dL Direct Bilirubin 0.2 (0.0-0.2) mg/dL Indirect Bilirubin 0.6 (0.0-1.2) mg/dL AST 12 L (13-39) Units/L ALT 11 (7-52) Units/L Alkaline Phosphatase 41 (34-104) Units/L Serum Total Protein 7.0 (6.4-8.9) g/dL Albumin 4.0 (3.5-5.7) g/dL Globulin 3.0 (2.4-3.5) g/dL Albumin/Globulin Ratio 1.3 (1.1-2.2) Lipase 52 (11-82) Units/L Urine Color Dark Yellow (Yellow) Urine Clarity Clear (Clear) Urine pH 7.0 (5.0-8.0) pH Units Ur Specific [place] 1.016 (1.010-1.025) Urine Protein Negative (Neg-Trace) mg/dL Urine Glucose (UA) Normal (Normal) mg/dL Urine Ketones Negative (Negative) mg/dL Urine Blood Negative (Negative) Urine Nitrite Negative (Negative) Urine Bilirubin Negative (Negative) Urine Urobilinogen Normal (Normal) mg/dL Ur Leukocyte Esterase Negative (Negative) Ur Culture Indicated? NO (NO) - Radiology Data Radiology results reviewed: Yes I reviewed the patient's radiology results. Abdomen/Pelvis CT 07/21/17 18:13 IMPRESSION: Increasing fat stranding surrounding the anastomosis in the right lower quadrant, with several bubbles of gas that appear to be in an extraluminal location, concerning for anastomotic breakdown. At this time, no macro perforation is seen. No focal fluid collections are seen. Bands of opacity within the lower lungs bilaterally, probably atelectasis. Correlate with any clinical evidence of pneumonia. Findings were discussed with Dr. De La Garza At 8:10 pm on 07/21/2017. D/ / Everette Leary MD / Everette Leary MD Interpreting Provider: Everette Leary MD Attestation Statement - Attestation Attestation: I, Lul Murdock MD, personally evaluated this patient and discussed their management with the resident physician. I reviewed the resident's note and agree with the documented findings, medical decision making, and plan of care. This patient was signed out at shift change from Dr. Fraga and Dr. Patrick. Please refer to their notes for complete details of the history and physical examination. Shift change patient is awaiting a CT of the abdomen and pelvis. 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 He presented tonight complaining of increased right lower quadrant abdominal pain and also fever. On examination patient is a well-developed well-nourished male in no acute distress. He is alert and oriented 3. There is no cyanosis. Patient is mildly clammy. Breath sounds are clear and equal bilaterally. Heart tachycardic and regular. Abdomen is soft with moderate right lower quadrant tenderness on direct palpation. Mild guarding. Labs reviewed. CT of the abdomen and pelvis concerning for an anastomotic breakdown with some increased stranding in the right lower quadrant at the anastomosis site and also some extraluminal bubbles of air. No obvious abscess or fluid collection. Dr. De La Garza discussed with the surgeon instructional support services director, Dr. Brown, and patient was accepted for admission to the surgical service.
[2017-07-21] MEDS ORDERED: Piperacillin/Tazobactam 3.375 GM in Water for inj. (sterile) 20 ML IVP ONE (20:21)
[2017-07-22] MEDS ORDERED: 0.9 % Sodium Chloride 1,000 ML IVC SCH (06:29)
[2017-07-22] MEDS ORDERED: OXYCODONE Oral CONC 10 MG/0.5 ML ORAL.SYG SL PRN (06:29)
[2017-07-22] MEDS ORDERED: Ondansetron 4 MG/2 ML VIAL IVP PRN (06:32)
[2017-07-22 07:11] LABS: Basophils # 0.1 K/mcL (0.0-0.2); Basophils % 0.7 %; Eosinophils # 0.1 K/mcL (0.0-0.6); Eosinophils % 0.9 %; Hematocrit 36.8 % (37.5-50.1); Hemoglobin 12.6 g/dL (12.9-16.9); Immature Granulocytes % 0.4 % (0-4); Lymphocytes # 1.9 K/mcL (0.6-4.6); Lymphocytes % 18.3 %; Mean Corpuscular HGB Conc 34.2 g/dL (31.6-35.5); Mean Corpuscular Hemoglobin 30.7 pg (28.0-33.3); Mean Corpuscular Volume 89.5 fL (83.0-100.0); Mean Platelet Volume 9.7 fL (9.4-12.4); Monocytes # 1.2 K/mcL (0.0-1.3); Monocytes % 11.3 %; Neutrophils # 7.2 K/mcL (1.6-8.9); Platelet Count 527 K/mcL (140-400); Red Blood Count 4.11 M/mcL (4.19-5.50); Red Cell Distribution Width 15.9 % (11.5-14.5); Segmented Neutrophils % 68.4 %
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
[2017-07-22] MEDS: Pantoprazole 40 MG VIAL IVP SCH (08:52)
[2017-07-22] MEDS ORDERED: Lidocaine -MPF 1% 2 ML VIAL INFILT ONE (10:29)
[2017-07-22] MEDS ORDERED: *HR* Dextrose 50 % in Water (Syg) 50 ML SYRINGE IVP PRN (10:30)
[2017-07-22] MEDS ORDERED: Dextrose Gel 15 GM/37.5 ML TUBE PO PRN ×2 (10:30)
[2017-07-22] MEDS ORDERED: D5% in Water 1,000 ML IVC PRN (10:30)
[2017-07-22] MEDS ORDERED: Naloxone 0.4 MG/ML INJ IVP PRN (10:33)
[2017-07-22] MEDS ORDERED: *HR* Metoprolol 5 MG/5 ML VIAL IVP PRN (10:39)
[2017-07-22] MEDS: Levothyroxine Sodium 100 MCG VIAL IVP SCH (11:25)
[2017-07-22] MEDS ORDERED: Insulin LISPRO 300 UNITS/3 ML VIAL SQ SCH (12:00)
[2017-07-22] MEDS ORDERED: Ipratropium/Albuterol Neb 3 ML IH PRN (12:30)
[2017-07-22 13:02] LABS: BUN/Creatinine Ratio 13 (6-26); Blood Urea Nitrogen 11 mg/dL (6-20); Calcium 9.3 mg/dL (8.6-10.3); Carbon Dioxide 21 mEq/L (23-29); Chloride 102 mEq/L (98-107); Glucose 138 mg/dL (70-105); Osmolality,Calculated 282 (280-300); Phosphorous 3.9 mg/dL (2.7-4.5); Potassium 3.7 mEq/L (3.5-5.1); Sodium 135 mEq/L (136-145); eGFR For African Americans > 60 (> 60); eGFR For Non-African Americans > 60 (> 60)
[2017-07-22] MEDS ORDERED: D10% in Water 500 ML IVC PRN (13:03)
[2017-07-22] MEDS: carBAMazepine 200 MG TABLET PO SCH (16:47)
[2017-07-22] MEDS: Ketorolac 15 MG/ML VIAL IVP SCH (16:47)
[2017-07-22] MEDS: Insulin LISPRO 300 UNITS/3 ML VIAL SQ SCH ×2 (16:49→20:54)
[2017-07-22] MEDS ORDERED: Clinimix E 5%-15% SOLUTION 2,000 ML with MVI, adult with vitamin K 10 ML IVC SCH (17:00)
[2017-07-22] MEDS ORDERED: *HR* Heparin 5,000 UNIT/ML VIAL SQ SCH (18:00)
[2017-07-22] MEDS: traMADol 50 MG TABLET PO PRN (18:05)
[2017-07-23] MEDS: traMADol 50 MG TABLET PO PRN (00:14)
[2017-07-23] MEDS: 0.9 % Sodium Chloride 1,000 ML IVC SCH ×3 (00:14→17:10)
[2017-07-23] MEDS: carBAMazepine 200 MG TABLET PO SCH ×4 (00:14→23:33)
[2017-07-23] MEDS: Ketorolac 15 MG/ML VIAL IVP SCH ×5 (00:15→23:34)
[2017-07-23 04:41] LABS: Basophils # 0.1 K/mcL (0.0-0.2); Basophils % 0.9 %; Eosinophils # 0.3 K/mcL (0.0-0.6); Eosinophils % 2.8 %; Hematocrit 31.8 % (37.5-50.1); Hemoglobin 11.1 g/dL (12.9-16.9); Immature Granulocytes % 0.1 % (0-4); Lymphocytes # 2.3 K/mcL (0.6-4.6); Mean Corpuscular HGB Conc 34.9 g/dL (31.6-35.5); Mean Corpuscular Hemoglobin 31.3 pg (28.0-33.3); Mean Corpuscular Volume 89.6 fL (83.0-100.0); Mean Platelet Volume 9.9 fL (9.4-12.4); Monocytes # 1.1 K/mcL (0.0-1.3); Monocytes % 12.6 %; Neutrophils # 5.3 K/mcL (1.6-8.9); Platelet Count 450 K/mcL (140-400); Red Blood Count 3.55 M/mcL (4.19-5.50); Red Cell Distribution Width 15.4 % (11.5-14.5); Segmented Neutrophils % 58.6 %
[2017-07-23 05:11] LABS: BUN/Creatinine Ratio 15 (6-26); Blood Urea Nitrogen 12 mg/dL (6-20); Calcium 8.8 mg/dL (8.6-10.3); Carbon Dioxide 24 mEq/L (23-29); Chloride 105 mEq/L (98-107); Glucose 147 mg/dL (70-105); Magnesium 2.1 mg/dL (1.6-2.6); Osmolality,Calculated 286 (280-300); Phosphorous 4.3 mg/dL (2.7-4.5); Sodium 137 mEq/L (136-145); Triglycerides 130 mg/dL (< 150); eGFR For African Americans > 60 (> 60); eGFR For Non-African Americans > 60 (> 60)
[2017-07-23] MEDS: *HR* Enoxaparin 40 MG/0.4 ML SYRINGE SQ SCH (05:16)
[2017-07-23] MEDS: Levothyroxine Sodium 100 MCG VIAL IVP SCH (10:11)
[2017-07-23] MEDS: Pantoprazole 40 MG VIAL IVP SCH (10:11)
[2017-07-23] MEDS: Insulin LISPRO 300 UNITS/3 ML VIAL SQ SCH ×4 (10:11→20:24)
[2017-07-23] MEDS: (Roflumilast [Daliresp] 500 MCG) PO SCH (10:12)
[2017-07-23] MEDS: Fluticasone Propionate Nasal 50 MCG/SPRAY BOTTLE NS SCH (10:12)
--- NOTE | 2017-07-23 14:46 | General Surgery Progress Note ---
<Maricruz Gonzales Power - Last Filed: 07/23/17 14:48> Date of Encounter: 07/23/17 Time of Encounter: 14:00 - Assessment and Plan (1) Abdominal pain Current Visit: Yes Status: Resolved POD #21 from a cholecystectomy and cholangiogram and right hemicolectomy with Dr. Brunner Presented to the ED 2 days ago with increasing abdominal pain and fevers CT was concerning for anastomotic leak- Dr. Brunner personally reviewed CT and feels that findings are compatible with post-operative inflammation Continue clear liquids only Patient refuses protein supplements due to high sugar content Continue TPN therapy Management per supervisor lime IV antibiotics- Zosyn (day #2) Supportive care and pain control PPI therapy daily IS every 1 hour while awake Serial abdominal exams Incease activity- ambulate hallways TID with assistance Qualifiers: Abdominal location: generalized Qualified Code(s): R10.84 - Generalized abdominal pain (2) HTN (hypertension) Current Visit: No Status: Chronic Normotensive at this time Metoprolol prn for hypertension Qualifiers: Hypertension type: essential hypertension Qualified Code(s): I10 - Essential (primary) hypertension (3) Hypothyroid Current Visit: No Status: Chronic Resume home dose of synthroid Qualifiers: Hypothyroidism type: unspecified Qualified Code(s): E03.9 - Hypothyroidism , unspecified (4) COPD (chronic obstructive pulmonary disease) Current Visit: No Status: Chronic Resume home medication regimen Duonebs prn for shortness of breath or wheezing IS every 1 hour while awake Qualifiers: COPD type: unspecified COPD Qualified Code(s): J44.9 - Chronic obstructive pulmonary disease, unspecified (5) Fever Current Visit: Yes Status: Resolved Resolved IV antiibotics- Zosyn (day #2) Qualifiers: Fever type: unspecified Qualified Code(s): R50.9 - Fever, unspecified (6) Diabetes mellitus Current Visit: Yes Status: Chronic Well controlled at this time Continue current regimen Will continue to monitor and adjust as necessary Qualifiers: Diabetes mellitus type: type 2 Diabetes mellitus complication status: without complication Diabetes mellitus vermin exterminator insulin use: without vermin exterminator use Qualified Code(s): E11.9 - Type 2 diabetes mellitus without complications (7) DVT prophylaxis Current Visit: No Status: Acute Lovenox 40mg SQ daily for DVT prophylaxis EPCDs to bilateral lower extremities for DVT prophylaxis Ambulate hallways TID with assistance Subjective Patient reports: no new complaints, feels better, still having pain, pain is less, tolerating liquids well, voiding w/o difficulty, flatus, no bowel movement , afebrile Objective Vital Signs - Last 8 Hours Temp Pulse Resp BP Pulse Ox 07/23/17 14:08 98.3 F 88 16 116/72 96 07/23/17 11:24 98.2 F 87 14 107/67 97 Intake and Output 07/22/17 07/23/17 07/23/17 23:59 07:59 15:59 Intake Total 460 / 460 350 / 350 1020 / 1020 Output Total 500 / 500 825 / 825 200 / 200 Balance -40 / -40 -475 / -475 820 / 820 Intake: IV Fluids 100 / 100 350 / 350 Intralipid 20% 250 ML @ 21 mls/ 250 / 250 hr IVPB DAILY@1700 [facility] Rx#: [id number] Zosyn 3.375 GM In 0.9 % Sodium 100 / 100 100 / 100 Chloride 100 ML @ 25 mls/hr IVPB Q8HR [facility] Rx#:[id number] Oral 360 / 360 0 / 0 1020 / 1020 Output: Urine 500 / 500 825 / 825 200 / 200 Other: Percent of Meal Consumed 0% Blood Glucose* 141 102 - General physical appearance well developed, well nourished, no distress, no pain - Eyes normal ocular movement - ENT normal mucosa, atraumatic, normocephalic - Neck Neck exam: trachea midline - Respiratory normal expansion, normal respiratory effort, clear to auscultation - Cardiovascular Cardiovascular exam: Present: RRR - Abdomen Abdomen: Present: bowel sounds present, soft, non tender - Incision Incision: Present: clean and dry, intact - Integumentary no rash, no growths, no abnormal pigmentation - Neurologic CN 2-12 grossly intact - Musculoskeletal normal gait, normal posture - Psychiatric oriented to time, oriented to person, oriented to place, speech is normal, memory intact - Labs 07/23/17 04:20 07/23/17 04:20 Diabetes panel 07/23/17 Range/Units 04:20 Sodium 137 (136-145) mEq/L Potassium 4.0 (3.5-5.1) mEq/L Chloride 105 (98-107) mEq/L Carbon Dioxide 24 (23-29) mEq/L BUN 12 (6-20) mg/dL Creatinine 0.79 (0.70-1.30) mg/dL Glucose 147 H (70-105) mg/dL Calcium 8.8 (8.6-10.3) mg/dL Triglycerides 130 (< 150) mg/dL Calcium panel 07/23/17 Range/Units 04:20 Calcium 8.8 (8.6-10.3) mg/dL Phosphorus 4.3 (2.7-4.5) mg/dL Pituitary panel 07/23/17 Range/Units 04:20 Sodium 137 (136-145) mEq/L Potassium 4.0 (3.5-5.1) mEq/L Chloride 105 (98-107) mEq/L Carbon Dioxide 24 (23-29) mEq/L BUN 12 (6-20) mg/dL Creatinine 0.79 (0.70-1.30) mg/dL Glucose 147 H (70-105) mg/dL Calcium 8.8 (8.6-10.3) mg/dL Adrenal panel 07/23/17 Range/Units 04:20 Sodium 137 (136-145) mEq/L Potassium 4.0 (3.5-5.1) mEq/L Chloride 105 (98-107) mEq/L Carbon Dioxide 24 (23-29) mEq/L BUN 12 (6-20) mg/dL Creatinine 0.79 (0.70-1.30) mg/dL Glucose 147 H (70-105) mg/dL Calcium 8.8 (8.6-10.3) mg/dL Consult Discharge Plan - Plan Referrals: Artemio Briggs DO [Primary Care Provider] - - Attending Attestation For this encounter, I have reviewed the OFFICE CASHIER or PA documentation, treatment plan, and medical decision making; and I have had face to face time with this patient. <Haris Brunner - Last Filed: 07/24/17 12:19> Date of Encounter: 07/23/17 Objective Vital Signs - Last 8 Hours Temp Pulse Resp BP Pulse Ox 07/24/17 11:23 99.6 F 96 18 160/81 97 07/24/17 08:23 98.8 F 84 14 147/82 95 Intake and Output 07/23/17 07/24/17 07/24/17 23:59 07:59 15:59 Intake Total 620 / 620 1100 / 1100 0 / 0 Output Total 0 / 0 600 / 600 350 / 350 Balance 620 / 620 500 / 500 -350 / -350 Intake: IV Fluids 100 / 100 1100 / 1100 0.9 % Sodium Chloride 1,000 ML 1000 / 1000 @ 100 mls/hr IVC .Q10H [facility] Rx#: [id number] Zosyn 3.375 GM In 0.9 % Sodium 100 / 100 100 / 100 Chloride 100 ML @ 25 mls/hr IVPB Q8HR [facility] Rx#:[id number] Oral 520 / 520 0 / 0 0 / 0 Output: Urine 0 / 0 600 / 600 350 / 350 Other: Meal Clears Blood Glucose* 137 138 155 - Labs 07/23/17 04:20 07/24/17 04:11 Diabetes panel 07/24/17 Range/Units 04:11 Sodium 140 (136-145) mEq/L Potassium 3.9 (3.5-5.1) mEq/L Chloride 109 H (98-107) mEq/L Carbon Dioxide 24 (23-29) mEq/L BUN 9 (6-20) mg/dL Creatinine 0.73 (0.70-1.30) mg/dL Glucose 153 H (70-105) mg/dL Calcium 8.6 (8.6-10.3) mg/dL Calcium panel 07/24/17 Range/Units 04:11 Calcium 8.6 (8.6-10.3) mg/dL Phosphorus 3.5 (2.7-4.5) mg/dL Pituitary panel 07/24/17 Range/Units 04:11 Sodium 140 (136-145) mEq/L Potassium 3.9 (3.5-5.1) mEq/L Chloride 109 H (98-107) mEq/L Carbon Dioxide 24 (23-29) mEq/L BUN 9 (6-20) mg/dL Creatinine 0.73 (0.70-1.30) mg/dL Glucose 153 H (70-105) mg/dL Calcium 8.6 (8.6-10.3) mg/dL Adrenal panel 07/24/17 Range/Units 04:11 Sodium 140 (136-145) mEq/L Potassium 3.9 (3.5-5.1) mEq/L Chloride 109 H (98-107) mEq/L Carbon Dioxide 24 (23-29) mEq/L BUN 9 (6-20) mg/dL Creatinine 0.73 (0.70-1.30) mg/dL Glucose 153 H (70-105) mg/dL Calcium 8.6 (8.6-10.3) mg/dL - Attending Attestation The patient is seen and evaluated on rounds discussed the clinical nurse practitioner. His abdominal pain is improved. My review the CAT scan is not suspicious for disruption of the anastomosis. I believe that the inflammatory changes or residual from his original subhepatic abscess. Continue IV antibiotic therapy Haris Brunner MD FACS
[2017-07-23] MEDS ORDERED: Clinimix E 5%-20% SOLUTION 2,000 ML with MVI, adult with vitamin K 10 ML IVC SCH (17:00)
[2017-07-24] MEDS: 0.9 % Sodium Chloride 1,000 ML IVC SCH (03:26)
[2017-07-24 04:49] LABS: BUN/Creatinine Ratio 12 (6-26); Blood Urea Nitrogen 9 mg/dL (6-20); Calcium 8.6 mg/dL (8.6-10.3); Carbon Dioxide 24 mEq/L (23-29); Chloride 109 mEq/L (98-107); Glucose 153 mg/dL (70-105); Magnesium 2.1 mg/dL (1.6-2.6); Osmolality,Calculated 292 (280-300); Phosphorous 3.5 mg/dL (2.7-4.5); Potassium 3.9 mEq/L (3.5-5.1); Sodium 140 mEq/L (136-145); eGFR For African Americans > 60 (> 60); eGFR For Non-African Americans > 60 (> 60)
[2017-07-24] MEDS: *HR* Enoxaparin 40 MG/0.4 ML SYRINGE SQ SCH (06:02)
[2017-07-24] MEDS: Ketorolac 15 MG/ML VIAL IVP SCH ×3 (06:02→17:56)
[2017-07-24] MEDS: traMADol 50 MG TABLET PO PRN ×3 (06:02→18:00)
[2017-07-24] MEDS: (Roflumilast [Daliresp] 500 MCG) PO SCH (09:00)
[2017-07-24] MEDS: Pantoprazole 40 MG VIAL IVP SCH (10:24)
[2017-07-24] MEDS: Levothyroxine Sodium 100 MCG VIAL IVP SCH (10:24)
[2017-07-24] MEDS: carBAMazepine 200 MG TABLET PO SCH ×2 (10:25→17:56)
[2017-07-24] MEDS: Insulin LISPRO 300 UNITS/3 ML VIAL SQ SCH ×4 (10:25→21:37)
[2017-07-24] MEDS: Fluticasone Propionate Nasal 50 MCG/SPRAY BOTTLE NS SCH (10:45)
--- NOTE | 2017-07-24 13:04 | General Surgery Progress Note ---
Date of Encounter: 07/24/17 Time of Encounter: 13:00 - Assessment and Plan (1) Abdominal pain Current Visit: Yes Status: Resolved POD #22 from a cholecystectomy and cholangiogram and right hemicolectomy with Dr. Brunner Presented to the ED 3 days ago with increasing abdominal pain and fevers CT was concerning for anastomotic leak- Dr. Brunner personally reviewed CT and feels that findings are compatible with post-operative inflammation Advance to full liquids with protein supplements Patient refuses protein supplements due to high sugar content Decrease TPN to 50ml/hour and then d/c at 1700 IV antibiotics- Zosyn (day #3) Supportive care and pain control PPI therapy daily IS every 1 hour while awake Serial abdominal exams Incease activity- ambulate hallways TID with assistance Qualifiers: Abdominal location: generalized Qualified Code(s): R10.84 - Generalized abdominal pain (2) HTN (hypertension) Current Visit: No Status: Chronic Resume home medication regimen Metoprolol prn for hypertension Qualifiers: Hypertension type: essential hypertension Qualified Code(s): I10 - Essential (primary) hypertension (3) Hypothyroid Current Visit: No Status: Chronic Resume home dose of synthroid Qualifiers: Hypothyroidism type: unspecified Qualified Code(s): E03.9 - Hypothyroidism , unspecified (4) COPD (chronic obstructive pulmonary disease) Current Visit: No Status: Chronic Resume home medication regimen Duonebs prn for shortness of breath or wheezing IS every 1 hour while awake Qualifiers: COPD type: unspecified COPD Qualified Code(s): J44.9 - Chronic obstructive pulmonary disease, unspecified (5) Fever Current Visit: Yes Status: Resolved Resolved IV antiibotics- Zosyn (day #3) Qualifiers: Fever type: unspecified Qualified Code(s): R50.9 - Fever, unspecified (6) Diabetes mellitus Current Visit: Yes Status: Chronic Well controlled at this time Continue current regimen Will continue to monitor and adjust as necessary Qualifiers: Diabetes mellitus type: type 2 Diabetes mellitus complication status: without complication Diabetes mellitus watermelon inspector insulin use: without [place] [facility] use Qualified Code(s): E11.9 - Type 2 diabetes mellitus without complications (7) DVT prophylaxis Current Visit: No Status: Acute Lovenox 40mg SQ daily for DVT prophylaxis EPCDs to bilateral lower extremities for DVT prophylaxis Ambulate hallways TID with assistance Objective Vital Signs - Last 8 Hours Temp Pulse Resp BP Pulse Ox 07/24/17 11:23 99.6 F 96 18 160/81 97 07/24/17 08:23 98.8 F 84 14 147/82 95 Intake and Output 07/23/17 07/24/17 07/24/17 23:59 07:59 15:59 Intake Total 620 / 620 1100 / 1100 0 / 0 Output Total 0 / 0 600 / 600 350 / 350 Balance 620 / 620 500 / 500 -350 / -350 Intake: IV Fluids 100 / 100 1100 / 1100 0.9 % Sodium Chloride 1,000 ML 1000 / 1000 @ 100 mls/hr IVC .Q10H [facility] Rx#: [id number] Zosyn 3.375 GM In 0.9 % Sodium 100 / 100 100 / 100 Chloride 100 ML @ 25 mls/hr IVPB Q8HR [facility] Rx#:[id number] Oral 520 / 520 0 / 0 0 / 0 Output: Urine 0 / 0 600 / 600 350 / 350 Other: Meal Clears Blood Glucose* 137 138 98 - Labs 07/23/17 04:20 07/24/17 04:11 Diabetes panel 07/24/17 Range/Units 04:11 Sodium 140 (136-145) mEq/L Potassium 3.9 (3.5-5.1) mEq/L Chloride 109 H (98-107) mEq/L Carbon Dioxide 24 (23-29) mEq/L BUN 9 (6-20) mg/dL Creatinine 0.73 (0.70-1.30) mg/dL Glucose 153 H (70-105) mg/dL Calcium 8.6 (8.6-10.3) mg/dL Calcium panel 07/24/17 Range/Units 04:11 Calcium 8.6 (8.6-10.3) mg/dL Phosphorus 3.5 (2.7-4.5) mg/dL Pituitary panel 07/24/17 Range/Units 04:11 Sodium 140 (136-145) mEq/L Potassium 3.9 (3.5-5.1) mEq/L Chloride 109 H (98-107) mEq/L Carbon Dioxide 24 (23-29) mEq/L BUN 9 (6-20) mg/dL Creatinine 0.73 (0.70-1.30) mg/dL Glucose 153 H (70-105) mg/dL Calcium 8.6 (8.6-10.3) mg/dL Adrenal panel 07/24/17 Range/Units 04:11 Sodium 140 (136-145) mEq/L Potassium 3.9 (3.5-5.1) mEq/L Chloride 109 H (98-107) mEq/L Carbon Dioxide 24 (23-29) mEq/L BUN 9 (6-20) mg/dL Creatinine 0.73 (0.70-1.30) mg/dL Glucose 153 H (70-105) mg/dL Calcium 8.6 (8.6-10.3) mg/dL Consult Discharge Plan - Plan Referrals: Artemio Briggs DO [Primary Care Provider] -
--- NOTE | 2017-07-24 14:11 | Discharge Summary ---
<Maricruz Gonzales - Last Filed: 07/24/17 14:06> Date of Encounter: 07/24/17 Time of Encounter: 14:00 - Discharge Diagnosis (1) Abdominal pain Priority: Primary Status: Resolved Qualifiers: Abdominal location: generalized Qualified Code(s): R10.84 - Generalized abdominal pain (2) HTN (hypertension) Priority: Secondary Status: Chronic Qualifiers: Hypertension type: essential hypertension Qualified Code(s): I10 - Essential (primary) hypertension (3) Hypothyroid Priority: Secondary Status: Chronic Qualifiers: Hypothyroidism type: unspecified Qualified Code(s): E03.9 - Hypothyroidism , unspecified (4) COPD (chronic obstructive pulmonary disease) Priority: Secondary Status: Chronic Qualifiers: COPD type: unspecified COPD Qualified Code(s): J44.9 - Chronic obstructive pulmonary disease, unspecified (5) Fever Priority: Secondary Status: Resolved Qualifiers: Fever type: unspecified Qualified Code(s): R50.9 - Fever, unspecified (6) Diabetes mellitus Priority: Secondary Status: Chronic Qualifiers: Diabetes mellitus type: type 2 Diabetes mellitus complication status: without complication Diabetes mellitus jail insulin use: without computer terminal operator use Qualified Code(s): E11.9 - Type 2 diabetes mellitus without complications - Discharge Medications Prescriptions: Amoxicillin/Clavulanate [Augmentin] 875 mg PO BIDWM #20 tablet Home Medications: Cyclobenzaprine [Flexeril] 10 mg PO TID 01/28/15 [History] Fenofibrate 160 mg PO HS 01/28/15 [History] Levothyroxine Sodium [Synthroid] 75 mcg PO QAM 01/28/15 [History] Lisinopril [Zestril] 2.5 mg PO QAM 01/28/15 [History] Naproxen [Naprosyn] 500 mg PO BID 01/28/15 [History] Terazosin [Hytrin] 4 mg PO HS 01/28/15 [History] Testosterone Cypionate [Depo-Testosterone] 0.25 ml IM TH 01/28/15 [History] TraMADol [Ultram] 50 mg PO Q6HR PRN 01/28/15 [History] Albuterol Sulfate [Albuterol Inhaler] 2 puff IH Q4HR PRN 01/17/16 [History] Cholecalciferol (D-3) [Vitamin D] 2,000 unit PO DAILY 01/17/16 [History] Fish Oil/Dha/Epa [Fish Oil 1,200 mg Fish Oil] 1 each PO DAILY 01/17/16 [History] Fluticasone Propionate Nasal [Flonase] 1 spr NS DAILY 01/17/16 [History] Montelukast [Singulair] 10 mg PO HS 01/17/16 [History] Multivitamin [Multi-Day Vitamins] 1 each PO DAILY 01/17/16 [History] Omeprazole [PriLOSEC] 20 mg PO DAILY 01/17/16 [History] Tadalafil [Cialis] 20 mg PO AD PRN 01/17/16 [History] Umeclidinium Brm/Vilanterol Tr [Anoro Ellipta 62.5-25 Mcg INH] 1 puff IH DAILY 01/17/16 [History] Vitamin B Complex [B Complex] 1 each PO DAILY 01/17/16 [History] Diclofenac Sodium [Voltaren] 1 appl TP QID 07/02/17 [History] Roflumilast [Daliresp] 500 mcg PO DAILY 07/02/17 [History] carBAMazepine [Tegretol] 200 mg PO Q8HR 07/02/17 [History] Chloraseptic [place] [Chloraseptic] 2 spray MM Q4HR bottle 07/08/17 [Rx] Docusate [Colace] 100 mg PO BID #20 capsule 07/08/17 [Rx] OxyCODONE/APAP 10/325 [Percocet 10/325 MG] 1 each PO Q6HR PRN #28 tablet [Rx] metFORMIN [Glucophage] 500 mg PO BIDWM 07/22/17 [History] Amoxicillin/Clavulanate [Augmentin] 875 mg PO BIDWM #20 tablet 07/24/17 [Rx] Allergies/Adverse Reactions: 3 Allergy/AdvReac Type Severity Reaction Status Date / Time phenytoin [From Dilantin] Allergy Hives Verified 07/22/17 13:35 Sulfa (Sulfonamide Allergy Hives Verified 07/22/17 13:35 Antibiotics) General Surgery Exam Initial Vital Signs Temp Pulse Resp BP Pulse Ox 100.7 F H 128 18 105/64 95 07/21/17 17:19 07/21/17 17:19 07/21/17 17:19 07/21/17 17:19 07/21/17 17:19 - General physical appearance well developed, well nourished, no distress, no pain - Eyes normal ocular movement - ENT normal mucosa, atraumatic, normocephalic - Neck trachea midline - Respiratory normal respiratory effort, clear to auscultation - Cardiovascular Cardiovascular exam: Present: RRR - Abdomen Abdomen general surgery: Present: bowel sounds present, soft, non tender - Incision Incision: Present: clean and dry, intact (Ed[place] removed) - Integumentary Integumentary general surgery: Present: warm and dry - Neurologic Present: CN 2-12 grossly intact - Musculoskeletal Present: normal gait, normal posture - Psychiatric Psychiatric general surgery: Present: appropriate, oriented to person, oriented to place, oriented to time, speech is normal, memory intact Date of admission: 07/22/17 10:31 Primary care physician: Artemio Briggs DO Discharging clinician: Haris Brunner ([facility]) Anticipated date of discharge: 07/24/17 - Patient Status Disposition: Home, Self-Care Condition: Good Overall status at discharge: patient is progressing back to baseline - Discharge Instructions Follow Up With: Haris Brunner MD [Partnered Physician] - 08/04/17 10:10 am (hospital follow-up; symptomatic cholelithiasis) Judith Soriano CNP [Advanced Practice Nurse] - 07/28/17 3:20 pm Additional Instructions: #1 may shower, no tub bath for 2 weeks #2 wash incisions with soap and water and pat dry daily #3 no lifting, pushing, pulling more than 15 pounds for the next 2 weeks #4 no driving until off narcotics for 24 hours and able to safely react in the car #5 may climb stairs - Diet and Activity Activity: other (See additional instructions above) Diet: other (soft, chopped meat diet without roughage for 4 weeks) - Hospital Course Hospital course: Mr. López is a 57 year old male who is 3 weeks postop from a open cholecystectomy and right hemicolectomy. He had been discharged from the hospital and was recovering at home when he developed acute onset of abdominal pain. He also had fevers associated with the pain. He reported to the emergency department for evaluation and he had a CAT scan complete. The CAT scan shows inflammatory changes around the patient's anastomosis. He was admitted to the hospital under the care of Dr. Brunner and treated with conservative measures. Conservative measures including bowel rest, IV fluids, IV antibiotics, TPN therapy. The patient has significantly improved with these measures. He has been advanced to a full liquid diet and is tolerating this without nausea or vomiting or increasing abdominal pain. His TPN therapy has been weaned off. His vital signs are stable and he is afebrile. His white blood cell count has returned to normal. He has minimal abdominal discomfort. He is ambulating and voiding without difficulty. We will begin discharge to home and transition to oral antibiotics. We will plan for outpatient follow-up in 1-[address] Brunner. - Time Spent with Patient Total time spent providing and/or coordinating discharge services: Less than 30 minutes Labs on day of discharge: Labs from last 24 hours 07/24/17 07/24/17 07/24/17 12:39 08:23 04:15 Sodium Potassium Chloride Carbon Dioxide BUN Creatinine Est GFR ( Amer) Est GFR (Non-Af Amer) BUN/Creatinine Ratio Glucose POC Glucose 98 H 155 H 138 H Calculated Osmolality Calcium Phosphorus Magnesium 07/24/17 07/23/17 07/23/17 04:11 23:26 19:05 Sodium 140 Potassium 3.9 Chloride 109 H Carbon Dioxide 24 BUN 9 Creatinine 0.73 Est GFR ( Amer) > 60 Est GFR (Non-Af Amer) > 60 BUN/Creatinine Ratio 12 Glucose 153 H POC Glucose 173 H 137 H Calculated Osmolality 292 Calcium 8.6 Phosphorus 3.5 Magnesium 2.1 07/23/17 07/23/17 07/23/17 15:48 11:38 08:22 Sodium Potassium Chloride Carbon Dioxide BUN Creatinine Est GFR ( Amer) Est GFR (Non-Af Amer) BUN/Creatinine Ratio Glucose POC Glucose 142 H 102 H 159 H Calculated Osmolality Calcium Phosphorus Magnesium - Attending Attestation For this encounter, I have reviewed the BARREL LOADER or PA documentation, treatment plan, and medical decision making; and I have had face to face time with this patient. <Haris Brunner - Last Filed: 07/25/17 12:42> Date of Encounter: 07/24/17 General Surgery Exam Initial Vital Signs Temp Pulse Resp BP Pulse Ox 100.7 F H 128 18 105/64 95 07/21/17 17:19 07/21/17 17:19 07/21/17 17:19 07/21/17 17:19 07/21/17 17:19 Date of admission: 07/22/17 10:31 Primary care physician: Artemio Briggs DO - Hospital Course Hospital course: Mr. López is a 57 year old male - Time Spent with Patient Total time spent providing and/or coordinating discharge services: Labs on day of discharge: Labs from last 24 hours 07/25/17 07/25/17 07/24/17 12:13 08:05 16:18 POC Glucose 99 H 164 H 142 H 07/24/17 12:39 POC Glucose 98 H - Attending Attestation The patient was seen and evaluated on morning rounds. He should be ready for discharge later today if he remains afebrile. He will need home oral antibiotics and narcotic pain medicine. I will see him in follow-up in the office in one week. Haris Brunner MD FACS
[2017-07-24] MEDS ORDERED: Fenofibrate 54 MG TABLET PO SCH (21:00)
[2017-07-25] MEDS: traMADol 50 MG TABLET PO PRN ×3 (00:27→12:15)
[2017-07-25] MEDS: carBAMazepine 200 MG TABLET PO SCH ×2 (00:28→08:09)
[2017-07-25] MEDS: *HR* Enoxaparin 40 MG/0.4 ML SYRINGE SQ SCH (05:53)
[2017-07-25] MEDS: Insulin LISPRO 300 UNITS/3 ML VIAL SQ SCH ×2 (08:08→12:16)
[2017-07-25] MEDS: (Roflumilast [Daliresp] 500 MCG) PO SCH (08:11)
[2017-07-25] MEDS: Fluticasone Propionate Nasal 50 MCG/SPRAY BOTTLE NS SCH (08:14)
[2017-07-25] MEDS ORDERED: (Fish Oil/Dha/Epa [Fish Oil 1,200 Mg Fish Oil] 1 EACH PO SCH (09:00)
--- NOTE | 2017-07-25 11:30 | Event Note ---
Date of Encounter: 07/25/17 Time of Encounter: 11:26 S: - No acute events overnight. O: Pt examined by Haris Brunner MD and findings dictated as stated below: Vital Signs/O2 Sat/Glucose, Most Current Temp Pulse Resp BP Pulse Ox 07/25/17 08:11 98.5 F 96 18 141/70 97 No acute distress Normoactive bowel sounds. Midline Incision is healing well A/P Pt stable for d/c Will d/c with Antibiotics Amoxicillin/Clavulanate [Augmentin] 875 mg PO BIDWM #20 tablet
[2017-07-25 12:19] VITALS: BP 131/69
== END 2017-07-25 13:30 | disposition home or self-care (01) | DRG 395 ==
LOC: EMEROO 17:08 → 3ANU 17:08
PROVIDERS: ADMIT Surgery; ATTEND Surgery

== ENCOUNTER 2017-07-31 17:44 | Inpatient (IN) ==
[2017-07-31] MEDS ORDERED: *HR* LORazepam 2 MG/ML VIAL IVP ONE (21:42)
[2017-07-31] MEDS ORDERED: Ipratropium/Albuterol Neb 3 ML IH ONE (21:42)
[2017-07-31 22:27] LABS: Basophils # 0.1 K/mcL (0.0-0.2); Basophils % 0.6 %; Eosinophils # 0.3 K/mcL (0.0-0.6); Eosinophils % 1.9 %; Hematocrit 31.4 % (37.5-50.1); Hemoglobin 10.9 g/dL (12.9-16.9); Immature Granulocytes % 0.4 % (0-4); Lymphocytes # 3.2 K/mcL (0.6-4.6); Mean Corpuscular HGB Conc 34.7 g/dL (31.6-35.5); Mean Corpuscular Hemoglobin 29.5 pg (28.0-33.3); Mean Corpuscular Volume 85.1 fL (83.0-100.0); Mean Platelet Volume 9.7 fL (9.4-12.4); Monocytes % 12.3 %; Neutrophils # 10.9 K/mcL (1.6-8.9); Platelet Count 544 K/mcL (140-400); Red Blood Count 3.69 M/mcL (4.19-5.50); Red Cell Distribution Width 14.2 % (11.5-14.5); Segmented Neutrophils % 65.8 %
[2017-07-31 22:41] LABS: BUN/Creatinine Ratio 12 (6-26); Blood Urea Nitrogen 9 mg/dL (6-20); Calcium 9.1 mg/dL (8.6-10.3); Carbon Dioxide 23 mEq/L (23-29); Chloride 95 mEq/L (98-107); Glucose 134 mg/dL (70-105); Osmolality,Calculated 265 (280-300); Potassium 3.5 mEq/L (3.5-5.1); Sodium 127 mEq/L (136-145); eGFR For African Americans > 60 (> 60); eGFR For Non-African Americans > 60 (> 60)
[2017-07-31] MEDS ORDERED: MetroNIDAZOLE 500 MG/100 ML 500 MG/100 ML BAG IVPB ONE (23:32)
[2017-08-01] MEDS ORDERED: Piperacillin/Tazobactam 3.375 GM in Water for inj. (sterile) 20 ML IVP ONE (00:09)
[2017-08-01] MEDS ORDERED: Vancomycin 1,250 MG in D5% in Water 250 ML IVPB ONE (00:10)
--- NOTE | 2017-08-01 00:16 | Emergency Department Note ---
Disposition Clinical Impression: Intra-abdominal collection Disposition: Admitted As Inpatient Condition: Undetermined Referrals: Artemio Briggs DO [Primary Care Provider] - General Adult HPI - General Chief complaint: ED Fever Stated complaint: Fever Time Seen by Provider: 07/31/17 21:29 Source: patient, family Limitations: no limitations Nursing Notes Reviewed: Yes Vital Signs Reviewed: Yes - History of Present Illness HPI Narrative: This is a 57-year-old male status post cholecystectomy and repair of an true clonic fistula with subsequent anastomotic leak and treatment with bowel rest and antibiotics who was sent in for treatment of possible infection. The patient was having night sweats and fever at home. He has COPD and is on home oxygen. He presents with concern for intra-abdominal infection. General: No acute distress HEENT: Pupils equal and reactive to light, extraoccular muscle movement is normal, TMS are clear bilaterally. Heart: RRR, No murmor rub or gallop Lungs: lungs clear, no wheezing, rales or ronchi. ABD: SNT, no focal areas or tenderness, no guarding or rebound tenderness. Extremities: No cyanosis, clubbing or edema Neuro: CN 2-12 in tact, no focal deficit. strength 5/5. There is a midline surgical incision. Non-peritoneal abdominal exam. Medical decision making I discussed case with Dr. Aranda. He is on-call for general surgery. Patient will be admitted to the medicine service. We will start antibiotic therapy. I did start Cipro Flagyl. I did modify antibiotic choice to Zosyn, vancomycin to common a for possible pulmonary etiologies as well as intra-abdominal pathology. Patient will be admitted to the hospitalist service. Pancultures were obtained. Patient was stable at time of admission. Pain Scale: 0 - Related Data Home Medications Medication Instructions Recorded Confirmed Cyclobenzaprine [Flexeril] 10 mg PO TID 01/28/15 07/22/17 Fenofibrate 160 mg PO HS 01/28/15 07/22/17 Levothyroxine Sodium [Synthroid] 75 mcg PO QAM 01/28/15 07/22/17 Lisinopril [Zestril] 2.5 mg PO QAM 01/28/15 07/22/17 Naproxen [Naprosyn] 500 mg PO BID 01/28/15 07/22/17 Terazosin [Hytrin] 4 mg PO HS 01/28/15 07/22/17 Testosterone Cypionate 0.25 ml IM TH 01/28/15 07/22/17 [Depo-Testosterone] TraMADol [Ultram] 50 mg PO Q6HR PRN 01/28/15 07/22/17 Albuterol Sulfate [Albuterol 2 puff IH Q4HR PRN 01/17/16 07/22/17 Inhaler] Cholecalciferol (D-3) [Vitamin D] 2,000 unit PO DAILY 01/17/16 07/22/17 Fish Oil/Dha/Epa [Fish Oil 1,200 1 each PO DAILY 01/17/16 07/22/17 mg Fish Oil] Fluticasone Propionate Nasal 1 spr NS DAILY 01/17/16 07/22/17 [Flonase] Montelukast [Singulair] 10 mg PO HS 01/17/16 07/22/17 Multivitamin [Multi-Day Vitamins] 1 each PO DAILY 01/17/16 07/22/17 Omeprazole [PriLOSEC] 20 mg PO DAILY 01/17/16 07/22/17 Tadalafil [Cialis] 20 mg PO AD PRN 01/17/16 07/22/17 Umeclidinium Brm/Vilanterol Tr 1 puff IH DAILY 01/17/16 07/22/17 [Anoro Ellipta 62.5-25 Mcg INH] Vitamin B Complex [B Complex] 1 each PO DAILY 01/17/16 07/22/17 Diclofenac Sodium [Voltaren] 1 appl TP QID 07/02/17 07/22/17 Roflumilast [Daliresp] 500 mcg PO DAILY 07/02/17 07/22/17 carBAMazepine [Tegretol] 200 mg PO Q8HR 07/02/17 07/22/17 metFORMIN [Glucophage] 500 mg PO BIDWM 07/22/17 07/22/17 Previous Rx's Medication Instructions Recorded Chloraseptic [place] [Chloraseptic] 2 spray MM Q4HR bottle 07/08/17 Docusate [Colace] 100 mg PO BID #20 capsule 07/08/17 OxyCODONE/APAP 10/325 [Percocet 1 each PO Q6HR PRN #28 tablet 07/08/17 10/325 MG] Amoxicillin/Clavulanate [Augmentin] 875 mg PO BIDWM #20 tablet 07/24/17 Allergies Allergy/AdvReac Type Severity Reaction Status Date / Time phenytoin [From Dilantin] Allergy Hives Verified 07/22/17 13:35 Sulfa (Sulfonamide Allergy Hives Verified 07/22/17 13:35 Antibiotics) All systems ED: reviewed and negative except as stated. Review of Systems: As Per HPI Past Medical History - Past Medical History Medical history: Reports: arthritis, COPD, GERD, hypertension, thyroid disease, other Surgical history: Reports: splenectomy, vasectomy, other Psychiatric history: Reports: no psych history - Social History Smoking Status: Former smoker Smokeless Tobacco Status: No Alcohol use: Reports: occasionally Drug use: Reports: none Physical Exam - General Limitations: no limitations General appearance: alert, in no apparent distress Course Vital Signs Temperature 98.9 F 07/31/17 17:46 Pulse Rate 109 07/31/17 17:46 Respiratory Rate 18 07/31/17 17:46 Blood Pressure 123/78 07/31/17 17:46 O2 Sat by Pulse Oximetry 92 07/31/17 17:46 Temperature 98.9 F 07/31/17 17:46 Pulse Rate 94 07/31/17 23:45 Respiratory Rate 16 07/31/17 23:45 Blood Pressure 110/58 07/31/17 23:45 O2 Sat by Pulse Oximetry 97 07/31/17 23:45 Oxygen Delivery Oxygen Delivery Nasal Cannula Medical Decision Making - Lab Data Result diagrams: 07/31/17 22:15 07/31/17 22:15 Lab Results 07/31/17 07/31/17 07/31/17 Range/Units 22:15 22:15 22:15 WBC 16.6 H (4.3-11.1) K/mcL RBC 3.69 L (4.19-5.50) M/mcL Hgb 10.9 L (12.9-16.9) g/dL Hct 31.4 L (37.5-50.1) % MCV 85.1 (83.0-100.0) fL MCH 29.5 (28.0-33.3) pg MCHC 34.7 (31.6-35.5) g/dL RDW 14.2 (11.5-14.5) % Plt Count 544 H (140-400) K/mcL MPV 9.7 (9.4-12.4) fL Immature Gran % 0.4 (0-4) % Seg Neutrophils % 65.8 % Lymphocytes % 19.0 % Monocytes % 12.3 % Eosinophils % 1.9 % Basophils % 0.6 % Neutrophils # 10.9 H (1.6-8.9) K/mcL Lymphocytes # 3.2 (0.6-4.6) K/mcL Monocytes # 2.0 H (0.0-1.3) K/mcL Eosinophils # 0.3 (0.0-0.6) K/mcL Basophils # 0.1 (0.0-0.2) K/mcL Sodium 127 L (136-145) mEq/L Potassium 3.5 (3.5-5.1) mEq/L Chloride 95 L (98-107) mEq/L Carbon Dioxide 23 (23-29) mEq/L BUN 9 (6-20) mg/dL Creatinine 0.78 (0.70-1.30) mg/dL Est GFR ( Amer) > 60 (> 60) Est GFR (Non-Af Amer) > 60 (> 60) BUN/Creatinine Ratio 12 (6-26) Glucose 134 H (70-105) mg/dL Calculated Osmolality 265 L (280-300) Lactic Acid 1.0 (0.5-2.2) mmol/L Calcium 9.1 (8.6-10.3) mg/dL
[2017-08-01 00:48] LABS: Bilirubin,Urine Negative (Negative); Blood,Urine Negative (Negative); Clarity,Urine Clear (Clear); Color,Urine Yellow (Yellow); Glucose,Urine (UA) Normal (Normal); Ketones,Urine Negative (Negative); Leukocyte Esterase,Urine Negative (Negative); Nitrite,Urine Negative (Negative); Protein,Urine Negative (Neg-Trace); Specific Gravity,Urine > 1.030 (1.010-1.025); Urobilinogen,Urine Normal (Normal)
[2017-08-01] MEDS ORDERED: Naloxone 0.4 MG/ML INJ IVP PRN (02:16)
[2017-08-01] MEDS ORDERED: *HR* FentaNYL (PF) 100 MCG/2 ML VIAL IVP PRN (02:19)
[2017-08-01] MEDS ORDERED: traZODone 50 MG TABLET PO PRN (02:20)
[2017-08-01] MEDS ORDERED: Melatonin 3 MG TABLET PO PRN (02:20)
[2017-08-01] MEDS ORDERED: Ipratropium/Albuterol Neb 3 ML IH PRN (02:23)
--- NOTE | 2017-08-01 02:25 | Internal Med History&Physical ---
Date of Encounter: 08/01/17 Time of Encounter: 02:22 Assessment and Plan (1) Intra-abdominal collection Current visit: Yes Status: Acute NPO IVF blood cx pend consult surgery for further management SIRs present and will treat with antibiotics (2) Anastomotic leak of intestine Current visit: No Status: Acute management as above (3) PNA (pneumonia) Current visit: Yes Status: Acute incentive spirometry IV vanc and zosyn IVF Qualifiers: Lung location: middle lobe of lung Qualified Code(s): J18.1 - Lobar pneumonia, unspecified organism (4) COPD (chronic obstructive pulmonary disease) Current visit: No Status: Chronic Qualifiers: COPD type: chronic bronchitis Chronic bronchitis type: simple Qualified Code(s): J41.0 - Simple chronic bronchitis (5) Diabetes mellitus Current visit: No Status: Chronic hold metformin, CBG for now, Qualifiers: Diabetes mellitus complication status: without complication Qualified Code( s): E11.9 - Type 2 diabetes mellitus without complications (6) HTN (hypertension) Current visit: No Status: Chronic Qualifiers: Hypertension type: essential hypertension Qualified Code(s): I10 - Essential (primary) hypertension (7) Hypothyroid Current visit: No Status: Chronic Qualifiers: Hypothyroidism type: acquired Qualified Code(s): E03.9 - Hypothyroidism, unspecified Internal Medicine - H&P: HPI Chief complaint: low grade fever from 99.6 and up to Tmax of 101.9 History of present illness: Mr. Lóepz is a 57 year old male who is approx 4 weeks postop from a open cholecystectomy and right hemicolectomy, FARIDEH drain in RUQ for subhepatic abscess 2/2 acute cholecystitis and an enteral colonic fistula. He had to reutrn on 07/22/17-07/24/17 for anastomotic leak that improved with conservative management of TPN and NPO. He was discharge on clears and PO augment. However, returning home, he has been experiencing low grade fever from 99.6 and up to Tmax of 101.9 that was associated with chills, drenching sweats - through the pillow,clothes. He has been taking liquid and clear broth and as a result, has 1 -3 x liquid stool daily. He has residual RLQ crampy pain, particularly on deep inspiration. Of note, he has a prior splenectomy and traumatic brain injury [place] CT/CT abd pelvis w iv no oral IMPRESSION: Status post cholecystectomy. Small amount of fluid within the gallbladder fossa and tracking along the edge of the liver, probably postsurgical. Biliary leak is considered unlikely but not excluded. Postsurgical changes of the lower right colon with anastomotic sutures. There is a multiloculated fluid collection containing gas adjacent to the anastomotic sutures. Name could represent an infectious process and/or an anastomotic leak. XR/XR chest 2V IMPRESSION: Middle lobe disease may represent pneumonia and/or atelectasis. Vertically oriented linear opacity in the medial right lower lobe, likely atelectasis. Past Med Surg Social Fam HX - Past Medical History Medical history: arthritis, COPD, GERD, hypertension, thyroid disease, other Psychiatric history: no psych history - Past Surgical History Surgical History: colectomy, orthopedic, other, splenectomy, vasectomy, other - Social History Smoking Status: Former smoker Smokeless Tobacco Status: No Alcohol use: occasionally Drug use: none - Family History Father Adopted: [place]: Will López Living Status: Age at : 73 Cause of : Complications from DM neuropathy Hx Family Endocrine Disorder: Yes (Diabetic) Hx Family Neuromuscular Disorders: Yes (Spinal surgeries) Internal Medicine - H&P: Meds Cyclobenzaprine [Flexeril] 10 mg PO TID 01/28/15 [History] Fenofibrate 160 mg PO HS 01/28/15 [History] Levothyroxine Sodium [Synthroid] 75 mcg PO QAM 01/28/15 [History] Lisinopril [Zestril] 2.5 mg PO QAM 01/28/15 [History] Terazosin [Hytrin] 4 mg PO HS 01/28/15 [History] Testosterone Cypionate [Depo-Testosterone] 0.25 ml IM TH 01/28/15 [History] TraMADol [Ultram] 50 mg PO Q6HR PRN 01/28/15 [History] Albuterol Sulfate [Albuterol Inhaler] 2 puff IH Q4HR PRN 01/17/16 [History] Cholecalciferol (D-3) [Vitamin D] 2,000 unit PO DAILY 01/17/16 [History] Fish Oil/Dha/Epa [Fish Oil 1,200 mg Fish Oil] 1 each PO DAILY 01/17/16 [History] Fluticasone Propionate Nasal [Flonase] 1 spr NS DAILY 01/17/16 [History] Montelukast [Singulair] 10 mg PO HS 01/17/16 [History] Multivitamin [Multi-Day Vitamins] 1 each PO DAILY 01/17/16 [History] Omeprazole [PriLOSEC] 20 mg PO DAILY 01/17/16 [History] Tadalafil [Cialis] 20 mg PO AD PRN 01/17/16 [History] Umeclidinium Brm/Vilanterol Tr [Anoro Ellipta 62.5-25 Mcg INH] 1 puff IH DAILY 01/17/16 [History] Vitamin B Complex [B Complex] 1 each PO DAILY 01/17/16 [History] Diclofenac Sodium [Voltaren] 1 appl TP QID 07/02/17 [History] Roflumilast [Daliresp] 500 mcg PO DAILY 07/02/17 [History] carBAMazepine [Tegretol] 200 mg PO Q8HR 07/02/17 [History] Chloraseptic [place] [Chloraseptic] 2 spray MM Q4HR bottle 07/08/17 [Rx] Docusate [Colace] 100 mg PO BID #20 capsule 07/08/17 [Rx] metFORMIN [Glucophage] 500 mg PO BIDWM 07/22/17 [History] Amoxicillin/Clavulanate [Augmentin] 875 mg PO BIDWM #20 tablet 07/24/17 [Rx] 3 Allergy/AdvReac Type Severity Reaction Status Date / Time phenytoin [From Dilantin] Allergy Hives Verified 07/22/17 13:35 Sulfa (Sulfonamide Allergy Hives Verified 07/22/17 13:35 Antibiotics) All Systems PM: A 10-system review of systems was performed and is negative for pertinent findings except as documented above in the HPI. Review of systems: ROS 14 point review of systems reviewed as best as possible given presentation. Pertinent positive or negative as per HPI or otherwise reviewed as negative - Constitutional Vitals: Temp Pulse Resp BP Pulse Ox 98.9 F 94 16 110/60 97 07/31/17 17:46 07/31/17 23:45 08/01/17 00:50 08/01/17 00:50 07/31/17 23:45 Exam: General - AAO x 3 Psych - Appropriate affect/speech. No agitation Eyes - APRIL. Eye lids intact. No scleral icterus Neuro - No gross peripheral or central neuro deficits on inspection Heart - Sinus. RRR. S1 and S2 present. No added HS/murmurs appreciated. No elevated JVD appreciated. Lung - Decreased air entry b/l, No crackles/wheezes appreciated due to decrease effort 2/2 to RLQ tenderness on deep inspiration GI - Midline abdo scar. RLQ tenderness, no ridigity, mild guarding. No hepatosplenomegaly/ascites. BS+ - No CVA/suprapubic tenderness or palpable bladder distension Skin - Intact. No rash/petechiae/ecchymosis. Warm extremities Internal Med - H&P Results - Labs CBC & Chem 7: 07/31/17 22:15 07/31/17 22:15 Labs: Urine 08/01/17 Range/Units 00:40 Urine Color Yellow (Yellow) Urine Clarity Clear (Clear) Urine pH 6.0 (5.0-8.0) pH Units Ur Specific [place] > 1.030 H (1.010-1.025) Urine Protein Negative (Neg-Trace) mg/dL Urine Glucose (UA) Normal (Normal) mg/dL
[2017-08-01] MEDS ORDERED: Ringers Solution, Lactated 1,000 ML IVC SCH (02:30)
[2017-08-01] MEDS: 0.9 % Sodium Chloride 1,000 ML IVC SCH ×2 (03:59→15:58)
[2017-08-01] MEDS ORDERED: D5% in Water 1,000 ML IVC PRN (04:16)
[2017-08-01] MEDS ORDERED: Dextrose Gel 15 GM/37.5 ML TUBE PO PRN ×2 (04:16)
[2017-08-01] MEDS ORDERED: *HR* Dextrose 50 % in Water (Syg) 50 ML SYRINGE IVP PRN (04:16)
[2017-08-01] MEDS: Ipratropium/Albuterol Neb 3 ML IH SCH ×4 (04:51→22:45)
[2017-08-01] MEDS: *HR* Enoxaparin 40 MG/0.4 ML SYRINGE SQ SCH (06:14)
[2017-08-01 06:33] LABS: Basophils # 0.1 K/mcL (0.0-0.2); Basophils % 0.8 %; Eosinophils # 0.4 K/mcL (0.0-0.6); Eosinophils % 2.8 %; Hematocrit 30.4 % (37.5-50.1); Hemoglobin 10.4 g/dL (12.9-16.9); Immature Granulocytes % 0.4 % (0-4); Lymphocytes # 2.4 K/mcL (0.6-4.6); Lymphocytes % 17.1 %; Mean Corpuscular HGB Conc 34.2 g/dL (31.6-35.5); Mean Corpuscular Volume 84.7 fL (83.0-100.0); Mean Platelet Volume 9.9 fL (9.4-12.4); Monocytes # 1.7 K/mcL (0.0-1.3); Monocytes % 12.3 %; Neutrophils # 9.3 K/mcL (1.6-8.9); Platelet Count 554 K/mcL (140-400); Red Blood Count 3.59 M/mcL (4.19-5.50); Segmented Neutrophils % 66.6 %
[2017-08-01 06:47] LABS: Alanine Aminotransferase 28 Units/L (7-52); Albumin 3.5 g/dL (3.5-5.7); Albumin/Globulin Ratio 1.1 (1.1-2.2); Alkaline Phosphatase 44 Units/L (34-104); Aspartate Amino Transferase 20 Units/L (13-39); BUN/Creatinine Ratio 10 (6-26); Bilirubin,Direct 0.2 mg/dL (0.0-0.2); Bilirubin,Indirect 0.4 mg/dL (0.0-1.2); Bilirubin,Total 0.6 mg/dL (0.3-1.0); Blood Urea Nitrogen 7 mg/dL (6-20); Carbon Dioxide 23 mEq/L (23-29); Chloride 102 mEq/L (98-107); Globulin 3.2 g/dL (2.4-3.5); Glucose 130 mg/dL (70-105); Magnesium 1.9 mg/dL (1.6-2.6); Osmolality,Calculated 278 (280-300); Potassium 3.6 mEq/L (3.5-5.1); Sodium 134 mEq/L (136-145); Total Protein 6.7 g/dL (6.4-8.9); eGFR For African Americans > 60 (> 60); eGFR For Non-African Americans > 60 (> 60)
[2017-08-01] MEDS ORDERED: VILANTEROL TR IH SCH (09:00)
[2017-08-01] MEDS ORDERED: UMECLIDINIUM BRM IH SCH (09:00)
[2017-08-01] MEDS: Insulin LISPRO 300 UNITS/3 ML VIAL SQ SCH ×3 (09:02→17:00)
[2017-08-01] MEDS: (Roflumilast [Daliresp] 500 MCG) PO SCH (09:02)
[2017-08-01] MEDS: carBAMazepine 200 MG TABLET PO SCH ×2 (09:03→15:57)
[2017-08-01] MEDS: Vancomycin 1,250 MG in D5% in Water 250 ML IVPB SCH (09:52)
--- NOTE | 2017-08-01 16:57 | General Surgery Consult Note ---
Date of Encounter: 08/01/17 Time of Encounter: 09:30 Assessment and Plan (1) Entero-colonic fistula Current Visit: No Status: Acute Plan for IV antibiotic therapy, bowel rest, and IV fluids. Patient may require drain placement. However we will try antibiotics if he does not significantly improve that is evaluation with another subsequent CT would be warranted. I have discussed the case with Dr. Brunner. 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 Patient's been experiencing fevers at home. He also had increasing abdominal pain with distention. States been an ongoing issue for him since discharge approximately 10 days ago. He denies any significant appetite at this point. He does admit to intermittent fevers and chills. Rates his pain at a 9 out 10 W at its worst.) Past Med Surg Social Fam HX - Past Medical History Medical history: arthritis, COPD, GERD, hypertension, thyroid disease, other Psychiatric history: no psych history - Past Surgical History Surgical History: colectomy, orthopedic, other, splenectomy, vasectomy, other - Social History Smoking Status: Former smoker Smokeless Tobacco Status: No Alcohol use: occasionally Drug use: none - Family History Father Adopted: [place]: Will Myers Living Status: Age at : 73 Cause of : Complications from DM neuropathy Hx Family Endocrine Disorder: Yes (Diabetic) Hx Family Neuromuscular Disorders: Yes (Spinal surgeries) Medications and Allergies Cyclobenzaprine [Flexeril] 10 mg PO TID 01/28/15 [History] Fenofibrate 160 mg PO HS 01/28/15 [History] Levothyroxine Sodium [Synthroid] 75 mcg PO QAM 01/28/15 [History] Lisinopril [Zestril] 2.5 mg PO QAM 01/28/15 [History] Terazosin [Hytrin] 4 mg PO HS 01/28/15 [History] Testosterone Cypionate [Depo-Testosterone] 0.25 ml IM TH 01/28/15 [History] TraMADol [Ultram] 50 mg PO Q6HR PRN 01/28/15 [History] Albuterol Sulfate [Albuterol Inhaler] 2 puff IH Q4HR PRN 01/17/16 [History] Cholecalciferol (D-3) [Vitamin D] 2,000 unit PO DAILY 01/17/16 [History] Fish Oil/Dha/Epa [Fish Oil 1,200 mg Fish Oil] 1 each PO DAILY 01/17/16 [History] Fluticasone Propionate Nasal [Flonase] 1 spr NS DAILY 01/17/16 [History] Montelukast [Singulair] 10 mg PO HS 01/17/16 [History] Multivitamin [Multi-Day Vitamins] 1 each PO DAILY 01/17/16 [History] Omeprazole [PriLOSEC] 20 mg PO DAILY 01/17/16 [History] Tadalafil [Cialis] 20 mg PO AD PRN 01/17/16 [History] Umeclidinium Brm/Vilanterol Tr [Anoro Ellipta 62.5-25 Mcg INH] 1 puff IH DAILY 01/17/16 [History] Vitamin B Complex [B Complex] 1 each PO DAILY 01/17/16 [History] Diclofenac Sodium [Voltaren] 1 appl TP QID 07/02/17 [History] Roflumilast [Daliresp] 500 mcg PO DAILY 07/02/17 [History] carBAMazepine [Tegretol] 200 mg PO Q8HR 07/02/17 [History] Chloraseptic Girard [Chloraseptic] 2 spray MM Q4HR bottle 07/08/17 [Rx] Docusate [Colace] 100 mg PO BID #20 capsule 07/08/17 [Rx] metFORMIN [Glucophage] 500 mg PO BIDWM 07/22/17 [History] Amoxicillin/Clavulanate [Augmentin] 875 mg PO BIDWM #20 tablet 07/24/17 [Rx] 3 Allergy/AdvReac Type Severity Reaction Status Date / Time phenytoin [From Dilantin] Allergy Hives Verified 07/22/17 13:35 Sulfa (Sulfonamide Allergy Hives Verified 07/22/17 13:35 Antibiotics) Review of Systems All systems PM: reviewed and no additional remarkable complaints except as stated All systems PM: A 10-system review of systems was performed and is negative for pertinent findings except as documented above in the HPI. General Surgery Exam Initial Vital Signs Temp Pulse Resp BP Pulse Ox 98.9 F 109 18 123/78 92 07/31/17 17:46 07/31/17 17:46 07/31/17 17:46 07/31/17 17:46 07/31/17 17:46 - Eyes PERRL, normal ocular movement - Neck trachea midline - Respiratory normal expansion, normal respiratory effort - Cardiovascular Cardiovascular exam: Present: RRR - Abdomen Abdomen general surgery: Present: soft, tender Abdominal Tenderness: Present: RUQ, RLQ - Incision Incision: Present: intact - Integumentary Integumentary general surgery: Present: warm and dry, no abnormal pigmentation - Neurologic Present: CN 2-12 grossly intact, normal sensation - Musculoskeletal Present: normal gait, normal posture - Psychiatric Psychiatric general surgery: Present: A&Ox3, memory intact Exam Initial Vital Signs Temp Pulse Resp BP Pulse Ox 98.9 F 109 18 123/78 92 07/31/17 17:46 07/31/17 17:46 07/31/17 17:46 07/31/17 17:46 07/31/17 17:46 Results - Labs 08/01/17 06:11 08/01/17 06:11 Abnormal lab results WBC 13.9 K/mcL (4.3-11.1) H 08/01/17 06:11 RBC 3.59 M/mcL (4.19-5.50) L 08/01/17 06:11 Hgb 10.4 g/dL (12.9-16.9) L 08/01/17 06:11 Hct 30.4 % (37.5-50.1) L 08/01/17 06:11 Plt Count 554 K/mcL (140-400) H 08/01/17 06:11 Neutrophils # 9.3 K/mcL (1.6-8.9) H 08/01/17 06:11 Monocytes # 1.7 K/mcL (0.0-1.3) H 08/01/17 06:11 Sodium 134 mEq/L (136-145) L 08/01/17 06:11 Creatinine 0.68 mg/dL (0.70-1.30) L 08/01/17 06:11 Glucose 130 mg/dL (70-105) H 08/01/17 06:11 POC Glucose 164 (58-89) H 08/01/17 16:00 Calculated Osmolality 278 (280-300) L 08/01/17 06:[address] > 1.030 (1.010-1.025) H 08/01/17 00:40 Diabetes panel 08/01/17 Range/Units 06:11 Sodium 134 L (136-145) mEq/L Potassium 3.6 (3.5-5.1) mEq/L Chloride 102 (98-107) mEq/L Carbon Dioxide 23 (23-29) mEq/L BUN 7 (6-20) mg/dL Creatinine 0.68 L (0.70-1.30) mg/dL Glucose 130 H (70-105) mg/dL Calcium 9.0 (8.6-10.3) mg/dL AST 20 (13-39) Units/L ALT 28 (7-52) Units/L Alkaline Phosphatase 44 (34-104) Units/L Albumin 3.5 (3.5-5.7) g/dL Calcium panel 08/01/17 Range/Units 06:11 Calcium 9.0 (8.6-10.3) mg/dL Albumin 3.5 (3.5-5.7) g/dL Pituitary panel 08/01/17 Range/Units 06:11 Sodium 134 L (136-145) mEq/L Potassium 3.6 (3.5-5.1) mEq/L Chloride 102 (98-107) mEq/L Carbon Dioxide 23 (23-29) mEq/L BUN 7 (6-20) mg/dL Creatinine 0.68 L (0.70-1.30) mg/dL Glucose 130 H (70-105) mg/dL Calcium 9.0 (8.6-10.3) mg/dL Adrenal panel 08/01/17 Range/Units 06:11 Sodium 134 L (136-145) mEq/L Potassium 3.6 (3.5-5.1) mEq/L Chloride 102 (98-107) mEq/L Carbon Dioxide 23 (23-29) mEq/L BUN 7 (6-20) mg/dL Creatinine 0.68 L (0.70-1.30) mg/dL Glucose 130 H (70-105) mg/dL Calcium 9.0 (8.6-10.3) mg/dL Total Bilirubin 0.6 (0.3-1.0) mg/dL AST 20 (13-39) Units/L ALT 28 (7-52) Units/L Alkaline Phosphatase 44 (34-104) Units/L Albumin 3.5 (3.5-5.7) g/dL All other labs normal. - Imaging CT scan - abdomen: image reviewed CT scan - pelvis: image reviewed Consult Discharge Plan - Plan Referrals: Artemio Briggs, [Primary Care Provider] -
--- NOTE | 2017-08-01 17:39 | Event Note ---
Date of Encounter: 08/01/17 Time of Encounter: 12:20 57-year-old male with history of hypertension, diabetes, COPD, hypothyroidism, chronic pain with recent cholecystectomy, drainage of subsequent abscess and partial colectomy, admitted with persistent fevers and malaise. Repeat CT abdomen/pelvis done in the emergency room showed multiloculated fluid collection containing gas adjacent to the anastomotic sutures, could represent an infectious process or an anastomotic leak. Seen and examined at bedside. Reports low-grade fevers and chills, diaphoresis. Abdominal pain at surgical site. Abdomen-soft, nondistended, midline surgical incision well-healed, tenderness in central and right lower quadrant Intra-abdominal infection/suspected anastomotic leak-postoperative. Case discussed with surgery, agree with IV antibiotics for now. To decide drainage of the abscess versus continued IV antibiotics. Possibly repeat CT abdomen tomorrow. Continue bowel rest, IV hydration, supportive care with when necessary antiemetics, pain control with oral tramadol and Tylenol. Patient declines narcotic pain medications.
[2017-08-02] MEDS: traMADol 50 MG TABLET PO PRN ×5 (00:25→23:38)
[2017-08-02] MEDS: carBAMazepine 200 MG TABLET PO SCH ×4 (00:25→23:38)
[2017-08-02] MEDS: Ipratropium/Albuterol Neb 3 ML IH SCH ×4 (04:45→22:07)
[2017-08-02] MEDS: *HR* Enoxaparin 40 MG/0.4 ML SYRINGE SQ SCH (06:02)
[2017-08-02] MEDS: Vancomycin 1,250 MG in D5% in Water 250 ML IVPB SCH ×2 (06:03→18:48)
[2017-08-02 06:06] LABS: Basophils # 0.1 K/mcL (0.0-0.2); Basophils % 0.6 %; Eosinophils # 0.3 K/mcL (0.0-0.6); Hematocrit 30.7 % (37.5-50.1); Hemoglobin 10.6 g/dL (12.9-16.9); Immature Granulocytes % 0.4 % (0-4); Lymphocytes # 2.3 K/mcL (0.6-4.6); Lymphocytes % 14.3 %; Mean Corpuscular HGB Conc 34.5 g/dL (31.6-35.5); Mean Corpuscular Hemoglobin 29.4 pg (28.0-33.3); Mean Corpuscular Volume 85.3 fL (83.0-100.0); Mean Platelet Volume 9.5 fL (9.4-12.4); Monocytes # 1.7 K/mcL (0.0-1.3); Monocytes % 10.3 %; Neutrophils # 11.8 K/mcL (1.6-8.9); Platelet Count 605 K/mcL (140-400); Red Cell Distribution Width 14.3 % (11.5-14.5); Segmented Neutrophils % 72.4 %
[2017-08-02 06:27] LABS: Alanine Aminotransferase 27 Units/L (7-52); Albumin 3.4 g/dL (3.5-5.7); Alkaline Phosphatase 44 Units/L (34-104); Aspartate Amino Transferase 16 Units/L (13-39); BUN/Creatinine Ratio 7 (6-26); Bilirubin,Direct 0.1 mg/dL (0.0-0.2); Bilirubin,Indirect 0.4 mg/dL (0.0-1.2); Bilirubin,Total 0.5 mg/dL (0.3-1.0); Blood Urea Nitrogen 5 mg/dL (6-20); Calcium 9.1 mg/dL (8.6-10.3); Carbon Dioxide 25 mEq/L (23-29); Chloride 104 mEq/L (98-107); Globulin 3.3 g/dL (2.4-3.5); Glucose 133 mg/dL (70-105); Magnesium 1.9 mg/dL (1.6-2.6); Osmolality,Calculated 281 (280-300); Potassium 3.6 mEq/L (3.5-5.1); Sodium 136 mEq/L (136-145); Total Protein 6.7 g/dL (6.4-8.9); eGFR For African Americans > 60 (> 60); eGFR For Non-African Americans > 60 (> 60)
[2017-08-02] MEDS: Insulin LISPRO 300 UNITS/3 ML VIAL SQ SCH ×3 (07:57→17:17)
[2017-08-02] MEDS: (Roflumilast [Daliresp] 500 MCG) PO SCH (07:59)
--- NOTE | 2017-08-02 16:33 | Internal Med Progress Note ---
Date of Encounter: 08/02/17 Time of Encounter: 13:00 - Assessment and plan (1) SIRS (systemic inflammatory response syndrome) Current Visit: Yes Status: Acute Assessment and plan: Presented with fever, tachycardia, leukocytosis, possibly from recent surgery with intra-abdominal fluid collection. Continue IV antibiotics and supportive care. (2) PNA (pneumonia) Current Visit: Yes Status: Ruled-out Assessment and plan: Suspected at admission. Chest x-ray reviewed independently-no evidence of focal infiltrates or pneumonia. Pneumonia ruled out. Qualifiers: Pneumonia type: due to unspecified organism Laterality: right Lung location: middle lobe of lung Qualified Code(s): J18.1 - Lobar pneumonia, unspecified organism (3) Anastomotic leak of intestine Current Visit: Yes Status: Acute Assessment and plan: recent cholecystectomy, drainage of subsequent abscess and partial colectomy, CT abdomen/pelvis done in the emergency room showed multiloculated fluid collection containing gas adjacent to the anastomotic sutures, could represent an infectious process or an anastomotic leak. Case discussed with surgery, resume clear liquid diet. Continue IV antibiotics- vancomycin and Zosyn. Preliminary blood cultures negative. Patient to be evaluated by Dr. Brunner tomorrow, plan for possible repeat CT abdomen and drain placement by IR; pain control with oral Tylenol and tramadol. Supportive care. (4) COPD (chronic obstructive pulmonary disease) Current Visit: Yes Status: Chronic Assessment and plan: Not in acute exacerbation. Continue bronchodilators and supplemental oxygen. Qualifiers: COPD type: chronic bronchitis Chronic bronchitis type: simple Qualified Code(s): J41.0 - Simple chronic bronchitis (5) Diabetes mellitus Current Visit: Yes Status: Chronic Assessment and plan: Blood sugars well controlled. Continue Accu-Chek blood glucose monitoring with sliding scale insulin as needed. Diabetic clear liquid diet. Qualifiers: Diabetes mellitus type: type 2 Diabetes mellitus complication status: with unspecified complications Diabetes mellitus halfway insulin use: without intermediate teacher use Qualified Code(s): E11.8 - Type 2 diabetes mellitus with unspecified complications (6) HTN (hypertension) Current Visit: Yes Status: Chronic Qualifiers: Hypertension type: essential hypertension Qualified Code(s): I10 - Essential (primary) hypertension (7) Hypothyroid Current Visit: Yes Status: Chronic Qualifiers: Hypothyroidism type: unspecified Qualified Code(s): E03.9 - Hypothyroidism , unspecified - Subjective Interval history: Patient very upset about his plan of care, has multiple surgery related questions. Tried to answer to the best of my ability. Reports persistent right lower abdominal pain, improved fever. No vomiting or diarrhea. - Constitutional Vitals: Temp Pulse Resp BP Pulse Ox 99.4 F 102 16 120/77 95 08/02/17 14:24 08/02/17 14:24 08/02/17 14:24 08/02/17 14:24 08/02/17 14:24 General appearance: Present: A&O X 3, answers questions appropriately - Respiratory Respiratory exam: Present: CTAB. Absent: accessory muscle use, rales, rhonchi, wheezes - Cardiovascular Cardiovascular exam: Present: RRR, +S1, +S2. Absent: diastolic murmur, gallop, rubs, systolic murmur - GI/Abdominal GI/Abdominal exam: Present: normal bowel sounds, soft (Right lower quadrant tenderness), no peritoneal signs. Absent: distended, tenderness Internal Medicine: Result - Labs CBC & Chem 7: 08/02/17 05:54 08/02/17 05:54 Labs: Short CBC 08/02/17 Range/Units 05:54 WBC 16.3 H (4.3-11.1) K/mcL Hgb 10.6 L (12.9-16.9) g/dL Hct 30.7 L (37.5-50.1) % Plt Count 605 H (140-400) K/mcL Neutrophils # 11.8 H (1.6-8.9) K/mcL BMP 08/02/17 05:54 Sodium 136 Potassium 3.6 Chloride 104 Carbon Dioxide 25 BUN 5 L Creatinine 0.67 L Glucose 133 H Calcium 9.1 Liver Function 08/02/17 Range/Units 05:54 Total Bilirubin 0.5 (0.3-1.0) mg/dL Direct Bilirubin 0.1 (0.0-0.2) mg/dL AST 16 (13-39) Units/L ALT 27 (7-52) Units/L Alkaline Phosphatase 44 (34-104) Units/L Albumin 3.4 L (3.5-5.7) g/dL Consult Discharge Plan - Plan Referrals: Artemio Briggs DO [Primary Care Provider] -
--- NOTE | 2017-08-02 18:14 | Event Note ---
Date of Encounter: 08/02/17 Time of Encounter: 18:09 Pt is better than yesterday. On clear liquids. Will recheck a CT in the am to evaluate the anastomosis. Case discussed with Dr. Brunner.
[2017-08-02] MEDS: *HR* LORazepam 0.5 MG TABLET PO PRN (21:21)
[2017-08-03] MEDS: Ipratropium/Albuterol Neb 3 ML IH SCH ×4 (04:20→21:41)
[2017-08-03] MEDS: *HR* Enoxaparin 40 MG/0.4 ML SYRINGE SQ SCH (05:25)
[2017-08-03] MEDS: Vancomycin 1,250 MG in D5% in Water 250 ML IVPB SCH ×2 (05:26→23:49)
[2017-08-03 05:27] LABS: Basophils # 0.1 K/mcL (0.0-0.2); Basophils % 0.5 %; Eosinophils # 0.2 K/mcL (0.0-0.6); Eosinophils % 1.2 %; Hematocrit 30.4 % (37.5-50.1); Hemoglobin 10.7 g/dL (12.9-16.9); Immature Granulocytes % 0.5 % (0-4); Lymphocytes # 2.3 K/mcL (0.6-4.6); Lymphocytes % 13.6 %; Mean Corpuscular HGB Conc 35.2 g/dL (31.6-35.5); Mean Corpuscular Volume 85.2 fL (83.0-100.0); Mean Platelet Volume 9.4 fL (9.4-12.4); Monocytes # 1.8 K/mcL (0.0-1.3); Monocytes % 10.8 %; Neutrophils # 12.5 K/mcL (1.6-8.9); Platelet Count 618 K/mcL (140-400); Red Blood Count 3.57 M/mcL (4.19-5.50); Red Cell Distribution Width 14.6 % (11.5-14.5); Segmented Neutrophils % 73.4 %
[2017-08-03 05:42] LABS: Alanine Aminotransferase 22 Units/L (7-52); Albumin 3.3 g/dL (3.5-5.7); Albumin/Globulin Ratio 0.9 (1.1-2.2); Alkaline Phosphatase 43 Units/L (34-104); Aspartate Amino Transferase 13 Units/L (13-39); BUN/Creatinine Ratio 7 (6-26); Bilirubin,Direct 0.2 mg/dL (0.0-0.2); Bilirubin,Indirect 0.3 mg/dL (0.0-1.2); Bilirubin,Total 0.5 mg/dL (0.3-1.0); Blood Urea Nitrogen 5 mg/dL (6-20); Calcium 9.4 mg/dL (8.6-10.3); Carbon Dioxide 26 mEq/L (23-29); Chloride 103 mEq/L (98-107); Globulin 3.5 g/dL (2.4-3.5); Glucose 129 mg/dL (70-105); Magnesium 1.9 mg/dL (1.6-2.6); Osmolality,Calculated 281 (280-300); Potassium 3.5 mEq/L (3.5-5.1); Sodium 136 mEq/L (136-145); Total Protein 6.8 g/dL (6.4-8.9); eGFR For African Americans > 60 (> 60); eGFR For Non-African Americans > 60 (> 60)
[2017-08-03] MEDS: Vancomycin 1,500 MG in D5% in Water 250 ML IVPB SCH ×2 (06:26→18:23)
[2017-08-03] MEDS: carBAMazepine 200 MG TABLET PO SCH ×2 (09:18→16:10)
[2017-08-03] MEDS: traMADol 50 MG TABLET PO PRN ×3 (09:19→21:55)
[2017-08-03] MEDS: Insulin LISPRO 300 UNITS/3 ML VIAL SQ SCH ×3 (09:19→16:08)
[2017-08-03] MEDS: (Roflumilast [Daliresp] 500 MCG) PO SCH (11:12)
--- NOTE | 2017-08-03 12:38 | General Surgery Progress Note ---
<JasonhunterJackie - Last Filed: 08/03/17 13:26> Date of Encounter: 08/03/17 Time of Encounter: 07:00 - Assessment and Plan (1) Intra-abdominal collection Current Visit: Yes Status: Acute Patient maintains that he has been experiencing low grade fevers, night swears, and persistent abdominal pain. 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 - CT abdomen and pelvis on 08/03/2017- Postsurgical changes from prior partial colectomy. The fluid collection seenadjacent to the colectomy site is minimally bigger than on the prior examination. There is no evidence for leak of contrast into this fluid collection and there are several small pockets of air seen within the fluid collection. This is concerning for a possible abscess. -Patient able to eat diet. Resting comfortably. Patient verbalizing that he would like to do intervention including drain placement. -Keep zosyn and vancomycin. -NPO midnight -Consult to IR for CT-guided aspiration of intraabdominal fluid collection. -Aerobic and anaerobic cultures of fluid and gram stain. Subjective Patient reports: still having pain (mild right sided abdominal pain.), tolerating a regular diet, voiding w/o difficulty, flatus, bowel movement, afebrile, other (night sweats and subjective fevers) Objective Vital Signs - Last 8 Hours Temp Pulse Resp BP Pulse Ox 08/03/17 11:23 98.9 F 83 16 126/82 96 08/03/17 09:12 98 08/03/17 08:55 20 98 Intake and Output 08/02/17 08/03/17 08/03/17 23:59 07:59 15:59 Intake Total 350 / 350 100 / 100 590 / 590 Output Total 550 / 550 550 / 550 Balance -200 / -200 -450 / -450 590 / 590 Intake: IV Fluids 350 / 350 100 / 100 350 / 350 Zosyn 3.375 GM In 0.9 % Sodium 100 / 100 100 / 100 100 / 100 Chloride 100 ML @ 25 mls/hr IVPB Q8H JERILYN Rx#:[id number] Vancocin 1,500 MG In Dextrose 5 250 / 250 250 / 250 % 250 ML @ 166.667 mls/hr IVPB Q12H JERILYN Rx#:[id number] Oral 0 / 0 0 / 0 240 / 240 Output: Urine 550 / 550 550 / 550 Other: Meal Breakfast Percent of Meal Consumed 100% Blood Glucose* 174 151 112 - General physical appearance well developed, well nourished, no distress, other (mild abdominal pain) - Eyes PERRL, normal ocular movement - Neck Neck exam: trachea midline, no venous distension - Respiratory normal expansion, clear to auscultation - Cardiovascular Cardiovascular exam: Present: RRR, no murmurs/rubs/gallops - Abdomen Abdomen: Present: bowel sounds present, soft Abdominal Tenderness: RUQ (mild), RLQ Hernia: none - Incision Incision: Present: clean and dry, intact (well healing midline incision) - Integumentary no rash, no growths - Neurologic CN 2-12 grossly intact, normal coordination, normal sensation - Psychiatric oriented to time, oriented to person, oriented to place, speech is normal, memory intact - Labs 08/03/17 05:16 08/03/17 05:16 Diabetes panel 08/03/17 Range/Units 05:16 Sodium 136 (136-145) mEq/L Potassium 3.5 (3.5-5.1) mEq/L Chloride 103 (98-107) mEq/L Carbon Dioxide 26 (23-29) mEq/L BUN 5 L (6-20) mg/dL Creatinine 0.73 (0.70-1.30) mg/dL Glucose 129 H (70-105) mg/dL Calcium 9.4 (8.6-10.3) mg/dL AST 13 (13-39) Units/L ALT 22 (7-52) Units/L Alkaline Phosphatase 43 (34-104) Units/L Albumin 3.3 L (3.5-5.7) g/dL Calcium panel 08/03/17 Range/Units 05:16 Calcium 9.4 (8.6-10.3) mg/dL Albumin 3.3 L (3.5-5.7) g/dL Pituitary panel 08/03/17 Range/Units 05:16 Sodium 136 (136-145) mEq/L Potassium 3.5 (3.5-5.1) mEq/L Chloride 103 (98-107) mEq/L Carbon Dioxide 26 (23-29) mEq/L BUN 5 L (6-20) mg/dL Creatinine 0.73 (0.70-1.30) mg/dL Glucose 129 H (70-105) mg/dL Calcium 9.4 (8.6-10.3) mg/dL Adrenal panel 08/03/17 Range/Units 05:16 Sodium 136 (136-145) mEq/L Potassium 3.5 (3.5-5.1) mEq/L Chloride 103 (98-107) mEq/L Carbon Dioxide 26 (23-29) mEq/L BUN 5 L (6-20) mg/dL Creatinine 0.73 (0.70-1.30) mg/dL Glucose 129 H (70-105) mg/dL Calcium 9.4 (8.6-10.3) mg/dL Total Bilirubin 0.5 (0.3-1.0) mg/dL AST 13 (13-39) Units/L ALT 22 (7-52) Units/L Alkaline Phosphatase 43 (34-104) Units/L Albumin 3.3 L (3.5-5.7) g/dL Consult Discharge Plan - Plan Referrals: Artemio Briggs DO [Primary Care Provider] - <Haris Brunner - Last Filed: 08/04/17 14:22> Date of Encounter: 08/03/17 Objective Vital Signs - Last 8 Hours Temp Pulse Resp BP Pulse Ox 08/04/17 11:49 97.5 F L 79 16 118/73 97 08/04/17 10:10 82 14 97/58 97 08/04/17 10:00 85 14 104/53 98 08/04/17 07:17 98.6 F 97 16 120/71 95 Intake and Output 08/03/17 08/04/17 08/04/17 23:59 07:59 15:59 Intake Total 710 / 710 350 / 350 88 / 88 Output Total 500 / 500 750 / 750 200 / 200 Balance 210 / 210 -400 / -400 -112 / -112 Intake: IV Fluids 350 / 350 350 / 350 88 / 88 Zosyn 3.375 GM In 0.9 % Sodium 100 / 100 100 / 100 88 / 88 Chloride 100 ML @ 25 mls/hr IVPB Q8H JERILYN Rx#:[id number] Vancocin 1,500 MG In Dextrose 5 250 / 250 250 / 250 % 250 ML @ 166.667 mls/hr IVPB Q12H JERILYN Rx#:[id number] Oral 360 / 360 0 / 0 0 / 0 Output: Urine 500 / 500 750 / 750 150 / 150 Wound Drainage 50 / 50 Right Lower Back 50 / 50 Other: Meal Dinner NPO Percent of Meal Consumed 100% 0% Weight 89.01 kg Blood Glucose* 154 140 129 Patient Weight 08/04/17 23:59 Weight 89.01 kg - Labs 08/04/17 05:24 08/03/17 05:16 - Attending Attestation I examined this patient and my medical decision-making was reviewed with the Resident Physician. I agree with the documented findings, disposition and treatment plan as described except to the extent set forth below. The patient is seen and evaluated with the resident morning rounds. The clinical information is discussed and shared with the clinical nurse practitioner. He underwent CAT scan today that demonstrated an abscess with no evidence of anastomotic leak. I discussed these findings with the interventional radiologist and we plan to proceed with CAT scan drainage tomorrow. Continue IV antibiotics. Abscess likely related to previous subhepatic abscess and colo-biliary fistula Haris Brunner MD FACS
--- NOTE | 2017-08-03 18:07 | Internal Med Progress Note ---
Date of Encounter: 08/03/17 Time of Encounter: 15:00 - Assessment and plan (1) SIRS (systemic inflammatory response syndrome) Current Visit: Yes Status: Acute Assessment and plan: Presented with fever, tachycardia, leukocytosis, possibly from recent surgery with intra-abdominal fluid collection. Continue IV antibiotics and supportive care. Improved vital signs, persistent leukocytosis and thrombocytosis, likely reactive. (2) PNA (pneumonia) Current Visit: Yes Status: Ruled-out Qualifiers: Pneumonia type: due to unspecified organism Laterality: right Lung location: middle lobe of lung Qualified Code(s): J18.1 - Lobar pneumonia, unspecified organism (3) Anastomotic leak of intestine Current Visit: Yes Status: Acute Assessment and plan: recent cholecystectomy, drainage of subsequent abscess, repair of cholecolonic fistula, and partial colectomy, CT abdomen/pelvis done in the emergency room showed multiloculated fluid collection containing gas adjacent to the anastomotic sutures, could represent an infectious process or an anastomotic leak. Repeat CT abdomen today shows almost same sized fluid collection with no leakage of contrast into the cavity, likely an abscess; Case discussed with surgery, continue current management and plan for CT-guided drain placement by IR in am; continue clear liquid diet. Continue IV antibiotics-vancomycin and Zosyn. Preliminary blood cultures negative. pain control with oral Tylenol and tramadol. Supportive care. (4) COPD (chronic obstructive pulmonary disease) Current Visit: Yes Status: Chronic Assessment and plan: Not in acute exacerbation. Continue bronchodilators and supplemental oxygen. Qualifiers: COPD type: chronic bronchitis Chronic bronchitis type: simple Qualified Code(s): J41.0 - Simple chronic bronchitis (5) Diabetes mellitus Current Visit: Yes Status: Chronic Assessment and plan: Blood sugars well controlled. Continue Accu-Chek blood glucose monitoring with sliding scale insulin as needed. Diabetic clear liquid diet. Qualifiers: Diabetes mellitus type: type 2 Diabetes mellitus complication status: with unspecified complications Diabetes mellitus detention insulin use: without acute care physician use Qualified Code(s): E11.8 - Type 2 diabetes mellitus with unspecified complications (6) HTN (hypertension) Current Visit: Yes Status: Chronic Qualifiers: Hypertension type: essential hypertension Qualified Code(s): I10 - Essential (primary) hypertension (7) Hypothyroid Current Visit: Yes Status: Chronic Assessment and plan: continue Levothyroxine; Qualifiers: Hypothyroidism type: unspecified Qualified Code(s): E03.9 - Hypothyroidism , unspecified (8) Thrombocytosis Current Visit: Yes Status: Acute Assessment and plan: likely reactive;continue to monitor; (9) Intra-abdominal collection Current Visit: Yes Status: Acute Assessment and plan: plan as above; - Subjective Interval history: Improved fever, chills; persistent RLQ abdominal pain; tolerates clear liquid diet; reports feeling better today as he is planned to receive drain by IR tomorrow; - Constitutional Vitals: Temp Pulse Resp BP Pulse Ox 97.8 F 62 16 117/53 95 08/03/17 14:00 08/03/17 14:00 08/03/17 14:00 08/03/17 14:00 08/03/17 14:00 General appearance: Present: A&O X 3, answers questions appropriately - Respiratory Respiratory exam: Present: decreased breath sounds (at B/L bases), CTAB. Absent : accessory muscle use, rales, rhonchi, wheezes - Cardiovascular Cardiovascular exam: Present: RRR, +S1, +S2. Absent: diastolic murmur, gallop, rubs, systolic murmur - GI/Abdominal GI/Abdominal exam: Present: hyperactive bowel sounds, soft (mild tenderness to deep palpation in RLQ), no peritoneal signs. Absent: distended, tenderness Additional comments: midline surgical scar healing well; sharp projection felt in the distal suture line, patient thinks its a retained staple; - Neurological Exam Neurological exam: Present: CN II-XII intact, oriented X3, no focal deficits. Absent: pronater drift, facial droop, speech deficit Internal Medicine: Result - Labs CBC & Chem 7: 08/03/17 05:16 08/03/17 05:16 Labs: Short CBC 08/03/17 Range/Units 05:16 WBC 17.1 H (4.3-11.1) K/mcL Hgb 10.7 L (12.9-16.9) g/dL Hct 30.4 L (37.5-50.1) % Plt Count 618 H (140-400) K/mcL Neutrophils # 12.5 H (1.6-8.9) K/mcL BMP 08/03/17 05:16 Sodium 136 Potassium 3.5 Chloride 103 Carbon Dioxide 26 BUN 5 L Creatinine 0.73 Glucose 129 H Calcium 9.4 Liver Function 08/03/17 Range/Units 05:16 Total Bilirubin 0.5 (0.3-1.0) mg/dL Direct Bilirubin 0.2 (0.0-0.2) mg/dL AST 13 (13-39) Units/L ALT 22 (7-52) Units/L Alkaline Phosphatase 43 (34-104) Units/L Albumin 3.3 L (3.5-5.7) g/dL - Impressions Impressions Abdomen/Pelvis CT 08/03/17 07:30 IMPRESSION: Postsurgical changes from prior partial colectomy. The fluid collection seen adjacent to the colectomy site is minimally bigger than on the prior examination. There is no evidence for leak of contrast into this fluid collection and there are several small pockets of air seen within the fluid collection. This is concerning for a possible abscess. D/ / 08/03/2017 09:07:00 Ryland Ramírez MD / isaac Interpreting Provider: Ryland Ramírez MD Consult Discharge Plan - Plan Referrals: Artemio Briggs DO [Primary Care Provider] -
[2017-08-03] MEDS: *HR* LORazepam 0.5 MG TABLET PO PRN (22:34)
[2017-08-04] MEDS: carBAMazepine 200 MG TABLET PO SCH ×4 (00:06→23:50)
[2017-08-04] MEDS: Ipratropium/Albuterol Neb 3 ML IH SCH ×4 (03:42→23:05)
[2017-08-04] MEDS: Vancomycin 1,500 MG in D5% in Water 250 ML IVPB SCH ×2 (05:32→19:27)
[2017-08-04] MEDS: *HR* Enoxaparin 40 MG/0.4 ML SYRINGE SQ SCH (05:33)
[2017-08-04 06:16] LABS: Basophils # 0.1 K/mcL (0.0-0.2); Basophils % 0.5 %; Eosinophils # 0.2 K/mcL (0.0-0.6); Eosinophils % 0.9 %; Hematocrit 30.4 % (37.5-50.1); Hemoglobin 10.6 g/dL (12.9-16.9); Immature Granulocytes % 0.5 % (0-4); Lymphocytes # 2.9 K/mcL (0.6-4.6); Lymphocytes % 16.7 %; Mean Corpuscular HGB Conc 34.9 g/dL (31.6-35.5); Mean Corpuscular Hemoglobin 29.6 pg (28.0-33.3); Mean Corpuscular Volume 84.9 fL (83.0-100.0); Monocytes # 1.9 K/mcL (0.0-1.3); Monocytes % 10.9 %; Neutrophils # 12.1 K/mcL (1.6-8.9); Nucleated Red Blood Cells 0.2 /100 WBC (0); Platelet Count 558 K/mcL (140-400); Red Blood Count 3.58 M/mcL (4.19-5.50); Red Cell Distribution Width 14.6 % (11.5-14.5); Segmented Neutrophils % 70.5 %
[2017-08-04] MEDS: Insulin LISPRO 300 UNITS/3 ML VIAL SQ SCH ×4 (07:51→22:02)
--- NOTE | 2017-08-04 08:54 | Internal Med Progress Note ---
<Shukri Kline - Last Filed: 08/04/17 15:23> Date of Encounter: 08/04/17 Time of Encounter: 08:49 - Assessment and plan (1) Intra-abdominal collection Current Visit: Yes Status: Acute Assessment and plan: CT of abdomen and pelvis demonstrated the following: -Postsurgical changes from prior partial colectomy. -The fluid collection seen adjacent to the colectomy site is minimally bigger than on the prior examination. -There is no evidence for leak of contrast into this fluid collection and there are several small pockets of air seen within the fluid collection. -This is concerning for a possible abscess. Plan: -IR consulted for possible abscess drainage -Vancomycin 1500 mg IV Q12 -Zosyn 3.375 g IV Q8 (2) SIRS (systemic inflammatory response syndrome) Current Visit: Yes Status: Acute Assessment and plan: Presented with fever, tachycardia, leukocytosis, possibly from recent surgery with intra-abdominal fluid collection Current white count is 17.2 Plan: -Vancomycin 1500 mg IV Q12 -Zosyn 3.375 g IV Q8 -IR Consulted; Possible abscess drainage (3) Thrombocytosis Current Visit: Yes Status: Acute Assessment and plan: Likely reactive; continue to monitor (4) COPD (chronic obstructive pulmonary disease) Current Visit: Yes Status: Chronic Assessment and plan: Not in acute exacerbation Continue bronchodilators and supplemental oxygen Qualifiers: COPD type: chronic bronchitis Chronic bronchitis type: simple Qualified Code(s): J41.0 - Simple chronic bronchitis (5) Diabetes mellitus Current Visit: Yes Status: Chronic Assessment and plan: Blood sugars well controlled -Continue Accu-Chek blood glucose monitoring with sliding scale insulin as needed -Diabetic clear liquid diet. Qualifiers: Diabetes mellitus type: type 2 Diabetes mellitus complication status: with unspecified complications Diabetes mellitus joint terminal attack controller insulin use: without fpc use Qualified Code(s): E11.8 - Type 2 diabetes mellitus with unspecified complications (6) Hypothyroid Current Visit: Yes Status: Chronic Assessment and plan: continue Levothyroxine Qualifiers: Hypothyroidism type: unspecified Qualified Code(s): E03.9 - Hypothyroidism , unspecified (7) HTN (hypertension) Current Visit: Yes Status: Chronic Qualifiers: Hypertension type: essential hypertension Qualified Code(s): I10 - Essential (primary) hypertension - Subjective Interval history: 57-year-old male with a PMH of arthritis, COPD, GERD, hypertension, thyroid disease who presented to the ED on 08/01/17 after undergoing cholecystectomy and 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 He was discharged with abx and bowel rest instructions. Patient reported that been experiencing fevers at home. He also had increasing abdominal pain with distention. Stated that this had been an ongoing issue for him since discharge approximately 10 days prior to admission. He denies any significant appetite at this point. Intermittent fevers and chills. Pain at a 9/10 at its worst. Patients pulse was elevated on presentation at 109 bpm. All other vital signs were within normal limits. CXR demonstrated the following: Middle lobe disease; possibly represents pneumonia and/or atelectasis. Vertically oriented linear opacity in the medial right lower lobe, likely atelectasis. CT abdomen and pelvis demonstrated the following: Status post cholecystectomy. Small amount of fluid within the gallbladder fossa and tracking along the edge of the liver, probably postsurgical. Postsurgical changes of the lower right colon with anastomotic sutures. Multiloculated fluid collection containing gas adjacent to the anastomotic sutures. Could represent an infectious process and/or an anastomotic leak. General Surgery was consulted for management and recommendations. CT of abdomen and pelvis was repeated on per the recommendation of general surgery. Repeat CT of abdomen demonstrated the following: Postsurgical changes from prior partial colectomy. The fluid collection seen adjacent to the colectomy site is minimally bigger than on the prior examination. There is no evidence for leak of contrast into this fluid collection and there are several small pockets of air seen within the fluid collection. This is concerning for a possible abscess. Per the recommendation of general surgery, IR was consulted for CT-guided aspiration of intraabdominal fluid collection. Blood CX were drawn; negative x 2. Patient seen and examined at bedside; reports some RLQ abdominal tenderness. - Constitutional Vitals: Temp Pulse Resp BP Pulse Ox 98.6 F 97 16 120/71 95 08/04/17 07:17 08/04/17 07:17 08/04/17 07:17 08/04/17 07:17 08/04/17 07:17 General appearance: Present: A&O X 3, answers questions appropriately - Head Head exam: Present: atraumatic, normocephalic - Eye Eye exam: Present: PERRL, conjuntiva pink, sclera anicteric Pupils: Present: PERRL - Neck Neck exam general surgery: Present: supple, trachea midline. Absent: lymphadenopathy - Respiratory Respiratory exam: Present: CTAB. Absent: accessory muscle use, rales, rhonchi, wheezes - Cardiovascular Cardiovascular exam: Present: RRR, +S1, +S2. Absent: diastolic murmur, gallop, rubs, systolic murmur - GI/Abdominal GI/Abdominal exam: Present: normal bowel sounds, tenderness (RLQ pain). Absent : distended - Extremities Exam Extremities exam: Present: warm, radial pulses palpable and symmetrical. Absent : calf tenderness, cyanotic, pedal edema - Neurological Exam Neurological exam: Present: CN II-XII intact, oriented X3, no focal deficits. Absent: pronater drift, facial droop, speech deficit - Skin Skin exam: Present: dry, intact Internal Medicine: Result - Labs CBC & Chem 7: 08/04/17 05:24 08/03/17 05:16 Labs: Short CBC 08/04/17 Range/Units 05:24 WBC 17.2 H (4.3-11.1) K/mcL Hgb 10.6 L (12.9-16.9) g/dL Hct 30.4 L (37.5-50.1) % Plt Count 558 H (140-400) K/mcL Neutrophils # 12.1 H (1.6-8.9) K/mcL - Impressions Impressions Abdomen/Pelvis CT 08/03/17 07:30 IMPRESSION: Postsurgical changes from prior partial colectomy. The fluid collection seen adjacent to the colectomy site is minimally bigger than on the prior examination. There is no evidence for leak of contrast into this fluid collection and there are several small pockets of air seen within the fluid collection. This is concerning for a possible abscess. D/ / 08/03/2017 09:07:00 Ryland Ramírez MD / isaac Interpreting Provider: Ryland Ramírez MD Consult Discharge Plan - Plan Referrals: Artemio Briggs DO [Primary Care Provider] - <Bony Islas T - Last Filed: 08/04/17 15:48> Date of Encounter: 08/04/17 - Assessment and plan (1) Sepsis Current Visit: Yes Status: Acute Qualifiers: Sepsis type: sepsis due to unspecified organism Qualified Code(s): A41.9 - Sepsis, unspecified organism (2) Anastomotic leak of intestine Current Visit: Yes Status: Acute (3) Intra-abdominal collection Current Visit: Yes Status: Acute (4) Thrombocytosis Current Visit: Yes Status: Acute (5) COPD (chronic obstructive pulmonary disease) Current Visit: Yes Status: Chronic Qualifiers: COPD type: chronic bronchitis Chronic bronchitis type: simple Qualified Code(s): J41.0 - Simple chronic bronchitis (6) Diabetes mellitus Current Visit: Yes Status: Chronic Qualifiers: Diabetes mellitus type: type 2 Diabetes mellitus complication status: with unspecified complications Diabetes mellitus fpc insulin use: without joint terminal attack controller use Qualified Code(s): E11.8 - Type 2 diabetes mellitus with unspecified complications (7) HTN (hypertension) Current Visit: Yes Status: Chronic Qualifiers: Hypertension type: essential hypertension Qualified Code(s): I10 - Essential (primary) hypertension (8) Hypothyroid Current Visit: Yes Status: Chronic Qualifiers: Hypothyroidism type: unspecified Qualified Code(s): E03.9 - Hypothyroidism , unspecified - Constitutional Vitals: Temp Pulse Resp BP Pulse Ox 101.6 F H 79 16 118/73 97 08/04/17 14:52 08/04/17 11:49 08/04/17 12:08 08/04/17 11:49 08/04/17 12:08 Internal Medicine: Result - Labs CBC & Chem 7: 08/04/17 05:24 08/03/17 05:16 Labs: Short CBC 08/04/17 Range/Units 05:24 WBC 17.2 H (4.3-11.1) K/mcL Hgb 10.6 L (12.9-16.9) g/dL Hct 30.4 L (37.5-50.1) % Plt Count 558 H (140-400) K/mcL Neutrophils # 12.1 H (1.6-8.9) K/mcL - Impressions Impressions Needle Aspiration CT 08/04/17 09:33 IMPRESSION: Successful CT guided placement of right abdominal abscess drainage catheter from a posterior approach. D/ / Nelson Sumner MD / Nelson Sumner MD Interpreting Provider: Nelson Sumner MD - Attending Attestation Seen and evaluated at bedside with spouse 57 M with DM, HTN, ?seizure disorder, who recently had cholecystectomy, drainage of hepatic abscesses, irene-colonic fistula repair, partial colon resection on 06/2017 At time of eval, He has just returned from his IR uuided drainage. 70cc of purulent material was removed and his drain currently has about 55cc of purulent discharge. Specimen was sent for culture He is still having fevers, and leukocytosis persists. His main complain is of pain Gen surg is following Abdomen is not distended, mildly tender Patient now has sepsis by criteria and source is intrabdominal collection Admitting blood culture was negative X2, we will repeat one due to new fever this afternoon of Consult Infectious disease Continue vanco and Zosyn and follow gram stain and culture of colo-colonic ansatomosis site abscess. Monitor vanc trough Per surgery , patient can be fed. patient and his at the bedside educated about plan of care Rest of details is an in the resident physician's documentation
[2017-08-04] MEDS ORDERED: *HR* FentaNYL (PF) 100 MCG/2 ML VIAL IVP ONE ×2 (09:56→13:06)
[2017-08-04] MEDS ORDERED: *HR* Midazolam HCl 2 MG/2 ML VIAL IVP ONE (09:56)
[2017-08-04] MEDS ORDERED: *HR* FentaNYL (PF) 100 MCG/2 ML VIAL ONE (09:59)
[2017-08-04] MEDS ORDERED: *HR* Midazolam HCl 2 MG/2 ML VIAL ONE (09:59)
[2017-08-04] MEDS ORDERED: 0.9 % Sodium Chloride 500 ML ONE (10:00)
--- NOTE | 2017-08-04 10:47 | IR Procedure Note ---
Date of procedure: 08/04/17 Consent Obtained: Written consent Timeout: Correct patient and procedure verified, Correct site verified, Time out performed, Skin prep completed Local anesthetic: Lidocaine 1% Indications: Right abdominal abscess Procedure Performed: CT guided drain placement Was there an mental health assistant present: No Site/Technique: Right posterior approach Results/Findings: 15cm 18g needle access. 12fr locking loop drain. 55ml pus aspirated. Estimated blood loss (cc): 1 Complications: None; Tolerated procedure well Post Procedure Treatment Plan: Monitoring in pts room. Sample of pus sent to lab. Specimen: Sample sent to lab.
[2017-08-04] MEDS: traMADol 50 MG TABLET PO PRN (11:05)
[2017-08-04] MEDS: (Roflumilast [Daliresp] 500 MCG) PO SCH (11:05)
--- NOTE | 2017-08-04 11:34 | General Surgery Progress Note ---
<JasonhunterJackie - Last Filed: 08/04/17 11:28> Date of Encounter: 08/04/17 Time of Encounter: 09:00 - Assessment and Plan (1) Intra-abdominal collection Current Visit: Yes Status: Acute Patient maintains that he has been experiencing low grade fevers, night swears, and persistent abdominal pain since his surgery approximately 5 weeks ago. 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 - CT abdomen and pelvis on 08/03/2017- Postsurgical changes from prior partial colectomy. The fluid collection seen adjacent to the colectomy site is minimally bigger than on the prior examination. There is no evidence for leak of contrast into this fluid collection and there are several small pockets of air seen within the fluid collection. This is concerning for a possible abscess. -Patient has no complaints this morning. -Currently on zosyn and vancomycin. -Will restart diet. -CT-guided placement of intra-abdominal fluid collection drain handled this morning without incident. -Follow-up fluid analysis including cultures and Gram stain. -Antibiotic management per primary team. Will continue to follow patient for clinical improvement. Subjective Patient reports: no new complaints, feels better, pain is less, voiding w/o difficulty, afebrile Objective Vital Signs - Last 8 Hours Temp Pulse Resp BP Pulse Ox 08/04/17 10:10 82 14 97/58 97 08/04/17 10:00 85 14 104/53 98 08/04/17 07:17 98.6 F 97 16 120/71 95 08/04/17 05:03 98.9 F 100 17 110/67 93 08/04/17 03:46 17 117/67 95 Intake and Output 08/03/17 08/04/17 08/04/17 23:59 07:59 15:59 Intake Total 710 / 710 350 / 350 Output Total 500 / 500 750 / 750 Balance 210 / 210 -400 / -400 Intake: IV Fluids 350 / 350 350 / 350 Zosyn 3.375 GM In 0.9 % Sodium 100 / 100 100 / 100 Chloride 100 ML @ 25 mls/hr IVPB Q8H [facility] Rx#:[id number] Vancocin 1,500 MG In Dextrose 5 250 / 250 250 / 250 % 250 ML @ 166.667 mls/hr IVPB Q12H [facility] Rx#:[id number] Oral 360 / 360 0 / 0 0 / 0 Output: Urine 500 / 500 750 / 750 Other: Meal Dinner NPO Percent of Meal Consumed 100% 0% Weight 89.01 kg Blood Glucose* 154 140 Patient Weight 08/04/17 23:59 Weight 89.01 kg - General physical appearance well developed, well nourished, no distress, no pain - ENT no congestion - Neck Neck exam: trachea midline - Respiratory normal expansion, normal respiratory effort, clear to auscultation - Cardiovascular Cardiovascular exam: Present: RRR, no murmurs/rubs/gallops - Abdomen Abdomen: Present: bowel sounds present, soft, non tender - Incision Incision: Present: clean and dry, intact (Well-healing midline vertical incision over the abdomen. No drainage.) - Neurologic CN 2-12 grossly intact, normal coordination, normal sensation - Psychiatric oriented to time, oriented to person, oriented to place, speech is normal, memory intact - Labs 08/04/17 05:24 08/03/17 05:16 Consult Discharge Plan - Plan Referrals: Artemio Briggs, DO [Primary Care Provider] - <Haris Brunner - Last Filed: 08/04/17 14:38> Date of Encounter: 08/04/17 Objective Vital Signs - Last 8 Hours Temp Pulse Resp BP Pulse Ox 08/04/17 11:49 97.5 F L 79 16 118/73 97 08/04/17 10:10 82 14 97/58 97 08/04/17 10:00 85 14 104/53 98 08/04/17 07:17 98.6 F 97 16 120/71 95 Intake and Output 08/03/17 08/04/17 08/04/17 23:59 07:59 15:59 Intake Total 710 / 710 350 / 350 100 / 100 Output Total 500 / 500 750 / 750 200 / 200 Balance 210 / 210 -400 / -400 -100 / -100 Intake: IV Fluids 350 / 350 350 / 350 100 / 100 Zosyn 3.375 GM In 0.9 % Sodium 100 / 100 100 / 100 100 / 100 Chloride 100 ML @ 25 mls/hr IVPB Q8H [facility] Rx#:[id number] Vancocin 1,500 MG In Dextrose 5 250 / 250 250 / 250 % 250 ML @ 166.667 mls/hr IVPB Q12H [facility] Rx#:[id number] Oral 360 / 360 0 / 0 0 / 0 Output: Urine 500 / 500 750 / 750 150 / 150 Wound Drainage 50 / 50 Right Lower Back 50 / 50 Other: Meal Dinner NPO Percent of Meal Consumed 100% 0% Weight 89.01 kg Blood Glucose* 154 140 129 Patient Weight 08/04/17 23:59 Weight 89.01 kg - Labs 08/04/17 05:24 08/03/17 05:16 - Attending Attestation I examined this patient and my medical decision-making was reviewed with the Resident Physician. I agree with the documented findings, disposition and treatment plan as described except to the extent set forth below. The patient was seen and evaluated on morning rounds with rest and the clinical nurse practitioner. He will go for CAT scan directed drainage of abscess today. We will continue IV antibiotics Haris Brunner MD FACS
[2017-08-04] MEDS: Acetaminophen 325 MG TABLET PO PRN (13:55)
[2017-08-04] MEDS: traMADol 50 MG TABLET PO SCH ×2 (14:55→22:01)
[2017-08-04] MEDS ORDERED: 0.9 % Sodium Chloride 500 ML IVC ONE (15:44)
[2017-08-04] MEDS ORDERED: Cefepime HCl 1,000 MG in Water for inj. (sterile) 20 ML 10 ML IVP SCH (18:00)
[2017-08-04] MEDS: *HR* OxyCODONE Immed Rel 5 MG TABLET PO PRN (18:52)
[2017-08-04] MEDS: *HR* LORazepam 0.5 MG TABLET PO PRN (23:50)
[2017-08-05] MEDS: traMADol 50 MG TABLET PO SCH ×4 (04:06→22:46)
[2017-08-05] MEDS: Ipratropium/Albuterol Neb 3 ML IH SCH ×4 (04:22→23:46)
[2017-08-05] MEDS: *HR* OxyCODONE Immed Rel 5 MG TABLET PO PRN ×3 (06:02→20:12)
[2017-08-05] MEDS: *HR* Enoxaparin 40 MG/0.4 ML SYRINGE SQ SCH (06:05)
[2017-08-05 07:22] LABS: Basophils # 0.1 K/mcL (0.0-0.2); Eosinophils # 0.1 K/mcL (0.0-0.6); Eosinophils % 1.4 %; Hematocrit 29.5 % (37.5-50.1); Hemoglobin 10.2 g/dL (12.9-16.9); Immature Granulocytes % 0.5 % (0-4); Lymphocytes # 1.7 K/mcL (0.6-4.6); Lymphocytes % 17.1 %; Mean Corpuscular HGB Conc 34.6 g/dL (31.6-35.5); Mean Corpuscular Hemoglobin 29.1 pg (28.0-33.3); Mean Platelet Volume 9.3 fL (9.4-12.4); Monocytes # 0.9 K/mcL (0.0-1.3); Monocytes % 8.9 %; Neutrophils # 7.3 K/mcL (1.6-8.9); Platelet Count 633 K/mcL (140-400); Red Blood Count 3.51 M/mcL (4.19-5.50); Red Cell Distribution Width 14.7 % (11.5-14.5); Segmented Neutrophils % 71.1 %
[2017-08-05 07:29] LABS: Calcium 8.8 mg/dL (8.6-10.3); Carbon Dioxide 22 mEq/L (23-29); Chloride 104 mEq/L (98-107); Potassium 3.8 mEq/L (3.5-5.1); Sodium 135 mEq/L (136-145)
[2017-08-05 07:35] LABS: BUN/Creatinine Ratio 8 (6-26); Blood Urea Nitrogen 5 mg/dL (6-20); Glucose 139 mg/dL (70-105); Osmolality,Calculated 280 (280-300); eGFR For African Americans > 60 (> 60); eGFR For Non-African Americans > 60 (> 60)
[2017-08-05] MEDS: Insulin LISPRO 300 UNITS/3 ML VIAL SQ SCH ×4 (08:50→21:28)
[2017-08-05] MEDS: carBAMazepine 200 MG TABLET PO SCH ×2 (09:36→15:55)
--- NOTE | 2017-08-05 10:54 | General Surgery Progress Note ---
<JasonhunterJackie - Last Filed: 08/05/17 10:50> Date of Encounter: 08/05/17 Time of Encounter: 08:00 - Assessment and Plan (1) Intra-abdominal collection Current Visit: Yes Status: Acute Patient maintains that he has been experiencing low grade fevers, night swears, and persistent abdominal pain since his surgery approximately 5 weeks ago. 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 - CT abdomen and pelvis on 08/03/2017- Postsurgical changes from prior partial colectomy. The fluid collection seen adjacent to the colectomy site is minimally bigger than on the prior examination. There is no evidence for leak of contrast into this fluid collection and there are several small pockets of air seen within the fluid collection. This is concerning for a possible abscess. -08/05/2017: Patient has no complaints this morning. -Currently on zosyn and vancomycin. -Tolerating a diet well, urinating appropriately. -Patient is status post a CT-guided placement of intra-abdominal fluid collection drain on 08/04/2017. FARIDEH drain functioning properly with approximately 10 mls of serosanguineous output during inspection. -Follow-up fluid analysis including cultures and Gram stain. -Antibiotic management per primary team. -We will continue to follow patient. Subjective Patient reports: no new complaints, feels better, pain is less, tolerating a regular diet, voiding w/o difficulty, flatus, bowel movement, afebrile Objective Vital Signs - Last 8 Hours Temp Pulse Resp BP Pulse Ox 08/05/17 07:35 99.0 F 90 16 121/76 96 08/05/17 03:40 98.1 F 87 15 118/73 97 Intake and Output 08/04/17 08/05/17 08/05/17 23:59 07:59 15:59 Intake Total 660 / 660 160 / 160 240 / 240 Output Total 280 / 280 215 / 215 245 / 245 Balance 380 / 380 -55 / -55 -5 / -5 Intake: IV Fluids 600 / 600 100 / 100 Zosyn 3.375 GM In 0.9 % Sodium 100 / 100 100 / 100 Chloride 100 ML @ 25 mls/hr IVPB Q8H [facility] Rx#:[id number] Vancocin 1,750 MG In 0.9 % 500 / 500 Sodium Chloride 500 ML @ 333. 333 mls/hr IVPB Q12H [facility] Rx#: [id number] Oral 60 / 60 60 / 60 240 / 240 Output: Urine 250 / 250 200 / 200 225 / 225 Wound Drainage Right Lower Back Other: Meal Breakfast Percent of Meal Consumed 100% # Voids 1 # Bowel Movements 0 Weight 89.6 kg Blood Glucose* 171 131 Patient Weight 08/05/17 23:59 Weight 89.6 kg - General physical appearance well developed, well nourished, no distress - Eyes PERRL, normal ocular movement - ENT dry mucosa - Neck Neck exam: no masses, trachea midline - Respiratory normal expansion, normal respiratory effort, clear to auscultation - Cardiovascular Cardiovascular exam: Present: RRR, no murmurs/rubs/gallops - Abdomen Abdomen: Present: bowel sounds present, soft, non tender (Patient with FARIDEH drain filled with approximately 10 mL of serosanguineous fluid. No surrounding erythema or induration at the site of drain exit from the abdominal cavity.) - Incision Incision: Present: clean and dry (Well-healing surgical incision from operation approximately 5 weeks ago.), intact - Integumentary no rash - Neurologic CN 2-12 grossly intact, normal coordination, normal sensation - Psychiatric oriented to time, oriented to person, oriented to place, speech is normal, memory intact - Labs 08/05/17 07:12 08/05/17 07:12 Diabetes panel 08/05/17 Range/Units 07:12 Sodium 135 L (136-145) mEq/L Potassium 3.8 (3.5-5.1) mEq/L Chloride 104 (98-107) mEq/L Carbon Dioxide 22 L (23-29) mEq/L BUN 5 L (6-20) mg/dL Creatinine 0.59 L (0.70-1.30) mg/dL Glucose 139 H (70-105) mg/dL Calcium 8.8 (8.6-10.3) mg/dL Calcium panel 08/05/17 Range/Units 07:12 Calcium 8.8 (8.6-10.3) mg/dL Pituitary panel 08/05/17 Range/Units 07:12 Sodium 135 L (136-145) mEq/L Potassium 3.8 (3.5-5.1) mEq/L Chloride 104 (98-107) mEq/L Carbon Dioxide 22 L (23-29) mEq/L BUN 5 L (6-20) mg/dL Creatinine 0.59 L (0.70-1.30) mg/dL Glucose 139 H (70-105) mg/dL Calcium 8.8 (8.6-10.3) mg/dL Adrenal panel 08/05/17 Range/Units 07:12 Sodium 135 L (136-145) mEq/L Potassium 3.8 (3.5-5.1) mEq/L Chloride 104 (98-107) mEq/L Carbon Dioxide 22 L (23-29) mEq/L BUN 5 L (6-20) mg/dL Creatinine 0.59 L (0.70-1.30) mg/dL Glucose 139 H (70-105) mg/dL Calcium 8.8 (8.6-10.3) mg/dL Consult Discharge Plan - Plan Referrals: Artemio Briggs DO [Primary Care Provider] - <Haris Brunner - Last Filed: 08/10/17 08:41> Date of Encounter: 08/05/17 Objective Vital Signs - Last 8 Hours Temp Pulse Resp BP Pulse Ox 08/10/17 05:40 98.2 F 98 16 128/87 94 08/10/17 00:52 18 92 Intake and Output 08/09/17 08/10/17 08/10/17 23:59 07:59 15:59 Intake Total 1440 / 1440 100 / 100 400 / 400 Output Total 0 / 0 510 / 510 Balance 1440 / 1440 -410 / -410 400 / 400 Intake: IV Fluids 400 / 400 100 / 100 400 / 400 Zyvox Premix 600mg/300mL 600 mg 300 / 300 300 / 300 In 300 ml @ 150 mls/hr IVPB Q12HR [facility] Rx#:[id number] Flagyl Premix 500 MG/100 ML 500 100 / 100 100 / 100 100 / 100 mg In 100 ml @ 100 mls/hr IVPB Q6HR [facility] Rx#:[id number] Oral 1040 / 1040 0 / 0 Output: Urine 0 / 0 500 / 500 Wound Drainage 0 / 0 10 / 10 Right Lower Back 0 / 0 10 / 10 Other: Meal Dinner Percent of Meal Consumed 100% # Voids 0 Blood Glucose* 146 142 - Labs 08/10/17 03:58 08/10/17 03:58 Diabetes panel 08/10/17 Range/Units 03:58 Sodium 141 (136-145) mEq/L Potassium 3.4 L (3.5-5.1) mEq/L Chloride 108 H (98-107) mEq/L Carbon Dioxide 23 (23-29) mEq/L BUN 12 (6-20) mg/dL Creatinine 0.95 (0.70-1.30) mg/dL Glucose 133 H (70-105) mg/dL Calcium 9.2 (8.6-10.3) mg/dL Calcium panel 08/10/17 Range/Units 03:58 Calcium 9.2 (8.6-10.3) mg/dL Pituitary panel 08/10/17 Range/Units 03:58 Sodium 141 (136-145) mEq/L Potassium 3.4 L (3.5-5.1) mEq/L Chloride 108 H (98-107) mEq/L Carbon Dioxide 23 (23-29) mEq/L BUN 12 (6-20) mg/dL Creatinine 0.95 (0.70-1.30) mg/dL Glucose 133 H (70-105) mg/dL Calcium 9.2 (8.6-10.3) mg/dL Adrenal panel 08/10/17 Range/Units 03:58 Sodium 141 (136-145) mEq/L Potassium 3.4 L (3.5-5.1) mEq/L Chloride 108 H (98-107) mEq/L Carbon Dioxide 23 (23-29) mEq/L BUN 12 (6-20) mg/dL Creatinine 0.95 (0.70-1.30) mg/dL Glucose 133 H (70-105) mg/dL Calcium 9.2 (8.6-10.3) mg/dL - Attending Attestation I examined this patient and my medical decision-making was reviewed with the Resident Physician. I agree with the documented findings, disposition and treatment plan as described except to the extent set forth below. The patient was seen and evaluated on morning rounds with rest. CAT scan draining is in place. He is receiving antibiotics. He should make a full recovery. We will continue current treatment plan. Haris Brunner MD FACS
--- NOTE | 2017-08-05 11:43 | Internal Med Progress Note ---
Date of Encounter: 08/05/17 Time of Encounter: 11:43 - Assessment and plan (1) Intra-abdominal collection Current Visit: Yes Status: Acute Assessment and plan: CT of abdomen and pelvis demonstrated the following: -Postsurgical changes from prior partial colectomy. -The fluid collection seen adjacent to the colectomy site is minimally bigger than on the prior examination. -There is no evidence for leak of contrast into this fluid collection and there are several small pockets of air seen within the fluid collection. -This is concerning for a possible abscess. Plan: -IR consulted for possible abscess drainage -Vancomycin 1500 mg IV Q12 -Zosyn 3.375 g IV Q8 -Cefepime 1000mg IV Q12 (2) SIRS (systemic inflammatory response syndrome) Current Visit: Yes Status: Acute Assessment and plan: Presented with fever, tachycardia, leukocytosis, possibly from recent surgery with intra-abdominal fluid collection Current white count is 17.2 Plan: -Vancomycin 1500 mg IV Q12 -Zosyn 3.375 g IV Q8 -Cefepime 1000mg IV Q12 -IR Consulted; Possible abscess drainage -ID consulted; would appreciate recommendations on antibiotic therapy (3) Thrombocytosis Current Visit: Yes Status: Acute Assessment and plan: Likely reactive; continue to monitor (4) COPD (chronic obstructive pulmonary disease) Current Visit: Yes Status: Chronic Assessment and plan: Not in acute exacerbation Continue bronchodilators and supplemental oxygen Qualifiers: COPD type: chronic bronchitis Chronic bronchitis type: simple Qualified Code(s): J41.0 - Simple chronic bronchitis (5) Diabetes mellitus Current Visit: Yes Status: Chronic Assessment and plan: Blood sugars well controlled -Continue Accu-Chek blood glucose monitoring with sliding scale insulin as needed -Diabetic clear liquid diet. 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 use Qualified Code(s): E11.8 - Type 2 diabetes mellitus with unspecified complications (6) Hypothyroid Current Visit: Yes Status: Chronic Assessment and plan: continue Levothyroxine Qualifiers: Hypothyroidism type: unspecified Qualified Code(s): E03.9 - Hypothyroidism , unspecified (7) HTN (hypertension) Current Visit: Yes Status: Chronic Qualifiers: Hypertension type: essential hypertension Qualified Code(s): I10 - Essential (primary) hypertension - Subjective Interval history: 57-year-old male with a PMH of arthritis, COPD, GERD, hypertension, thyroid disease who presented to the ED on 08/01/17 after undergoing cholecystectomy and 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 He was discharged with abx and bowel rest instructions. Patient reported that been experiencing fevers at home. He also had increasing abdominal pain with distention. Stated that this had been an ongoing issue for him since discharge approximately 10 days prior to admission. He denies any significant appetite at this point. Intermittent fevers and chills. Pain at a 9/10 at its worst. Patients pulse was elevated on presentation at 109 bpm. All other vital signs were within normal limits. CXR demonstrated the following: Middle lobe disease; possibly represents pneumonia and/or atelectasis. Vertically oriented linear opacity in the medial right lower lobe, likely atelectasis. CT abdomen and pelvis demonstrated the following: Status post cholecystectomy. Small amount of fluid within the gallbladder fossa and tracking along the edge of the liver, probably postsurgical. Postsurgical changes of the lower right colon with anastomotic sutures. Multiloculated fluid collection containing gas adjacent to the anastomotic sutures. Could represent an infectious process and/or an anastomotic leak. General Surgery was consulted for management and recommendations. CT of abdomen and pelvis was repeated on per the recommendation of general surgery. Repeat CT of abdomen demonstrated the following: Postsurgical changes from prior partial colectomy. The fluid collection seen adjacent to the colectomy site is minimally bigger than on the prior examination. There is no evidence for leak of contrast into this fluid collection and there are several small pockets of air seen within the fluid collection. This is concerning for a possible abscess. Per the recommendation of general surgery, IR was consulted for CT-guided aspiration of intraabdominal fluid collection. Blood CX were drawn; negative x 2. Patient seen and examined at bedside; reports some RLQ abdominal tenderness. - Constitutional Vitals: Temp Pulse Resp BP Pulse Ox 97.9 F 91 14 133/79 93 08/05/17 11:08 08/05/17 11:08 08/05/17 11:08 08/05/17 11:08 08/05/17 11:08 General appearance: Present: A&O X 3, answers questions appropriately - Head Head exam: Present: atraumatic, normocephalic - Eye Eye exam: Present: PERRL, conjuntiva pink, sclera anicteric Pupils: Present: PERRL - Neck Neck exam general surgery: Present: supple, trachea midline. Absent: lymphadenopathy - Respiratory Respiratory exam: Present: CTAB. Absent: accessory muscle use, rales, rhonchi, wheezes - Cardiovascular Cardiovascular exam: Present: RRR, +S1, +S2. Absent: diastolic murmur, gallop, rubs, systolic murmur - GI/Abdominal GI/Abdominal exam: Present: normal bowel sounds, soft, tenderness, no peritoneal signs. Absent: distended - Extremities Exam Extremities exam: Present: warm, radial pulses palpable and symmetrical. Absent : calf tenderness, cyanotic, pedal edema - Neurological Exam Neurological exam: Present: CN II-XII intact, oriented X3, no focal deficits. Absent: pronater drift, facial droop, speech deficit - Skin Skin exam: Present: dry, intact Internal Medicine: Result - Labs CBC & Chem 7: 08/05/17 07:12 08/05/17 07:12 Labs: Short CBC 08/05/17 Range/Units 07:12 WBC 10.2 (4.3-11.1) K/mcL Hgb 10.2 L (12.9-16.9) g/dL Hct 29.5 L (37.5-50.1) % Plt Count 633 H (140-400) K/mcL Neutrophils # 7.3 (1.6-8.9) K/mcL BMP 08/05/17 07:12 Sodium 135 L Potassium 3.8 Chloride 104 Carbon Dioxide 22 L BUN 5 L Creatinine 0.59 L Glucose 139 H Calcium 8.8 - Impressions Impressions Needle Aspiration CT 08/04/17 09:33 IMPRESSION: Successful CT guided placement of right abdominal abscess drainage catheter from a posterior approach. D/ / Nelson Sumner MD / Nelson Sumner MD Interpreting Provider: Nelson Sumner MD Consult Discharge Plan - Plan Referrals: Artemio Briggs, DO [Primary Care Provider] -
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
[2017-08-05] MEDS: *HR* LORazepam 0.5 MG TABLET PO PRN (20:12)
[2017-08-06] MEDS: carBAMazepine 200 MG TABLET PO SCH ×3 (00:38→17:10)
[2017-08-06] MEDS: traMADol 50 MG TABLET PO SCH ×4 (04:39→21:50)
[2017-08-06] MEDS: Ipratropium/Albuterol Neb 3 ML IH SCH ×4 (04:55→22:41)
[2017-08-06 05:53] LABS: Hematocrit 29.3 % (37.5-50.1); Hemoglobin 10.4 g/dL (12.9-16.9); Immature Granulocytes % 0.4 % (0-4); Lymphocytes % 18.9 %; Mean Corpuscular HGB Conc 35.5 g/dL (31.6-35.5); Mean Corpuscular Hemoglobin 29.9 pg (28.0-33.3); Mean Corpuscular Volume 84.2 fL (83.0-100.0); Mean Platelet Volume 9.7 fL (9.4-12.4); Platelet Count 708 K/mcL (140-400); Red Blood Count 3.48 M/mcL (4.19-5.50); Red Cell Distribution Width 14.9 % (11.5-14.5); Segmented Neutrophils % 65.7 %
[2017-08-06 05:54] LABS: Basophils # 0.1 K/mcL (0.0-0.2); Basophils % 0.9 %; Eosinophils # 0.3 K/mcL (0.0-0.6); Eosinophils % 2.9 %; Lymphocytes # 2.2 K/mcL (0.6-4.6); Monocytes # 1.3 K/mcL (0.0-1.3); Monocytes % 11.2 %; Neutrophils # 7.8 K/mcL (1.6-8.9)
[2017-08-06] MEDS: *HR* Enoxaparin 40 MG/0.4 ML SYRINGE SQ SCH (06:04)
[2017-08-06 06:33] LABS: BUN/Creatinine Ratio 7 (6-26); Blood Urea Nitrogen 7 mg/dL (6-20); Calcium 9.4 mg/dL (8.6-10.3); Carbon Dioxide 24 mEq/L (23-29); Chloride 107 mEq/L (98-107); Glucose 128 mg/dL (70-105); Osmolality,Calculated 290 (280-300); Potassium 3.6 mEq/L (3.5-5.1); Sodium 140 mEq/L (136-145); eGFR For African Americans > 60 (> 60); eGFR For Non-African Americans > 60 (> 60)
--- NOTE | 2017-08-06 06:58 | Internal Med Progress Note ---
<Shukri Kline - Last Filed: 08/06/17 15:29> Date of Encounter: 08/06/17 Time of Encounter: 09:46 - Assessment and plan (1) Intra-abdominal collection Current Visit: Yes Status: Acute Assessment and plan: CT of abdomen and pelvis demonstrated the following: -Postsurgical changes from prior partial colectomy. -The fluid collection seen adjacent to the colectomy site is minimally bigger than on the prior examination. -There is no evidence for leak of contrast into this fluid collection and there are several small pockets of air seen within the fluid collection. Patient is s/p drainage; fluid was cultured, grew GNRs Plan: -Zosyn 3.375 g IV Q8 -Blood CX pending; will tailor abx based on results (2) SIRS (systemic inflammatory response syndrome) Current Visit: Yes Status: Acute Assessment and plan: Presented with fever, tachycardia, leukocytosis, possibly from recent surgery with intra-abdominal fluid collection Plan: -Zosyn 3.375 g IV Q8 (3) Thrombocytosis Current Visit: Yes Status: Acute Assessment and plan: Likely reactive; continue to monitor (4) COPD (chronic obstructive pulmonary disease) Current Visit: Yes Status: Chronic Assessment and plan: Not in acute exacerbation Continue bronchodilators and supplemental oxygen Qualifiers: COPD type: chronic bronchitis Chronic bronchitis type: simple Qualified Code(s): J41.0 - Simple chronic bronchitis (5) Diabetes mellitus Current Visit: Yes Status: Chronic Assessment and plan: Blood sugars well controlled -Continue Accu-Chek blood glucose monitoring with sliding scale insulin as needed -Diabetic clear liquid diet. Qualifiers: Diabetes mellitus type: type 2 Diabetes mellitus complication status: with unspecified complications Diabetes mellitus parts counterman insulin use: without nursing home use Qualified Code(s): E11.8 - Type 2 diabetes mellitus with unspecified complications (6) Hypothyroid Current Visit: Yes Status: Chronic Assessment and plan: continue Levothyroxine Qualifiers: Hypothyroidism type: unspecified Qualified Code(s): E03.9 - Hypothyroidism , unspecified (7) HTN (hypertension) Current Visit: Yes Status: Chronic Qualifiers: Hypertension type: essential hypertension Qualified Code(s): I10 - Essential (primary) hypertension - Subjective Interval history: Patient was seen and examined at bedside this morning. Reports feeling well today. Admits to having some fatigue and abdominal pain. No further complaints. - Constitutional Vitals: Temp Pulse Resp BP Pulse Ox 98.7 F 87 16 135/85 93 08/06/17 05:47 08/06/17 05:47 08/06/17 05:47 08/06/17 05:47 08/06/17 05:47 General appearance: Present: A&O X 3, answers questions appropriately - Head Head exam: Present: atraumatic, normocephalic - Eye Eye exam: Present: PERRL, conjuntiva pink, sclera anicteric Pupils: Present: PERRL - Neck Neck exam general surgery: Present: supple, trachea midline. Absent: lymphadenopathy - Respiratory Respiratory exam: Present: CTAB. Absent: accessory muscle use, rales, rhonchi, wheezes - Cardiovascular Cardiovascular exam: Present: RRR, +S1, +S2. Absent: diastolic murmur, gallop, rubs, systolic murmur - GI/Abdominal GI/Abdominal exam: Present: normal bowel sounds, soft, no peritoneal signs. Absent: distended, tenderness - Extremities Exam Extremities exam: Present: warm, radial pulses palpable and symmetrical. Absent : calf tenderness, cyanotic, pedal edema - Neurological Exam Neurological exam: Present: CN II-XII intact, oriented X3, no focal deficits. Absent: pronater drift, facial droop, speech deficit - Skin Skin exam: Present: dry, intact Internal Medicine: Result - Labs CBC & Chem 7: 08/06/17 05:24 08/06/17 05:24 Labs: Short CBC 08/05/17 08/06/17 Range/Units 07:12 05:24 WBC 10.2 11.9 H (4.3-11.1) K/mcL Hgb 10.2 L 10.4 L (12.9-16.9) g/dL Hct 29.5 L 29.3 L (37.5-50.1) % Plt Count 633 H 708 H (140-400) K/mcL Neutrophils # 7.3 7.8 (1.6-8.9) K/mcL BMP 08/05/17 08/06/17 07:12 05:24 Sodium 135 L 140 Potassium 3.8 3.6 Chloride 104 107 Carbon Dioxide 22 L 24 BUN 5 L 7 Creatinine 0.59 L 1.02 Glucose 139 H 128 H Calcium 8.8 9.4 Consult Discharge Plan - Plan Referrals: Artemio Briggs, DO [Primary Care Provider] - <Ernesto Campoverde - Last Filed: 08/06/17 17:26> Date of Encounter: 08/06/17 - Constitutional Vitals: Temp Pulse Resp BP Pulse Ox 98.2 F 91 18 149/70 97 08/06/17 14:02 08/06/17 14:02 08/06/17 15:39 08/06/17 14:02 08/06/17 15:39 Internal Medicine: Result - Labs CBC & Chem 7: 08/06/17 05:24 08/06/17 05:24 Labs: Short CBC 08/06/17 Range/Units 05:24 WBC 11.9 H (4.3-11.1) K/mcL Hgb 10.4 L (12.9-16.9) g/dL Hct 29.3 L (37.5-50.1) % Plt Count 708 H (140-400) K/mcL Neutrophils # 7.8 (1.6-8.9) K/mcL BMP 08/06/17 05:24 Sodium 140 Potassium 3.6 Chloride 107 Carbon Dioxide 24 BUN 7 Creatinine 1.02 Glucose 128 H Calcium 9.4 - Impressions Impressions Abdomen/Pelvis CT 08/03/17 07:30 IMPRESSION: Postsurgical changes from prior partial colectomy. The fluid collection seen adjacent to the colectomy site is minimally bigger than on the prior examination. There is no evidence for leak of contrast into this fluid collection and there are several small pockets of air seen within the fluid collection. This is concerning for a possible abscess. D/ / 08/03/2017 09:07:00 Ryland Ramírez MD / isaac Interpreting Provider: Ryland Ramírez MD - Attending Attestation I examined this patient and my medical decision-making was reviewed with the Resident Physician. I agree with the documented findings, disposition and treatment plan as described except to the extent set forth below. He is doing better, Once the gram - renee is ID'd, then can fine tune antbiotics. Surgery is watching the drain and the outputs
[2017-08-06] MEDS: Insulin LISPRO 300 UNITS/3 ML VIAL SQ SCH ×4 (08:31→21:34)
[2017-08-06] MEDS: *HR* OxyCODONE Immed Rel 5 MG TABLET PO PRN (08:45)
[2017-08-06] MEDS ORDERED: Aminoglycoside Consult 1 EACH MC ONE (08:53)
[2017-08-06] MEDS: Sennosides/Docusate Sodium TABLET PO PRN (10:18)
--- NOTE | 2017-08-06 11:14 | Infectious Disease Progress No ---
Date of Encounter: 08/06/17 Time of Encounter: 11:12 - Assessment and Plan (1) Sepsis Current Visit: Yes Status: Acute The patient had two SIRS criteria on admission. Likely secondary to intra-abdominal abscess and inadequate source control. Improved. WBC has normalized and tachycardia has improved. Hes has been afebrile x 48 hours. Blood cultures drawn 07/31/17 are negative x 2 sets. Qualifiers: Sepsis type: sepsis due to unspecified organism Qualified Code(s): A41.9 - Sepsis, unspecified organism (2) Intra-abdominal collection Current Visit: Yes Status: Acute Likely secondary to anastamosis leak. Causative organism unclear. 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 CT of the abdomen and pelvis 07/31/17 showed an abscess adjacent to the right lower colon anastamosis site. Repeat CT of the abdomen and pelvis 08/03/17 showed that the fluid collection was a little bit bigger. IR consulted 08/04/16. Status post CT-guided aspiration of the abscess with drain placement. 55ml pus aspirated. Gram stain shows few GNR, final ID and sensitivities are pending. I spoke with micro and we should have a final ID later today or tomorrow morning. General surgery consulted and following. Clinically, the patient has improved since having the drain placed. Continue Vancomycin IV. Pharmacy to dose. Goal trough ~15. Vanc trough 11.5 on . Continue Zosyn 3.375 grams IV Q8H. Await cultures and de-escalate if/when able. Duration of treatment depends on the clinical picture. Monitor renal function and for drug toxicity and dose-adjust antibiotics. 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 CT of the abdomen and pelvis completed 07/21/17 showed findings consistent with anastamosis breakdown, but no abscess. CT of the abdomen and pelvis completed 07/31/17 showed findings consistent with abscess adjacent to the right lower colon anastamosis. Repeat CT of the abdomen and pelvis completed 08/03/17 showed that the abscess was a little larger, but did not show any leakage of contrast from the bowel into the abscess. General surgery consulted and following. (4) Abdominal pain Current Visit: No Status: Acute Likely secondary to intra-abdominal abscess. Improved. Pain management per the primary team Qualifiers: Abdominal location: generalized Qualified Code(s): R10.84 - Generalized abdominal pain (5) Thrombocytosis Current Visit: Yes Status: Acute Likely reactive from infectious etiology. Continue to trend. (6) Status post cholecystectomy Current Visit: Yes Status: Acute Status post open cholecystectomy with FARIDEH drain placement in the subhepatic abscess 07/03/[address] Brunner. (7) Status post right hemicolectomy Current Visit: Yes Status: Acute (8) COPD (chronic obstructive pulmonary disease) Current Visit: Yes Status: Chronic Qualifiers: COPD type: chronic bronchitis Chronic bronchitis type: simple Qualified Code(s): J41.0 - Simple chronic bronchitis (9) Diabetes mellitus Current Visit: Yes Status: Chronic Recommend aggressive glucose monitoring and control to promote wound healing and prevent re-infection. Management per the primary team. Qualifiers: Diabetes mellitus type: type 2 Diabetes mellitus complication status: with unspecified complications Diabetes mellitus assistant terminal manager insulin use: without correction use Qualified Code(s): E11.8 - Type 2 diabetes mellitus with unspecified complications - Subjective Interval history: Patient seen and examined. No acute events noted overnight. Patient sitting up in the bedside chair. States overall he feels better today. Denies any fevers or chills or rigors. Denies any chest pain. States his shortness of breath is at baseline. Denies cough. Denies any nausea or vomiting or diarrhea. States not had a bowel movement in 3 days. Reports abdominal pain with radiation around to the right flank where the drain is placed. Denies changes in his appetite or urinary complaints. Denies oral thrush or new skin lesions. According to the nursing notes, the patient refused his IV vancomycin last night. Infect Dis PN-Objective Data - Labs CBC & Chem 7: 08/06/17 05:24 08/06/17 05:24 Labs: Laboratory Results - last 24 hr 08/05/17 08/05/17 08/05/17 11:16 16:16 20:38 WBC RBC Hgb Hct MCV MCH MCHC RDW Plt Count MPV Immature Gran % Seg Neutrophils % Lymphocytes % Monocytes % Eosinophils % Basophils % Neutrophils # Lymphocytes # Monocytes # Eosinophils # Basophils # Sodium Potassium Chloride Carbon Dioxide BUN Creatinine Est GFR ( Amer) Est GFR (Non-Af Amer) BUN/Creatinine Ratio Glucose POC Glucose 194 H 117 H 196 H Calculated Osmolality Calcium Vancomycin Trough 08/06/17 08/06/17 08/06/17 05:24 05:24 05:24 WBC 11.9 H RBC 3.48 L Hgb 10.4 L Hct 29.3 L MCV 84.2 MCH 29.9 MCHC 35.5 RDW 14.9 H Plt Count 708 H MPV 9.7 Immature Gran % 0.4 Seg Neutrophils % 65.7 Lymphocytes % 18.9 Monocytes % 11.2 Eosinophils % 2.9 Basophils % 0.9 Neutrophils # 7.8 Lymphocytes # 2.2 Monocytes # 1.3 Eosinophils # 0.3 Basophils # 0.1 Sodium 140 Potassium 3.6 Chloride 107 Carbon Dioxide 24 BUN 7 Creatinine 1.02 Est GFR ( Amer) > 60 Est GFR (Non-Af Amer) > 60 BUN/Creatinine Ratio 7 Glucose 128 H POC Glucose Calculated Osmolality 290 Calcium 9.4 Vancomycin Trough 19.7 08/06/17 07:32 WBC RBC Hgb Hct MCV MCH MCHC RDW Plt Count MPV Immature Gran % Seg Neutrophils % Lymphocytes % Monocytes % Eosinophils % Basophils % Neutrophils # Lymphocytes # Monocytes # Eosinophils # Basophils # Sodium Potassium Chloride Carbon Dioxide BUN Creatinine Est GFR ( Amer) Est GFR (Non-Af Amer) BUN/Creatinine Ratio Glucose POC Glucose 115 H Calculated Osmolality Calcium Vancomycin Trough Cultures: Cultures 08/04/17 16:20 Blood Culture - Preliminary Peripheral Venipuncture No growth. 08/04/17 16:20 Blood Culture - Preliminary Peripheral Venipuncture No growth. 08/04/17 10:15 Body Fluid Culture - Preliminary Other-Specify in Comments Gram Negative Anup 08/04/17 10:15 Gram Stain - Final Abdomen Exam - Constitutional Vitals: Temp Pulse Resp BP Pulse Ox 98.6 F 96 16 139/66 94 08/06/17 10:05 08/06/17 10:05 08/06/17 10:05 08/06/17 10:05 08/06/17 10:05 General appearance: average body habitus, cooperative, no acute distress - Head Head exam: Present: atraumatic, normal inspection, normocephalic - Eye Eye exam: Present: EOMI, normal appearance, PERRL Pupils: Present: normal accommodation - ENT ENT exam: Present: mucous membranes moist - Neck Neck exam: Present: normal inspection - Respiratory Respiratory exam: Present: CTAB. Absent: rales, respiratory distress, rhonchi, wheezes - Cardiovascular Cardiovascular exam: Present: RRR, +S1, +S2 - GI/Abdominal GI/Abdominal exam: Present: normal bowel sounds, soft, tenderness (Generalized, worse in the right lower quadrant). Absent: distended Additional comments: Well-healed surgical scar noted to the midline abdomen without redness, warmth, or drainage. - Extremities Exam Extremities exam: Present: normal inspection. Absent: joint swelling, pedal edema, tenderness - Back Exam Back exam: Present: CVA tenderness (R) (Tenderness noted at the FARIDEH drain site.) Additional comments: FARIDEH drain noted to be draining moderate amount of seropurulent drainage. - Neurological Exam Neurological exam: Present: alert, oriented X3, no focal deficits - Psychiatric Psychiatric exam: Present: normal affect, normal mood - Skin Skin exam: Present: dry, intact, normal color, warm Consult Discharge Plan - Plan Referrals: Artemio Briggs, DO [Primary Care Provider] - - Attending Attestation I examined this patient and my medical decision-making was reviewed with the Resident Physician. I agree with the documented findings, disposition and treatment plan as described except to the extent set forth below.
--- NOTE | 2017-08-06 14:23 | General Surgery Progress Note ---
<BoJudith Annetta - Last Filed: 08/06/17 14:43> Date of Encounter: 08/06/17 Time of Encounter: 14:23 - Assessment and Plan (1) Intra-abdominal collection Current Visit: Yes Status: Acute s/p Posterior drain placement per IR with notable return of 55 ml pus (final path per cultures pending) FARIDEH bulb with aprox 10 ml purulent material (foul odor noted). He states his abdominal discomfort has somewhat improved. His abdominal exam is otherwise benign. Plan: Repeat CT in am to asses interval change in fluid collection ATBX per ID Hospital course per primary team Subjective Narrative: Mr. López stated he did "not feel any better." Upon further interview, he states his abdomen feels "a little better, but they changed my antibiotics and now I am getting sick again and my white count has gone up." He does not specify any new or worsening symptoms. He denies n/v/d or worsening abdominal discomfort Objective Vital Signs - Last 8 Hours Temp Pulse Resp BP Pulse Ox 08/06/17 14:02 98.2 F 91 16 149/70 92 08/06/17 11:01 20 97 08/06/17 10:05 98.6 F 96 16 139/66 94 08/06/17 07:29 93 Intake and Output 08/05/17 08/06/17 08/06/17 23:59 07:59 15:59 Intake Total 1060 / 1060 100 / 100 1530 / 1530 Output Total 420 / 420 575 / 575 605 / 605 Balance 640 / 640 -475 / -475 925 / 925 Intake: IV Fluids 100 / 100 100 / 100 350 / 350 Zosyn 3.375 GM In 0.9 % Sodium 100 / 100 100 / 100 100 / 100 Chloride 100 ML @ 25 mls/hr IVPB Q8H JERILYN Rx#:[id number] Vancocin 1,250 MG In 0.9 % 250 / 250 Sodium Chloride 250 ML @ 166.67 mls/hr IVPB Q12H JERILYN Rx#: [id number] Oral 960 / 960 1180 / 1180 Output: Urine 400 / 400 575 / 575 575 / 575 Wound Drainage 20 / 20 0 / 0 30 / 30 Right Lower Back 20 / 20 0 / 0 30 / 30 Other: Meal Dinner Lunch Percent of Meal Consumed 100% 50% # Bowel Movements 0 0 Blood Glucose* 196 115 157 - General physical appearance no distress, no pain (Resting, reclined in the bed, watching TV upon entering room.) - Eyes normal ocular movement - ENT atraumatic, normocephalic - Neck Neck exam: trachea midline, no venous distension - Respiratory other (decreased) - Cardiovascular Cardiovascular exam: Present: RRR - Abdomen Abdomen: Present: bowel sounds present, soft, non tender Hernia: none - Integumentary no abnormal pigmentation - Neurologic CN 2-12 grossly intact, normal coordination, normal sensation - Musculoskeletal normal posture - Psychiatric oriented to time, oriented to person, oriented to place, speech is normal, memory intact - Labs 08/06/17 05:24 08/06/17 05:24 Diabetes panel 08/06/17 Range/Units 05:24 Sodium 140 (136-145) mEq/L Potassium 3.6 (3.5-5.1) mEq/L Chloride 107 (98-107) mEq/L Carbon Dioxide 24 (23-29) mEq/L BUN 7 (6-20) mg/dL Creatinine 1.02 (0.70-1.30) mg/dL Glucose 128 H (70-105) mg/dL Calcium 9.4 (8.6-10.3) mg/dL Calcium panel 08/06/17 Range/Units 05:24 Calcium 9.4 (8.6-10.3) mg/dL Pituitary panel 08/06/17 Range/Units 05:24 Sodium 140 (136-145) mEq/L Potassium 3.6 (3.5-5.1) mEq/L Chloride 107 (98-107) mEq/L Carbon Dioxide 24 (23-29) mEq/L BUN 7 (6-20) mg/dL Creatinine 1.02 (0.70-1.30) mg/dL Glucose 128 H (70-105) mg/dL Calcium 9.4 (8.6-10.3) mg/dL Adrenal panel 08/06/17 Range/Units 05:24 Sodium 140 (136-145) mEq/L Potassium 3.6 (3.5-5.1) mEq/L Chloride 107 (98-107) mEq/L Carbon Dioxide 24 (23-29) mEq/L BUN 7 (6-20) mg/dL Creatinine 1.02 (0.70-1.30) mg/dL Glucose 128 H (70-105) mg/dL Calcium 9.4 (8.6-10.3) mg/dL Consult Discharge Plan - Plan Referrals: Artemio Briggs DO [Primary Care Provider] - <Haris Brunner - Last Filed: 08/10/17 08:50> Date of Encounter: 08/06/17 Objective Vital Signs - Last 8 Hours Temp Pulse Resp BP Pulse Ox 08/10/17 05:40 98.2 F 98 16 128/87 94 08/10/17 00:52 18 92 Intake and Output 08/09/17 08/10/17 08/10/17 23:59 07:59 15:59 Intake Total 1440 / 1440 100 / 100 400 / 400 Output Total 0 / 0 510 / 510 Balance 1440 / 1440 -410 / -410 400 / 400 Intake: IV Fluids 400 / 400 100 / 100 400 / 400 Zyvox Premix 600mg/300mL 600 mg 300 / 300 300 / 300 In 300 ml @ 150 mls/hr IVPB Q12HR JERILYN Rx#:[id number] Flagyl Premix 500 MG/100 ML 500 100 / 100 100 / 100 100 / 100 mg In 100 ml @ 100 mls/hr IVPB Q6HR JERILYN Rx#:[id number] Oral 1040 / 1040 0 / 0 Output: Urine 0 / 0 500 / 500 Wound Drainage 0 / 0 10 / 10 Right Lower Back 0 / 0 10 / 10 Other: Meal Dinner Percent of Meal Consumed 100% # Voids 0 Blood Glucose* 146 142 - Labs 08/10/17 03:58 08/10/17 03:58 Diabetes panel 08/10/17 Range/Units 03:58 Sodium 141 (136-145) mEq/L Potassium 3.4 L (3.5-5.1) mEq/L Chloride 108 H (98-107) mEq/L Carbon Dioxide 23 (23-29) mEq/L BUN 12 (6-20) mg/dL Creatinine 0.95 (0.70-1.30) mg/dL Glucose 133 H (70-105) mg/dL Calcium 9.2 (8.6-10.3) mg/dL Calcium panel 08/10/17 Range/Units 03:58 Calcium 9.2 (8.6-10.3) mg/dL Pituitary panel 08/10/17 Range/Units 03:58 Sodium 141 (136-145) mEq/L Potassium 3.4 L (3.5-5.1) mEq/L Chloride 108 H (98-107) mEq/L Carbon Dioxide 23 (23-29) mEq/L BUN 12 (6-20) mg/dL Creatinine 0.95 (0.70-1.30) mg/dL Glucose 133 H (70-105) mg/dL Calcium 9.2 (8.6-10.3) mg/dL Adrenal panel 08/10/17 Range/Units 03:58 Sodium 141 (136-145) mEq/L Potassium 3.4 L (3.5-5.1) mEq/L Chloride 108 H (98-107) mEq/L Carbon Dioxide 23 (23-29) mEq/L BUN 12 (6-20) mg/dL Creatinine 0.95 (0.70-1.30) mg/dL Glucose 133 H (70-105) mg/dL Calcium 9.2 (8.6-10.3) mg/dL - Attending Attestation I have personally performed a face to face evaluation on this patient. I have reviewed and agree with the care plan. History and Exam by me shows: The patient was seen and evaluated on morning rounds. The clinical information was discussed the clinical nurse practitioner. He continues to have CAT scan drain in place and is responding well to drainage. Continue IV antibiotics and CAT scan drain. Haris Brunner MD FACS
[2017-08-07] MEDS: *HR* LORazepam 0.5 MG TABLET PO PRN (00:29)
[2017-08-07] MEDS: carBAMazepine 200 MG TABLET PO SCH ×4 (00:29→23:48)
[2017-08-07] MEDS: Ipratropium/Albuterol Neb 3 ML IH SCH ×4 (04:46→22:28)
[2017-08-07] MEDS: *HR* Enoxaparin 40 MG/0.4 ML SYRINGE SQ SCH (05:23)
[2017-08-07] MEDS: traMADol 50 MG TABLET PO SCH ×4 (05:23→21:28)
[2017-08-07] MEDS: Insulin LISPRO 300 UNITS/3 ML VIAL SQ SCH ×4 (07:50→21:18)
[2017-08-07] MEDS ORDERED: Vancomycin 1 EACH in 0.9 % Sodium Chloride 250 ML IVPB SCH (11:00)
[2017-08-07] MEDS: MetroNIDAZOLE 500 MG/100 ML 500 MG/100 ML BAG IVPB SCH ×3 (11:51→23:48)
[2017-08-07] MEDS: Sennosides/Docusate Sodium TABLET PO PRN (11:51)
[2017-08-07] MEDS: cefTRIAXone 2,000 MG in Water for inj. (sterile) 20 ML 20 ML IVP SCH (11:51)
[2017-08-07] MEDS ORDERED: cefTRIAXone 2,000 MG in Water for inj. (sterile) 20 ML IVP SCH (12:00)
--- NOTE | 2017-08-07 13:05 | Internal Med Progress Note ---
Date of Encounter: 08/07/17 Time of Encounter: 13:02 - Assessment and plan (1) HTN (hypertension) Current Visit: Yes Status: Chronic Assessment and plan: Chronic and well controlled Qualifiers: Hypertension type: essential hypertension Qualified Code(s): I10 - Essential (primary) hypertension (2) COPD (chronic obstructive pulmonary disease) Current Visit: Yes Status: Chronic Assessment and plan: Chronic no active wheezing Qualifiers: COPD type: chronic bronchitis Chronic bronchitis type: simple Qualified Code(s): J41.0 - Simple chronic bronchitis (3) Diabetes mellitus Current Visit: Yes Status: Chronic Assessment and plan: Chronic continue sliding scale Qualifiers: Diabetes mellitus type: type 2 Diabetes mellitus complication status: with unspecified complications Diabetes mellitus skilled nursing insulin use: without skilled nursing use Qualified Code(s): E11.8 - Type 2 diabetes mellitus with unspecified complications (4) Intra-abdominal collection Current Visit: Yes Status: Acute Assessment and plan: Intra-abdominal collection found to the abscess status post drainage by interventional radiology culture growing Escherichia coli will continue Rocephin (5) Thrombocytosis Current Visit: Yes Status: Acute Assessment and plan: Appear to be reactive (6) Status post cholecystectomy Current Visit: Yes Status: Acute Assessment and plan: cholecystectomy - Subjective Interval history: Patient with history of COPD, GERD, hypertension, had a recent cholecystectomy and right colon resection and discharged patient return with fever, increased abdominal pain ,noted by CT to have an intra-abdominal collection found to be abscess ,,,,,patient underwent drainage by the interventional radiology fluid growing Escherichia coli antibiotic has been changed from vancomycin and Zosyn to Rocephin which is sensitive to Rocephin CT of the abdomen today shows much improved inflammation of the abdomen with no new abscess at present patient clinically says he is doing better - Constitutional Vitals: Temp Pulse Resp BP Pulse Ox 97.5 F L 85 16 120/78 95 08/07/17 12:22 08/07/17 12:22 08/07/17 12:22 08/07/17 12:22 08/07/17 12:22 General appearance: Present: A&O X 3, answers questions appropriately - Eye Eye exam: Present: PERRL, conjuntiva pink, sclera anicteric Pupils: Present: PERRL - Neck Neck exam general surgery: Present: supple, trachea midline. Absent: lymphadenopathy - Respiratory Respiratory exam: Present: CTAB. Absent: accessory muscle use, rales, rhonchi, wheezes - Cardiovascular Cardiovascular exam: Present: RRR, +S1, +S2. Absent: diastolic murmur, gallop, rubs, systolic murmur - GI/Abdominal GI/Abdominal exam: Present: tenderness Internal Medicine: Result - Labs CBC & Chem 7: 08/06/17 05:24 08/06/17 05:24 - Impressions Impressions Abdomen/Pelvis CT 08/03/17 07:30 IMPRESSION: Postsurgical changes from prior partial colectomy. The fluid collection seen adjacent to the colectomy site is minimally bigger than on the prior examination. There is no evidence for leak of contrast into this fluid collection and there are several small pockets of air seen within the fluid collection. This is concerning for a possible abscess. D/ / 08/03/2017 09:07:00 Ryland Ramírez MD / isaac Interpreting Provider: Ryland Ramírez MD Abdomen/Pelvis CT 08/07/17 09:30 IMPRESSION: 1. Much decreased inflammation right lower abdomen status pigtail catheter drainage of abscess with only a single small residual fluid collection along the superior aspect of the previous abscess site. 2. No new abscess formation is evident. 3. Cholecystectomy. D/ / Roc Zavala / Roc Zavala Interpreting Provider: Roc Zavala Consult Discharge Plan - Plan Referrals: Artemio Briggs DO [Primary Care Provider] -
[2017-08-07 13:40] LABS: eGFR For African Americans > 60 (> 60); eGFR For Non-African Americans > 60 (> 60)
--- NOTE | 2017-08-07 15:48 | General Surgery Progress Note ---
<Judith Soriano Annetta - Last Filed: 08/07/17 15:44> Date of Encounter: 08/07/17 Time of Encounter: 12:30 - Assessment and Plan (1) Intra-abdominal collection Current Visit: Yes Status: Acute s/p Posterior drain placement per IR with notable return of 55 ml pus (final path per cultures pending) FARIDEH bulb with aprox 10 ml purulent material (foul odor noted). He states his abdominal discomfort has somewhat improved. His abdominal exam is otherwise benign. Plan: Repeat CT with significant reduction in abscess. ATBX per ID Hospital course per primary team (from a surgical standpoint patient will likely be ready for d/c Thursday pending no changes). Subjective Patient reports: no new complaints, feels better, still having pain, pain is less, tolerating a regular diet, voiding w/o difficulty, flatus, bowel movement , afebrile Objective Vital Signs - Last 8 Hours Temp Pulse Resp BP Pulse Ox 08/07/17 12:22 97.5 F L 85 16 120/78 95 Intake and Output 08/06/17 08/07/17 08/07/17 23:59 07:59 15:59 Intake Total 460 / 460 0 / 0 370 / 370 Output Total 570 / 570 1200 / 1200 Balance -110 / -110 -1200 / -1200 362 / 362 Intake: IV Fluids 100 / 100 370 / 370 Rocephin 2,000 MG In Water for inj. (sterile) 20 ML @ 600 mls/ hr IVP Q24H [facility] Rx#:[id number] Flagyl Premix 500 MG/100 ML 500 100 / 100 mg In 100 ml @ 100 mls/hr IVPB Q6HR [facility] Rx#:[id number] Zosyn 3.375 GM In 0.9 % Sodium 100 / 100 Chloride 100 ML @ 25 mls/hr IVPB Q8H [facility] Rx#:[id number] Vancocin 1,500 MG In 0.9 % 250 / 250 Sodium Chloride 250 ML @ 166.67 mls/hr IVPB NOW [facility] Rx#: [id number] Oral 360 / 360 0 / 0 Output: Urine 550 / 550 1200 / 1200 Wound Drainage Right Lower Back Other: Meal Dinner Percent of Meal Consumed 100% # Bowel Movements 0 Blood Glucose* 156 121 118 - General physical appearance no distress, no pain - Eyes normal ocular movement - ENT atraumatic, normocephalic - Neck Neck exam: no masses, no venous distension - Respiratory normal expansion, normal respiratory effort, clear to auscultation - Cardiovascular Cardiovascular exam: Present: RRR - Abdomen Abdomen: Present: bowel sounds present, soft, tender (Expected) Hernia: none - Incision Incision: Present: clean and dry, intact - Integumentary no abnormal pigmentation - Neurologic normal coordination, normal sensation - Musculoskeletal normal posture - Psychiatric oriented to time, oriented to person, oriented to place, speech is normal, memory intact - Labs 08/06/17 05:24 08/07/17 12:10 Diabetes panel 08/07/17 Range/Units 12:10 Creatinine 0.96 (0.70-1.30) mg/dL Pituitary panel 08/07/17 Range/Units 12:10 Creatinine 0.96 (0.70-1.30) mg/dL Adrenal panel 08/07/17 Range/Units 12:10 Creatinine 0.96 (0.70-1.30) mg/dL - Imaging CT scan - abdomen: report reviewed, image reviewed CT scan - pelvis: report reviewed, image reviewed Consult Discharge Plan - Plan Referrals: Artemio Briggs, [Primary Care Provider] - <Haris Brunner - Last Filed: 08/10/17 08:53> Date of Encounter: 08/07/17 Objective Vital Signs - Last 8 Hours Temp Pulse Resp BP Pulse Ox 08/10/17 05:40 98.2 F 98 16 128/87 94 Intake and Output 08/09/17 08/10/17 08/10/17 23:59 07:59 15:59 Intake Total 1440 / 1440 100 / 100 400 / 400 Output Total 0 / 0 510 / 510 Balance 1440 / 1440 -410 / -410 400 / 400 Intake: IV Fluids 400 / 400 100 / 100 400 / 400 Zyvox Premix 600mg/300mL 600 mg 300 / 300 300 / 300 In 300 ml @ 150 mls/hr IVPB Q12HR [facility] Rx#:[id number] Flagyl Premix 500 MG/100 ML 500 100 / 100 100 / 100 100 / 100 mg In 100 ml @ 100 mls/hr IVPB Q6HR [facility] Rx#:[id number] Oral 1040 / 1040 0 / 0 Output: Urine 0 / 0 500 / 500 Wound Drainage 0 / 0 Right Lower Back 0 / 0 Other: Meal Dinner Percent of Meal Consumed 100% # Voids 0 Blood Glucose* 146 142 - Labs 08/10/17 03:58 08/10/17 03:58 Diabetes panel 08/10/17 Range/Units 03:58 Sodium 141 (136-145) mEq/L Potassium 3.4 L (3.5-5.1) mEq/L Chloride 108 H (98-107) mEq/L Carbon Dioxide 23 (23-29) mEq/L BUN 12 (6-20) mg/dL Creatinine 0.95 (0.70-1.30) mg/dL Glucose 133 H (70-105) mg/dL Calcium 9.2 (8.6-10.3) mg/dL Calcium panel 08/10/17 Range/Units 03:58 Calcium 9.2 (8.6-10.3) mg/dL Pituitary panel 08/10/17 Range/Units 03:58 Sodium 141 (136-145) mEq/L Potassium 3.4 L (3.5-5.1) mEq/L Chloride 108 H (98-107) mEq/L Carbon Dioxide 23 (23-29) mEq/L BUN 12 (6-20) mg/dL Creatinine 0.95 (0.70-1.30) mg/dL Glucose 133 H (70-105) mg/dL Calcium 9.2 (8.6-10.3) mg/dL Adrenal panel 08/10/17 Range/Units 03:58 Sodium 141 (136-145) mEq/L Potassium 3.4 L (3.5-5.1) mEq/L Chloride 108 H (98-107) mEq/L Carbon Dioxide 23 (23-29) mEq/L BUN 12 (6-20) mg/dL Creatinine 0.95 (0.70-1.30) mg/dL Glucose 133 H (70-105) mg/dL Calcium 9.2 (8.6-10.3) mg/dL - Attending Attestation I have personally performed a face to face evaluation on this patient. I have reviewed and agree with the care plan. History and Exam by me shows: The patient is seen and evaluated in the morning rounds. He is doing quite well with CAT scan drainage and antibiotics. We will continue current treatment plan. Findings were discussed clinical nurse practitioner. Haris Brunner MD FACS
[2017-08-07 17:29] LABS: Hematocrit 32.5 % (37.5-50.1); Hemoglobin 11.2 g/dL (12.9-16.9); Immature Platelets 1.5 % (1.1-6.1); Mean Corpuscular HGB Conc 34.5 g/dL (31.6-35.5); Mean Corpuscular Hemoglobin 29.3 pg (28.0-33.3); Mean Corpuscular Volume 85.1 fL (83.0-100.0); Mean Platelet Volume 9.3 fL (9.4-12.4); Red Blood Count 3.82 M/mcL (4.19-5.50); Red Cell Distribution Width 14.7 % (11.5-14.5)
[2017-08-08] MEDS: Ipratropium/Albuterol Neb 3 ML IH SCH ×4 (04:12→21:59)
[2017-08-08] MEDS: *HR* Enoxaparin 40 MG/0.4 ML SYRINGE SQ SCH (05:18)
[2017-08-08] MEDS: MetroNIDAZOLE 500 MG/100 ML 500 MG/100 ML BAG IVPB SCH ×3 (05:18→17:18)
[2017-08-08] MEDS: traMADol 50 MG TABLET PO SCH ×4 (05:18→21:37)
[2017-08-08 05:30] LABS: Hematocrit 32.6 % (37.5-50.1); Hemoglobin 11.1 g/dL (12.9-16.9); Mean Corpuscular Hemoglobin 29.4 pg (28.0-33.3); Mean Corpuscular Volume 86.2 fL (83.0-100.0); Mean Platelet Volume 9.3 fL (9.4-12.4); Platelet Count 802 K/mcL (140-400); Red Blood Count 3.78 M/mcL (4.19-5.50); Red Cell Distribution Width 14.9 % (11.5-14.5)
[2017-08-08] MEDS: Insulin LISPRO 300 UNITS/3 ML VIAL SQ SCH ×5 (07:30→22:51)
[2017-08-08] MEDS: carBAMazepine 200 MG TABLET PO SCH ×2 (08:16→15:22)
--- NOTE | 2017-08-08 11:05 | Internal Med Progress Note ---
Date of Encounter: 08/08/17 Time of Encounter: 11:03 - Assessment and plan (1) HTN (hypertension) Current Visit: Yes Status: Chronic Assessment and plan: Chronic and well controlled Qualifiers: Hypertension type: essential hypertension Qualified Code(s): I10 - Essential (primary) hypertension (2) COPD (chronic obstructive pulmonary disease) Current Visit: Yes Status: Chronic Assessment and plan: No active wheezing Qualifiers: COPD type: chronic bronchitis Chronic bronchitis type: simple Qualified Code(s): J41.0 - Simple chronic bronchitis (3) Diabetes mellitus Current Visit: Yes Status: Chronic Assessment and plan: Chronic we will continue her current sliding scale Qualifiers: Diabetes mellitus type: type 2 Diabetes mellitus complication status: with unspecified complications Diabetes mellitus neuropsychologist insulin use: without half-way use Qualified Code(s): E11.8 - Type 2 diabetes mellitus with unspecified complications (4) Intra-abdominal collection Current Visit: Yes Status: Acute Assessment and plan: Intra-abdominal abscess status post drainage patient clinically responded to IV antibiotic (5) Thrombocytosis Current Visit: Yes Status: Acute Assessment and plan: reactive and stable (6) Status post cholecystectomy Current Visit: Yes Status: Acute - Subjective Interval history: Patient with history of COPD, GERD, hypertension, had a recent cholecystectomy and right colon resection and discharged patient return with fever, increased abdominal pain ,noted by CT to have an intra-abdominal collection found to be abscess ,,,,,patient underwent drainage by the interventional radiology fluid growing Escherichia coli antibiotic has been changed from vancomycin and Zosyn to Rocephin which is sensitive to Rocephin CT of the abdomen today shows much improved inflammation of the abdomen with no new abscess at present patient clinically says he is doing better 2 the patient continued to do well no fever or chills abdominal pain is better - Constitutional Vitals: Temp Pulse Resp BP Pulse Ox 98.2 F 85 15 124/78 95 08/08/17 07:08 08/08/17 07:08 08/08/17 07:08 08/08/17 07:08 08/08/17 07:08 General appearance: Present: A&O X 3, answers questions appropriately - Eye Eye exam: Present: PERRL, conjuntiva pink, sclera anicteric Pupils: Present: PERRL - Neck Neck exam general surgery: Present: supple, trachea midline. Absent: lymphadenopathy - Respiratory Respiratory exam: Present: CTAB. Absent: accessory muscle use, rales, rhonchi, wheezes - Cardiovascular Cardiovascular exam: Present: RRR, +S1, +S2. Absent: diastolic murmur, gallop, rubs, systolic murmur - GI/Abdominal GI/Abdominal exam: Present: normal bowel sounds, soft, no peritoneal signs. Absent: distended, tenderness Internal Medicine: Result - Labs CBC & Chem 7: 08/08/17 05:20 08/07/17 12:10 Labs: Short CBC 08/07/17 08/08/17 Range/Units 17:15 05:20 WBC 8.5 7.4 (4.3-11.1) K/mcL Hgb 11.2 L 11.1 L (12.9-16.9) g/dL Hct 32.5 L 32.6 L (37.5-50.1) % Plt Count 775 H 802 H (140-400) K/mcL BMP 08/07/17 12:10 Creatinine 0.96 - Impressions Impressions Abdomen/Pelvis CT 08/07/17 09:30 IMPRESSION: 1. Much decreased inflammation right lower abdomen status pigtail catheter drainage of abscess with only a single small residual fluid collection along the superior aspect of the previous abscess site. 2. No new abscess formation is evident. 3. Cholecystectomy. D/ / Roc Zavala / Roc Zavala Interpreting Provider: Roc Zavala Consult Discharge Plan - Plan Referrals: Artemio Briggs DO [Primary Care Provider] -
[2017-08-08] MEDS: cefTRIAXone 2,000 MG in Water for inj. (sterile) 20 ML 20 ML IVP SCH (11:27)
--- NOTE | 2017-08-08 13:06 | General Surgery Progress Note ---
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, r sayda now with intraabdominal abscess s/p drainage; tolerating diet; no acute pain; cont abx regimen cont current diet will cont to monitor activity as tolerated Subjective Patient reports: no new complaints, feels better, still having pain, pain is less, tolerating a regular diet, afebrile Objective Vital Signs - Last 8 Hours Temp Pulse Resp BP Pulse Ox 08/08/17 11:31 98.2 F 116 15 117/81 94 08/08/17 07:08 98.2 F 85 15 124/78 95 Intake and Output 08/07/17 08/08/17 08/08/17 23:59 07:59 15:59 Intake Total 340 / 340 300 / 300 680 / 680 Output Total 0 / 0 700 / 700 400 / 400 Balance 340 / 340 -400 / -400 280 / 280 Intake: IV Fluids 100 / 100 200 / 200 120 / 120 Rocephin 2,000 MG In Water for 20 / 20 inj. (sterile) 20 ML @ 600 mls/ hr IVP Q24H [facility] Rx#:[id number] Flagyl Premix 500 MG/100 ML 500 100 / 100 200 / 200 100 / 100 mg In 100 ml @ 100 mls/hr IVPB Q6HR [facility] Rx#:[id number] Oral 240 / 240 100 / 100 560 / 560 Output: Urine 0 / 0 700 / 700 400 / 400 Wound Drainage 0 / 0 0 / 0 Right Lower Back 0 / 0 0 / 0 Other: Meal Dinner Breakfast Percent of Meal Consumed 100% 100% Stool Size Large Stool Consistency formed Stool Characteristics Normal for Patient Stool Color Brown # Voids 0 Blood Glucose* 176 127 153 - General physical appearance no distress - ENT normocephalic - Respiratory normal expansion, normal respiratory effort - Cardiovascular Cardiovascular exam: Present: RRR - Abdomen Abdomen: Present: soft - Neurologic CN 2-12 grossly intact - Psychiatric oriented to time, oriented to person, oriented to place (non peritoneal) - Labs 08/08/17 05:20 08/07/17 12:10 Diabetes panel 08/07/17 Range/Units 12:10 Creatinine 0.96 (0.70-1.30) mg/dL Pituitary panel 08/07/17 Range/Units 12:10 Creatinine 0.96 (0.70-1.30) mg/dL Adrenal panel 08/07/17 Range/Units 12:10 Creatinine 0.96 (0.70-1.30) mg/dL Consult Discharge Plan - Plan Referrals: Artemio Briggs, [Primary Care Provider] -
[2017-08-09] MEDS: carBAMazepine 200 MG TABLET PO SCH ×3 (00:46→15:33)
[2017-08-09] MEDS: MetroNIDAZOLE 500 MG/100 ML 500 MG/100 ML BAG IVPB SCH ×4 (00:46→18:15)
[2017-08-09] MEDS: Ipratropium/Albuterol Neb 3 ML IH SCH ×4 (03:20→23:00)
[2017-08-09] MEDS: traMADol 50 MG TABLET PO SCH ×4 (04:03→21:21)
[2017-08-09 05:15] LABS: BUN/Creatinine Ratio 13 (6-26); Blood Urea Nitrogen 12 mg/dL (6-20); eGFR For African Americans > 60 (> 60); eGFR For Non-African Americans > 60 (> 60)
[2017-08-09] MEDS: *HR* Enoxaparin 40 MG/0.4 ML SYRINGE SQ SCH (06:17)
[2017-08-09] MEDS: Insulin LISPRO 300 UNITS/3 ML VIAL SQ SCH ×4 (08:16→21:10)
[2017-08-09 09:43] LABS: Basophils # 0.1 K/mcL (0.0-0.2); Eosinophils # 0.2 K/mcL (0.0-0.6); Eosinophils % 1.5 %; Hematocrit 32.8 % (37.5-50.1); Hemoglobin 11.3 g/dL (12.9-16.9); Immature Granulocytes % 0.4 % (0-4); Lymphocytes # 3.2 K/mcL (0.6-4.6); Lymphocytes % 27.8 %; Mean Corpuscular HGB Conc 34.5 g/dL (31.6-35.5); Mean Corpuscular Hemoglobin 29.7 pg (28.0-33.3); Mean Corpuscular Volume 86.3 fL (83.0-100.0); Mean Platelet Volume 9.7 fL (9.4-12.4); Monocytes # 0.8 K/mcL (0.0-1.3); Monocytes % 7.1 %; Neutrophils # 7.1 K/mcL (1.6-8.9); Platelet Count 673 K/mcL (140-400); Red Cell Distribution Width 14.8 % (11.5-14.5); Segmented Neutrophils % 62.2 %
[2017-08-09] MEDS: cefTRIAXone 2,000 MG in Water for inj. (sterile) 20 ML 20 ML IVP SCH (12:07)
--- NOTE | 2017-08-09 13:33 | Internal Med Progress Note ---
Date of Encounter: 08/09/17 Time of Encounter: 13:24 - Assessment and plan (1) HTN (hypertension) Current Visit: Yes Status: Chronic Assessment and plan: Chronic and well controlled Qualifiers: Hypertension type: essential hypertension Qualified Code(s): I10 - Essential (primary) hypertension (2) Hypothyroid Current Visit: Yes Status: Chronic Assessment and plan: continue Levothyroxine Qualifiers: Hypothyroidism type: unspecified Qualified Code(s): E03.9 - Hypothyroidism , unspecified (3) COPD (chronic obstructive pulmonary disease) Current Visit: Yes Status: Chronic Assessment and plan: No active wheezing Qualifiers: COPD type: chronic bronchitis Chronic bronchitis type: simple Qualified Code(s): J41.0 - Simple chronic bronchitis (4) Diabetes mellitus Current Visit: Yes Status: Chronic Assessment and plan: Chronic we will continue her current sliding scale Qualifiers: Diabetes mellitus type: type 2 Diabetes mellitus complication status: with unspecified complications Diabetes mellitus terminal operator insulin use: without terminal operator use Qualified Code(s): E11.8 - Type 2 diabetes mellitus with unspecified complications (5) Intra-abdominal collection Current Visit: Yes Status: Acute Assessment and plan: Intra-abdominal abscess status post drainage on 08/04, fluids growing E coli and VRE, continue IV ceftriaxone and linezolid 57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 patient underwent drainage by the interventional radiology on 08/04, fluid growing Escherichia coli and VRE. antibiotic has been changed from vancomycin and Zosyn to Rocephin and Linezolid on 08/09. CT of the abdomen on 08/07 shows much improved inflammation of the abdomen with no new abscess. Patient is doing okay clinically, he is afebrile, still have abdominal pain and the draining has reduced, 10 ml on 08/08 E coli is sensitive to Bactrium, VRE is sensitive to linezolid. continue linizolid and ceftroxone. ldischarge when Draning improved, WBC normal - Constitutional Vitals: Temp Pulse Resp BP Pulse Ox 98.2 F 95 16 134/83 96 08/09/17 11:12 08/09/17 11:12 08/09/17 11:12 08/09/17 11:12 08/09/17 11:12 General appearance: Present: A&O X 3, answers questions appropriately Exam: CONSTITUTIONAL: patient appears as an age appropriate male in no acute distress. EYES Clear sclerae, bilateral pupils are equal, reactive to light. EMOI. RESPIRATORY: No accessory muscle use, bilateral clear to auscultation, no wheezing, no crackles/rales. CARDIOVASCULAR: Regular heart rate, normal S1 and S2, no murmurs GASTROINTESTINAL: bowel sounds present, soft, no tenderness. MUSCULOSKELETAL: Joints in normal range of motion, no clubbing, no edema, no cyanosis. Bilateral peripheral pulses 2+. NEUROLOGIC: CN II to XII are grossly intact, no focal neurological deficit. Internal Medicine: Result - Labs CBC & Chem 7: 08/09/17 09:01 08/09/17 04:17 Labs: Short CBC 08/09/17 Range/Units 09:01 WBC 11.4 H D (4.3-11.1) K/mcL Hgb 11.3 L (12.9-16.9) g/dL Hct 32.8 L (37.5-50.1) % Plt Count 673 H (140-400) K/mcL Neutrophils # 7.1 (1.6-8.9) K/mcL BMP 08/09/17 04:17 BUN 12 Creatinine 0.93 Consult Discharge Plan - Plan Referrals: Artemio Briggs DO [Primary Care Provider] -
--- NOTE | 2017-08-09 14:07 | General Surgery Progress Note ---
<IqraJackie Contreras - Last Filed: 08/09/17 14:03> Date of Encounter: 08/09/17 Time of Encounter: 09:00 - Assessment and Plan (1) Intra-abdominal collection Current Visit: Yes Status: Acute Patient maintains that he has been experiencing low grade fevers, night swears, and persistent abdominal pain since his surgery approximately 5 weeks ago. 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 - CT abdomen and pelvis on 08/03/2017- Postsurgical changes from prior partial colectomy. The fluid collection seen adjacent to the colectomy site is minimally bigger than on the prior examination. There is no evidence for leak of contrast into this fluid collection and there are several small pockets of air seen within the fluid collection. This is concerning for a possible abscess. -CT abd/pelvis 08-07-2017- decreased inflammation and small residual fluid collection of previous abscess site. -08/09/2017: Patient has no complaints this morning. -Abx coverage per primary team- linezolid and ceftriaxone. -Tolerating a diet well, urinating appropriately. -Increase activity as tolerated. -We will continue to follow patient. Subjective Patient reports: no new complaints, feels better, pain is less, tolerating a regular diet, voiding w/o difficulty, flatus, afebrile Objective Vital Signs - Last 8 Hours Temp Pulse Resp BP Pulse Ox 08/09/17 11:12 98.2 F 95 16 134/83 96 08/09/17 07:28 98.1 F 96 15 127/86 96 Intake and Output 08/08/17 08/09/17 08/09/17 23:59 07:59 15:59 Intake Total 340 / 340 880 / 880 1240 / 1240 Output Total 210 / 210 900 / 900 400 / 400 Balance 130 / 130 -20 / -20 840 / 840 Intake: IV Fluids 100 / 100 200 / 200 120 / 120 Rocephin 2,000 MG In Water for 20 / 20 inj. (sterile) 20 ML @ 600 mls/ hr IVP Q24H [facility] Rx#:[id number] Flagyl Premix 500 MG/100 ML 500 100 / 100 200 / 200 100 / 100 mg In 100 ml @ 100 mls/hr IVPB Q6HR [facility] Rx#:[id number] Oral 240 / 240 680 / 680 1120 / 1120 Output: Urine 200 / 200 900 / 900 400 / 400 Wound Drainage 0 / 0 0 / 0 Right Lower Back 0 / 0 0 / 0 Other: Meal Lunch Percent of Meal Consumed 100% # Voids 0 0 Blood Glucose* 238 121 181 - General physical appearance well developed, well nourished, no distress - Neck Neck exam: trachea midline, no venous distension - Respiratory normal expansion, normal respiratory effort, clear to percussion, clear to auscultation - Cardiovascular Cardiovascular exam: Present: RRR, no murmurs/rubs/gallops - Abdomen Abdomen: Present: bowel sounds present, soft, non tender Hernia: none - Incision Incision: Present: clean and dry, intact - Integumentary no rash, no growths - Neurologic CN 2-12 grossly intact, normal coordination, normal sensation - Musculoskeletal normal gait, normal posture - Psychiatric oriented to time, oriented to person, oriented to place, speech is normal, memory intact - Labs 08/09/17 09:01 08/09/17 04:17 Diabetes panel 08/09/17 Range/Units 04:17 BUN 12 (6-20) mg/dL Creatinine 0.93 (0.70-1.30) mg/dL Pituitary panel 08/09/17 Range/Units 04:17 BUN 12 (6-20) mg/dL Creatinine 0.93 (0.70-1.30) mg/dL Adrenal panel 08/09/17 Range/Units 04:17 BUN 12 (6-20) mg/dL Creatinine 0.93 (0.70-1.30) mg/dL Consult Discharge Plan - Plan Referrals: Artemio Briggs DO [Primary Care Provider] - <Ubaldo Palacios - Last Filed: 08/09/17 19:35> Date of Encounter: 08/09/17 - Assessment and Plan (1) Abscess after procedure Current Visit: Yes Status: Acute Objective Vital Signs - Last 8 Hours Temp Pulse Resp BP Pulse Ox 08/09/17 16:02 98.6 F 100 15 129/86 93 Intake and Output 08/09/17 08/09/17 08/09/17 07:59 15:59 23:59 Intake Total 880 / 880 1490 / 1490 1340 / 1340 Output Total 900 / 900 400 / 400 Balance -20 / -20 1090 / 1090 1340 / 1340 Intake: IV Fluids 200 / 200 370 / 370 300 / 300 Rocephin 2,000 MG In Water for inj. (sterile) 20 ML @ 600 mls/ hr IVP Q24H [facility] Rx#:[id number] Zyvox Premix 600mg/300mL 600 mg 300 / 300 In 300 ml @ 150 mls/hr IVPB Q12HR [facility] Rx#:[id number] Flagyl Premix 500 MG/100 ML 500 200 / 200 100 / 100 mg In 100 ml @ 100 mls/hr IVPB Q6HR [facility] Rx#:[id number] Vancocin 1,500 MG In 0.9 % 250 / 250 Sodium Chloride 250 ML @ 166.67 mls/hr IVPB Q24H [facility] Rx#: [id number] Oral 680 / 680 1120 / 1120 1040 / 1040 Output: Urine 900 / 900 400 / 400 Wound Drainage 0 / 0 0 / 0 Right Lower Back 0 / 0 0 / 0 Other: Meal Lunch Dinner Percent of Meal Consumed 100% 100% # Voids 0 0 Blood Glucose* 121 181 135 - Labs 08/09/17 09:01 08/09/17 04:17 Diabetes panel 08/09/17 Range/Units 04:17 BUN 12 (6-20) mg/dL Creatinine 0.93 (0.70-1.30) mg/dL Pituitary panel 08/09/17 Range/Units 04:17 BUN 12 (6-20) mg/dL Creatinine 0.93 (0.70-1.30) mg/dL Adrenal panel 08/09/17 Range/Units 04:17 BUN 12 (6-20) mg/dL Creatinine 0.93 (0.70-1.30) mg/dL - Attending Attestation please see my note from same day
[2017-08-10] MEDS: MetroNIDAZOLE 500 MG/100 ML 500 MG/100 ML BAG IVPB SCH ×3 (00:23→11:27)
[2017-08-10] MEDS: carBAMazepine 200 MG TABLET PO SCH ×4 (00:24→23:22)
[2017-08-10] MEDS: *HR* LORazepam 0.5 MG TABLET PO PRN ×2 (01:31→22:40)
[2017-08-10 04:22] LABS: Basophils # 0.1 K/mcL (0.0-0.2); Basophils % 1.1 %; Eosinophils # 0.2 K/mcL (0.0-0.6); Eosinophils % 2.1 %; Hematocrit 30.4 % (37.5-50.1); Hemoglobin 10.3 g/dL (12.9-16.9); Immature Granulocytes % 0.5 % (0-4); Lymphocytes # 3.2 K/mcL (0.6-4.6); Lymphocytes % 28.3 %; Mean Corpuscular HGB Conc 33.9 g/dL (31.6-35.5); Mean Corpuscular Hemoglobin 29.2 pg (28.0-33.3); Mean Corpuscular Volume 86.1 fL (83.0-100.0); Mean Platelet Volume 9.3 fL (9.4-12.4); Monocytes # 1.1 K/mcL (0.0-1.3); Monocytes % 10.1 %; Neutrophils # 6.5 K/mcL (1.6-8.9); Platelet Count 748 K/mcL (140-400); Red Blood Count 3.53 M/mcL (4.19-5.50); Red Cell Distribution Width 14.9 % (11.5-14.5); Segmented Neutrophils % 57.9 %
[2017-08-10] MEDS: Ipratropium/Albuterol Neb 3 ML IH SCH ×2 (05:18→11:03)
[2017-08-10 05:37] LABS: BUN/Creatinine Ratio 13 (6-26); Blood Urea Nitrogen 12 mg/dL (6-20); Calcium 9.2 mg/dL (8.6-10.3); Carbon Dioxide 23 mEq/L (23-29); Chloride 108 mEq/L (98-107); Glucose 133 mg/dL (70-105); Osmolality,Calculated 294 (280-300); Potassium 3.4 mEq/L (3.5-5.1); Sodium 141 mEq/L (136-145); eGFR For African Americans > 60 (> 60); eGFR For Non-African Americans > 60 (> 60)
[2017-08-10] MEDS: traMADol 50 MG TABLET PO SCH ×4 (06:03→22:05)
[2017-08-10] MEDS: *HR* Enoxaparin 40 MG/0.4 ML SYRINGE SQ SCH (06:39)
[2017-08-10] MEDS: Insulin LISPRO 300 UNITS/3 ML VIAL SQ SCH ×4 (08:19→20:45)
--- NOTE | 2017-08-10 08:39 | General Surgery Progress Note ---
<JasonchikiJackie kelsey - Last Filed: 08/10/17 08:48> Date of Encounter: 08/10/17 Time of Encounter: 08:37 - Assessment and Plan (1) Intra-abdominal collection Current Visit: Yes Status: Acute Patient maintains that he has been experiencing low grade fevers, night swears, and persistent abdominal pain since his surgery approximately 5 weeks ago. 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 - CT abdomen and pelvis on 08/03/2017- Postsurgical changes from prior partial colectomy. The fluid collection seen adjacent to the colectomy site is minimally bigger than on the prior examination. There is no evidence for leak of contrast into this fluid collection and there are several small pockets of air seen within the fluid collection. This is concerning for a possible abscess. -CT abd/pelvis 08-07-2017- decreased inflammation and small residual fluid collection of previous abscess site. -08/10/2017: Patient has no complaints this morning. Ready for discharge. -Abx coverage per primary team- IV linezolid and ceftriaxone. White blood cell count 11.2 today, yesterday 11.4. -Recommend transition to oral antibiotics -FARIDEH drain to be pulled today. -Continue to increase activity as tolerated. -Patient stable for discharge from a surgical perspective after FARIDEH drain pulled today. Discharge per primary team. Thank you for involving us in the care of this patient. Please call with any questions or concerns. FU scheduled with Dr. Brunner on August at 10:10AM. Subjective Patient reports: no new complaints, feels better, pain is less, tolerating a regular diet, flatus, bowel movement, afebrile Objective Vital Signs - Last 8 Hours Temp Pulse Resp BP Pulse Ox 08/10/17 05:40 98.2 F 98 16 128/87 94 08/10/17 00:52 18 92 Intake and Output 08/09/17 08/10/17 08/10/17 23:59 07:59 15:59 Intake Total 1440 / 1440 100 / 100 400 / 400 Output Total 0 / 0 510 / 510 Balance 1440 / 1440 -410 / -410 400 / 400 Intake: IV Fluids 400 / 400 100 / 100 400 / 400 Zyvox Premix 600mg/300mL 600 mg 300 / 300 300 / 300 In 300 ml @ 150 mls/hr IVPB Q12HR JERILYN Rx#:[id number] Flagyl Premix 500 MG/100 ML 500 100 / 100 100 / 100 100 / 100 mg In 100 ml @ 100 mls/hr IVPB Q6HR JERILYN Rx#:[id number] Oral 1040 / 1040 0 / 0 Output: Urine 0 / 0 500 / 500 Wound Drainage 0 / 0 10 / 10 Right Lower Back 0 / 0 10 / 10 Other: Meal Dinner Percent of Meal Consumed 100% # Voids 0 Blood Glucose* 146 142 - General physical appearance well developed, well nourished, no distress, no pain - ENT no congestion, Other (cough) - Neck Neck exam: no masses, trachea midline - Respiratory normal expansion, normal respiratory effort, clear to percussion rales: bilateral (mild) - Cardiovascular Cardiovascular exam: Present: RRR, no murmurs/rubs/gallops - Abdomen Abdomen: Present: bowel sounds present, soft, non tender Hernia: none - Incision Incision: Present: clean and dry, intact (FARIDEH drain in place with clear serous fluid, approx 10ml. No erythema surrounding FARIDEH drain site. ) - Neurologic CN 2-12 grossly intact, normal coordination, normal sensation - Musculoskeletal normal gait, normal posture - Psychiatric oriented to time, oriented to person, oriented to place, speech is normal - Labs 08/10/17 03:58 08/10/17 03:58 Diabetes panel 08/10/17 Range/Units 03:58 Sodium 141 (136-145) mEq/L Potassium 3.4 L (3.5-5.1) mEq/L Chloride 108 H (98-107) mEq/L Carbon Dioxide 23 (23-29) mEq/L BUN 12 (6-20) mg/dL Creatinine 0.95 (0.70-1.30) mg/dL Glucose 133 H (70-105) mg/dL Calcium 9.2 (8.6-10.3) mg/dL Calcium panel 08/10/17 Range/Units 03:58 Calcium 9.2 (8.6-10.3) mg/dL Pituitary panel 08/10/17 Range/Units 03:58 Sodium 141 (136-145) mEq/L Potassium 3.4 L (3.5-5.1) mEq/L Chloride 108 H (98-107) mEq/L Carbon Dioxide 23 (23-29) mEq/L BUN 12 (6-20) mg/dL Creatinine 0.95 (0.70-1.30) mg/dL Glucose 133 H (70-105) mg/dL Calcium 9.2 (8.6-10.3) mg/dL Adrenal panel 08/10/17 Range/Units 03:58 Sodium 141 (136-145) mEq/L Potassium 3.4 L (3.5-5.1) mEq/L Chloride 108 H (98-107) mEq/L Carbon Dioxide 23 (23-29) mEq/L BUN 12 (6-20) mg/dL Creatinine 0.95 (0.70-1.30) mg/dL Glucose 133 H (70-105) mg/dL Calcium 9.2 (8.6-10.3) mg/dL Consult Discharge Plan - Plan Additional Instructions: Wound Care Instructions: Remove Dressing after 24 hours. Shower daily with antibacterial soap. May leave FARIDEH drain site open to air after 24 hours or may replace with fresh dressing. Referrals: Artemio Briggs DO [Primary Care Provider] - Haris Brunner MD [Partnered Physician] - <Haris Brunner - Last Filed: 08/10/17 10:37> Date of Encounter: 08/10/17 Objective Vital Signs - Last 8 Hours Temp Pulse Resp BP Pulse Ox 08/10/17 05:40 98.2 F 98 16 128/87 94 Intake and Output 08/09/17 08/10/17 08/10/17 23:59 07:59 15:59 Intake Total 1440 / 1440 100 / 100 760 / 760 Output Total 0 / 0 510 / 510 Balance 1440 / 1440 -410 / -410 760 / 760 Intake: IV Fluids 400 / 400 100 / 100 400 / 400 Zyvox Premix 600mg/300mL 600 mg 300 / 300 300 / 300 In 300 ml @ 150 mls/hr IVPB Q12HR JERILYN Rx#:[id number] Flagyl Premix 500 MG/100 ML 500 100 / 100 100 / 100 100 / 100 mg In 100 ml @ 100 mls/hr IVPB Q6HR JERILYN Rx#:[id number] Oral 1040 / 1040 0 / 0 360 / 360 Output: Urine 0 / 0 500 / 500 Wound Drainage 0 / 0 10 / 10 Right Lower Back 0 / 0 10 / 10 Other: Meal Dinner Breakfast Percent of Meal Consumed 100% 100% # Voids 0 Blood Glucose* 146 142 - Labs 08/10/17 03:58 08/10/17 03:58 Diabetes panel 08/10/17 Range/Units 03:58 Sodium 141 (136-145) mEq/L Potassium 3.4 L (3.5-5.1) mEq/L Chloride 108 H (98-107) mEq/L Carbon Dioxide 23 (23-29) mEq/L BUN 12 (6-20) mg/dL Creatinine 0.95 (0.70-1.30) mg/dL Glucose 133 H (70-105) mg/dL Calcium 9.2 (8.6-10.3) mg/dL Calcium panel 08/10/17 Range/Units 03:58 Calcium 9.2 (8.6-10.3) mg/dL Pituitary panel 08/10/17 Range/Units 03:58 Sodium 141 (136-145) mEq/L Potassium 3.4 L (3.5-5.1) mEq/L Chloride 108 H (98-107) mEq/L Carbon Dioxide 23 (23-29) mEq/L BUN 12 (6-20) mg/dL Creatinine 0.95 (0.70-1.30) mg/dL Glucose 133 H (70-105) mg/dL Calcium 9.2 (8.6-10.3) mg/dL Adrenal panel 08/10/17 Range/Units 03:58 Sodium 141 (136-145) mEq/L Potassium 3.4 L (3.5-5.1) mEq/L Chloride 108 H (98-107) mEq/L Carbon Dioxide 23 (23-29) mEq/L BUN 12 (6-20) mg/dL Creatinine 0.95 (0.70-1.30) mg/dL Glucose 133 H (70-105) mg/dL Calcium 9.2 (8.6-10.3) mg/dL - Attending Attestation I examined this patient and my medical decision-making was reviewed with the Resident Physician. I agree with the documented findings, disposition and treatment plan as described except to the extent set forth below. The patient is seen and evaluated on morning rounds with the resident. He is not having any abdominal pain. The drainage from the CAT scan drain is now serous with very little purulent material. I think that this can be removed and he can be transitioned to oral antibiotics. He should be able to be discharged later today if clinically stable. Haris Brunner MD FACS
[2017-08-10] MEDS: cefTRIAXone 2,000 MG in Water for inj. (sterile) 20 ML 20 ML IVP SCH (11:26)
--- NOTE | 2017-08-10 13:07 | Infectious Disease Progress No ---
Date of Encounter: 08/10/17 Time of Encounter: 13:05 - Assessment and Plan (1) Sepsis Current Visit: Yes Status: Acute The patient had two SIRS criteria on admission. Likely secondary to intra-abdominal abscess and inadequate source control. Improved. He's has been afebrile for several days, but he reports feeling feverish overnight. His WBC mildly elevated over the past couple of days. Continues to have intermittent tachycardia. Blood cultures drawn 07/31/17 are negative x 2 sets. Qualifiers: Sepsis type: sepsis due to unspecified organism Qualified Code(s): A41.9 - Sepsis, unspecified organism (2) Intra-abdominal collection Current Visit: Yes Status: Resolved Likely secondary to anastamosis leak. Causative organism VRE (amp-resistant) and E. coli. 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 CT of the abdomen and pelvis 07/31/17 showed an abscess adjacent to the right lower colon anastamosis site. Repeat CT of the abdomen and pelvis 08/03/17 showed that the fluid collection was a little bit bigger. IR consulted 08/04/16. Status post CT-guided aspiration of the abscess with drain placement. 55ml pus aspirated. General surgery consulted and following. Clinically, the patient has improved since having the drain placed. Repeat CT scan 08/07/17 shows interval decrease in the size of the abscess with drain in place. Continue Rocephin 2 grams IV daily. Discontinue linezolid as it interacts with the patient's Tegretol that he takes daily due to history of TBI. Start Daptomycin 6mg/kg IV daily. Switch flagyl to PO. Check baseline CK level. Duration of treatment depends on the clinical picture, but will plan on continuing IV antibiotics until the patient is seen in the ID clinic. At that time, will plan to repeat CT scan and may switch to PO antibiotics if improved. Monitor renal function and for drug toxicity and dose-adjust antibiotics. Will discuss with the VAT if the patient needs to have Powerglide switched to midline or PICC. Will need weekly CBC, BUN/Cr, and CK level. Will need weekly IV care per protocol. Follow up with ID 08/11/17 at 0920. 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 CT of the abdomen and pelvis completed 07/21/17 showed findings consistent with anastamosis breakdown, but no abscess. CT of the abdomen and pelvis completed 07/31/17 showed findings consistent with abscess adjacent to the right lower colon anastamosis. Repeat CT of the abdomen and pelvis completed 08/03/17 showed that the abscess was a little larger, but did not show any leakage of contrast from the bowel into the abscess. Repeat CT scan 08/07/17 showed no evidence of leak. General surgery consulted and following. (4) Abdominal pain Current Visit: No Status: Acute Likely secondary to intra-abdominal abscess. Improved, but patient states that a little worse today. Minimal output from drain over the last few days. May need to consider repeating imaging to evaluate. Pain management per the primary team Qualifiers: Abdominal location: generalized Qualified Code(s): R10.84 - Generalized abdominal pain (5) Thrombocytosis Current Visit: Yes Status: Acute Likely reactive from infectious etiology. Continue to trend. (6) Status post cholecystectomy Current Visit: Yes Status: Acute Status post open cholecystectomy with FARIDEH drain placement in the subhepatic abscess 07/03/[address] Brunner. (7) Status post right hemicolectomy Current Visit: Yes Status: Acute (8) COPD (chronic obstructive pulmonary disease) Current Visit: Yes Status: Chronic Qualifiers: COPD type: chronic bronchitis Chronic bronchitis type: simple Qualified Code(s): J41.0 - Simple chronic bronchitis (9) Diabetes mellitus Current Visit: Yes Status: Chronic Recommend aggressive glucose monitoring and control to promote wound healing and prevent re-infection. Management per the primary team. Qualifiers: Diabetes mellitus type: type 2 Diabetes mellitus complication status: with unspecified complications Diabetes mellitus intermediate manager insulin use: without correction use Qualified Code(s): E11.8 - Type 2 diabetes mellitus with unspecified complications - Subjective Interval history: Patient seen and examined. No acute events noted overnight.States overall he feels feels a little worse today. Reports feeling feverish overnight and increased RLQ pain this morning. Denies any chills or rigors. Denies any chest pain. States his shortness of breath is at baseline. Reports a moist productive cough this morning. Denies any nausea or vomiting or diarrhea. Reports abdominal pain with radiation around to the right flank where the drain is placed. Denies changes in his appetite or urinary complaints. Denies oral thrush or new skin lesions. Infect Dis PN-Objective Data - Labs CBC & Chem 7: 08/10/17 03:58 08/10/17 03:58 Labs: Laboratory Results - last 24 hr 08/09/17 08/10/17 08/10/17 15:28 03:58 03:58 WBC 11.2 H RBC 3.53 L Hgb 10.3 L Hct 30.4 L MCV 86.1 MCH 29.2 MCHC 33.9 RDW 14.9 H Plt Count 748 H MPV 9.3 L Immature Gran % 0.5 Seg Neutrophils % 57.9 Lymphocytes % 28.3 Monocytes % 10.1 Eosinophils % 2.1 Basophils % 1.1 Neutrophils # 6.5 Lymphocytes # 3.2 Monocytes # 1.1 Eosinophils # 0.2 Basophils # 0.1 Sodium 141 Potassium 3.4 L Chloride 108 H Carbon Dioxide 23 BUN 12 Creatinine 0.95 Est GFR ( Amer) > 60 Est GFR (Non-Af Amer) > 60 BUN/Creatinine Ratio 13 Glucose 133 H POC Glucose 135 H Calculated Osmolality 294 Calcium 9.2 08/10/17 07:09 WBC RBC Hgb Hct MCV MCH MCHC RDW Plt Count MPV Immature Gran % Seg Neutrophils % Lymphocytes % Monocytes % Eosinophils % Basophils % Neutrophils # Lymphocytes # Monocytes # Eosinophils # Basophils # Sodium Potassium Chloride Carbon Dioxide BUN Creatinine Est GFR ( Amer) Est GFR (Non-Af Amer) BUN/Creatinine Ratio Glucose POC Glucose 142 H Calculated Osmolality Calcium Cultures: Cultures 08/04/17 10:15 Anaerobic Culture - Preliminary Abdomen 08/04/17 10:15 Body Fluid Culture - Final Other-Specify in Comments Escherichia coli Vancomycin Resistant Enterococcus faecium 08/04/17 16:20 Blood Culture - Final Peripheral Venipuncture No growth. 08/04/17 16:20 Blood Culture - Final Peripheral Venipuncture No growth. 08/04/17 10:15 Gram Stain - Final Abdomen Exam - Constitutional Vitals: Temp Pulse Resp BP Pulse Ox 99 F 100 16 128/87 97 08/10/17 10:38 08/10/17 10:38 08/10/17 10:38 08/10/17 05:40 08/10/17 10:38 General appearance: average body habitus, cooperative, no acute distress - Head Head exam: Present: atraumatic, normal inspection, normocephalic - Eye Eye exam: Present: EOMI, normal appearance, PERRL Pupils: Present: normal accommodation - ENT ENT exam: Present: mucous membranes moist - Neck Neck exam: Present: normal inspection - Respiratory Respiratory exam: Present: CTAB. Absent: rales, respiratory distress, rhonchi, wheezes - Cardiovascular Cardiovascular exam: Present: RRR, +S1, +S2 - GI/Abdominal GI/Abdominal exam: Present: normal bowel sounds, soft, tenderness (RLQ). Absent : distended Additional comments: FARIDEH drain noted to the right flank with scant amount of light yellow seropurulent drainage noted. - Extremities Exam Extremities exam: Present: normal inspection. Absent: joint swelling, pedal edema, tenderness - Back Exam Back exam: Present: CVA tenderness (R) (At drain site) - Neurological Exam Neurological exam: Present: alert, oriented X3, no focal deficits - Psychiatric Psychiatric exam: Present: normal affect, normal mood - Skin Skin exam: Present: dry, intact, normal color, warm Consult Discharge Plan - Plan Additional Instructions: Wound Care Instructions: Remove Dressing after 24 hours. Shower daily with antibacterial soap. May leave FARIDEH drain site open to air after 24 hours or may replace with fresh dressing. Referrals: Haris Brunner MD [Partnered Physician] - Artemio Briggs DO [Primary Care Provider] - Omaira Jimenez, ROUNDING MACHINE TENDER [Advanced Practice Nurse] - 08/11/17 9:20 am Prescriptions: Ceftriaxone Na/Dextrose,Iso [Ceftriaxone 2 gm Piggyback] 2 gm IV DAILY 14 Days # 14 [email or web address] DAPTOmycin [Daptomycin] 500 mg IV DAILY 14 Days #14 vial metroNIDAZOLE [Flagyl] 500 mg PO TID 14 Days #42 tablet - Attending Attestation This is an addendum to report dictated by Omaira Jimenez. Agree with above findings and assessment and plan. Patient had low-grade fever this afternoon and he's pretty anxious. Also states he has some cough that is new. He states that he had some abdominal pain but is not that bad. Have loose bowel movement. Continue with current antibiotics including Rocephin, Flagyl and daptomycin. DC Zyvox because it it drug interaction with Tegretol. Get a chest x-ray If patient continues to be febrile consider repeating a CT abdomen pelvis make sure there is no leak.
[2017-08-10] MEDS ORDERED: Lidocaine -MPF 1% 2 ML VIAL INFILT ONE (13:33)
[2017-08-10 14:03] LABS: Creatine Kinase 15 Units/L (30-223)
--- NOTE | 2017-08-10 14:11 | Discharge Summary ---
Date of Encounter: 08/10/17 Time of Encounter: 14:06 - Discharge Diagnosis (1) HTN (hypertension) Priority: Secondary Status: Chronic Qualifiers: Hypertension type: essential hypertension Qualified Code(s): I10 - Essential (primary) hypertension (2) Hypothyroid Priority: Secondary Status: Chronic Qualifiers: Hypothyroidism type: unspecified Qualified Code(s): E03.9 - Hypothyroidism , unspecified (3) COPD (chronic obstructive pulmonary disease) Priority: Secondary Status: Chronic Qualifiers: COPD type: chronic bronchitis Chronic bronchitis type: simple Qualified Code(s): J41.0 - Simple chronic bronchitis (4) Diabetes mellitus Priority: Secondary Status: Chronic Qualifiers: Diabetes mellitus type: type 2 Diabetes mellitus complication status: with unspecified complications Diabetes mellitus fpc insulin use: without fpc use Qualified Code(s): E11.8 - Type 2 diabetes mellitus with unspecified complications (5) Intra-abdominal collection Priority: Primary Status: Resolved Comments: Intra-abdominal abscess status post drainage on 08/04, surgery note reviewed, they are going to remove FARIDEH, fluids growing E coli and VRE, ID was aconsulted. case discussed with ID. ID recommended as below: Continue Rocephin 2 grams IV daily. Discontinue linezolid as it interacts with the patient's Tegretol that he takes daily due to history of TBI. Start Daptomycin 6mg/kg IV daily. Switch flagyl to PO. Check baseline CK level. Duration of treatment depends on the clinical picture, but will plan on continuing IV antibiotics until the patient is seen in the ID clinic. At that time, will plan to repeat CT scan and may switch to PO antibiotics if improved. Monitor renal function and for drug toxicity and dose-adjust antibiotics. Will discuss with the VAT if the patient needs to have Powerglide switched to midline or PICC. Will need weekly CBC, BUN/Cr, and CK level. Will need weekly IV care per protocol. Follow up with ID 08/11/17 at 0920. - Discharge Medications Prescriptions: Ceftriaxone Na/Dextrose,Iso [Ceftriaxone 2 gm Piggyback] 2 gm IV DAILY 14 Days # 14 froz.piggy DAPTOmycin [Daptomycin] 500 mg IV DAILY 14 Days #14 vial metroNIDAZOLE [Flagyl] 500 mg PO TID 14 Days #42 tablet Home Medications: Cyclobenzaprine [Flexeril] 10 mg PO TID 01/28/15 [History] Fenofibrate 160 mg PO HS 01/28/15 [History] Levothyroxine Sodium [Synthroid] 75 mcg PO QAM 01/28/15 [History] Lisinopril [Zestril] 2.5 mg PO QAM 01/28/15 [History] Terazosin [Hytrin] 4 mg PO HS 01/28/15 [History] Testosterone Cypionate [Depo-Testosterone] 0.25 ml IM TH 01/28/15 [History] TraMADol [Ultram] 50 mg PO Q6HR PRN 01/28/15 [History] Albuterol Sulfate [Albuterol Inhaler] 2 puff IH Q4HR PRN 01/17/16 [History] Cholecalciferol (D-3) [Vitamin D] 2,000 unit PO DAILY 01/17/16 [History] Fish Oil/Dha/Epa [Fish Oil 1,200 mg Fish Oil] 1 each PO DAILY 01/17/16 [History] Fluticasone Propionate Nasal [Flonase] 1 spr NS DAILY 01/17/16 [History] Montelukast [Singulair] 10 mg PO HS 01/17/16 [History] Multivitamin [Multi-Day Vitamins] 1 each PO DAILY 01/17/16 [History] Omeprazole [PriLOSEC] 20 mg PO DAILY 01/17/16 [History] Tadalafil [Cialis] 20 mg PO AD PRN 01/17/16 [History] Umeclidinium Brm/Vilanterol Tr [Anoro Ellipta 62.5-25 Mcg INH] 1 puff IH DAILY 01/17/16 [History] Vitamin B Complex [B Complex] 1 each PO DAILY 01/17/16 [History] Diclofenac Sodium [Voltaren] 1 appl TP QID 07/02/17 [History] Roflumilast [Daliresp] 500 mcg PO DAILY 07/02/17 [History] carBAMazepine [Tegretol] 200 mg PO Q8HR 07/02/17 [History] Chloraseptic [place] [Chloraseptic] 2 spray MM Q4HR bottle 07/08/17 [Rx] Docusate [Colace] 100 mg PO BID #20 capsule 07/08/17 [Rx] metFORMIN [Glucophage] 500 mg PO BIDWM 07/22/17 [History] Amoxicillin/Clavulanate [Augmentin] 875 mg PO BIDWM #20 tablet 07/24/17 [Rx] Ceftriaxone Na/Dextrose,Iso [Ceftriaxone 2 gm Piggyback] 2 gm IV DAILY 14 Days # 14 froz.piggy 08/10/17 [Rx] DAPTOmycin [Daptomycin] 500 mg IV DAILY 14 Days #14 vial 08/10/17 [Rx] metroNIDAZOLE [Flagyl] 500 mg PO TID 14 Days #42 tablet 08/10/17 [Rx] Allergies/Adverse Reactions: 3 Allergy/AdvReac Type Severity Reaction Status Date / Time phenytoin [From Dilantin] Allergy Hives Verified 07/22/17 13:35 Sulfa (Sulfonamide Allergy Hives Verified 07/22/17 13:35 Antibiotics) Date of admission: 08/01/17 02:16 Primary care physician: Artemio Briggs DO Consults: 08/03/17 13:04 Consult to Interventional Radiology [CONS] Routine Consulting Provider: Radiology Interventional [place] Reason for Consult: Need CT guided drain placed on 08-04-2017 (tomorrow). Call Completed: Yes 08/04/17 17:21 Consult to Infectious Diseases [CONS] Routine Consulting Provider: Infectious Disease [place] Reason for Consult: septic; post drainage of abdominal abscess Call Completed: No 08/07/17 09:50 Consult to Invasive Line Access Team [CONS] Routine Reason for Consult: limited vascular Line Type: EPIV 08/10/17 13:33 Consult to Invasive Line Access Team [CONS] Routine Reason for Consult: Picc Line Insertion Line Type: PICC Discharging clinician: Noelle Roland Anticipated date of discharge: 08/10/17 - Patient Status Disposition: Home Health Service Condition: Good Functional capacity at discharge: independent ambulation Overall status at discharge: patient is back to baseline - Discharge Instructions Follow Up With: Haris Brunner MD [Partnered Physician] - Omaira Jimenez CNP [Advanced Practice Nurse] - 08/11/17 9:20 am Artemio Briggs DO [Primary Care Provider] - Additional Instructions: Wound Care Instructions: Remove Dressing after 24 hours. Shower daily with antibacterial soap. May leave FARIDEH drain site open to air after 24 hours or may replace with fresh dressing. - Diet and Activity Diet: advance to your usual diet Interval History: Patient with history of COPD, GERD, hypertension, had a recent cholecystectomy and right colon resection and discharged patient return with fever, increased abdominal pain ,noted by CT to have an intra-abdominal collection found to be abscess. patient underwent drainage by the interventional radiology on 08/04, fluid growing Escherichia coli and VRE. antibiotic has been changed from vancomycin and Zosyn to Rocephin and Linezolid on 08/09. CT of the abdomen on 08/07 shows much improved inflammation of the abdomen with no new abscess. Patient is doing okay clinically, he is afebrile, still have abdominal pain and the draining has reduced, 10 ml on 08/08 E coli is sensitive to Bactrium, VRE is sensitive to linezolid and daptomycin. Patient is doing well, afebrile, pain is improved I discussed with infectious specialist today okay to discharge on daptomycin and ceftriaxone. Follow-up with infectious specialist on August 11 Hospital course: Mr. López is a 57 year old male with history of COPD, GERD, hypertension, had a recent cholecystectomy and right colon resection and discharged patient return with fever, increased abdominal pain ,noted by CT to have an intra-abdominal collection found to be abscess on 08/01, surgery and ID were consulted. patient underwent drainage by the interventional radiology on 08/04 , fluid growing Escherichia coli and VRE. antibiotic has been changed from vancomycin and Zosyn to Rocephin and Linezolid on 08/09. CT of the abdomen on shows much improved inflammation of the abdomen with no new abscess. Patient is doing okay clinically, he is afebrile, still have abdominal pain and the draining has reduced, 10 ml on 08/08. Surgery is ok to discahrge E coli is sensitive to ceftriaxone, VRE is sensitive to linezolid and daptomycin. Patient is doing well, afebrile, pain improved. I discussed with infectious specialist today okay to discharge on daptomycin and ceftriaxone. Follow-up with infectious specialist on August 11 Time spent discussing smoking cessation with patient: more than 10 minutes - Time Spent with Patient Total time spent providing and/or coordinating discharge services: Greater than 30 minutes - Constitutional Vitals: Temp Pulse Resp BP Pulse Ox 99 F 100 16 128/87 97 08/10/17 10:38 08/10/17 10:38 08/10/17 10:38 08/10/17 05:40 08/10/17 10:38 General appearance: Present: A&O X 3, answers questions appropriately Exam: CONSTITUTIONAL: patient appears as an age appropriate male in no acute distress. EYES Clear sclerae, bilateral pupils are equal, reactive to light. EMOI. RESPIRATORY: No accessory muscle use, bilateral clear to auscultation, no wheezing, no crackles/rales. CARDIOVASCULAR: Regular heart rate, normal S1 and S2, no murmurs GASTROINTESTINAL: bowel sounds present, soft, no tenderness. MUSCULOSKELETAL: Joints in normal range of motion, no clubbing, no edema, no cyanosis. Bilateral peripheral pulses 2+. NEUROLOGIC: CN II to XII are grossly intact, no focal neurological deficit.
[2017-08-10] MEDS: DAPTOmycin 500 MG in 0.9 % Sodium Chloride 100 ML IVPB SCH (14:25)
--- NOTE | 2017-08-10 14:27 | Physician Discharge Referral ---
Home Health/Hosp Referral Info Attending Provider: gabino Provider in Charge Post Discharge: PCP - Diagnosis (1) HTN (hypertension) Priority: Secondary Status: Chronic (2) Hypothyroid Priority: Secondary Status: Chronic (3) COPD (chronic obstructive pulmonary disease) Priority: Secondary Status: Chronic (4) Diabetes mellitus Priority: Secondary Status: Chronic (5) Intra-abdominal collection Priority: Primary Status: Resolved - Respiratory Orders None Smoking Cessation: Smoking cessation has been advised. For more information, call the [place] Tobacco Quit Line at 6-310-ZEGK-NOW. - Diet/Nutrition Diet/Nutrition Orders: Regular - Activity Activity Orders: Up ad rosa maria - Services Needed Following services are medically necessary services: Nursing, Home Health Aide - Transfer Medications Prescriptions: Ceftriaxone Na/Dextrose,Iso [Ceftriaxone 2 gm Piggyback] 2 gm IV DAILY 14 Days # 14 froz.piggy DAPTOmycin [Daptomycin] 500 mg IV DAILY 14 Days #14 vial metroNIDAZOLE [Flagyl] 500 mg PO TID 14 Days #42 tablet Home Medications: Cyclobenzaprine [Flexeril] 10 mg PO TID 01/28/15 [History] Fenofibrate 160 mg PO HS 01/28/15 [History] Levothyroxine Sodium [Synthroid] 75 mcg PO QAM 01/28/15 [History] Lisinopril [Zestril] 2.5 mg PO QAM 01/28/15 [History] Terazosin [Hytrin] 4 mg PO HS 01/28/15 [History] Testosterone Cypionate [Depo-Testosterone] 0.25 ml IM TH 01/28/15 [History] TraMADol [Ultram] 50 mg PO Q6HR PRN 01/28/15 [History] Albuterol Sulfate [Albuterol Inhaler] 2 puff IH Q4HR PRN 01/17/16 [History] Cholecalciferol (D-3) [Vitamin D] 2,000 unit PO DAILY 01/17/16 [History] Fish Oil/Dha/Epa [Fish Oil 1,200 mg Fish Oil] 1 each PO DAILY 01/17/16 [History] Fluticasone Propionate Nasal [Flonase] 1 spr NS DAILY 01/17/16 [History] Montelukast [Singulair] 10 mg PO HS 01/17/16 [History] Multivitamin [Multi-Day Vitamins] 1 each PO DAILY 01/17/16 [History] Omeprazole [PriLOSEC] 20 mg PO DAILY 01/17/16 [History] Tadalafil [Cialis] 20 mg PO AD PRN 01/17/16 [History] Umeclidinium Brm/Vilanterol Tr [Anoro Ellipta 62.5-25 Mcg INH] 1 puff IH DAILY 01/17/16 [History] Vitamin B Complex [B Complex] 1 each PO DAILY 01/17/16 [History] Diclofenac Sodium [Voltaren] 1 appl TP QID 07/02/17 [History] Roflumilast [Daliresp] 500 mcg PO DAILY 07/02/17 [History] carBAMazepine [Tegretol] 200 mg PO Q8HR 07/02/17 [History] Chloraseptic [place] [Chloraseptic] 2 spray MM Q4HR bottle 07/08/17 [Rx] Docusate [Colace] 100 mg PO BID #20 capsule 07/08/17 [Rx] metFORMIN [Glucophage] 500 mg PO BIDWM 07/22/17 [History] Amoxicillin/Clavulanate [Augmentin] 875 mg PO BIDWM #20 tablet 07/24/17 [Rx] Ceftriaxone Na/Dextrose,Iso [Ceftriaxone 2 gm Piggyback] 2 gm IV DAILY 14 Days # 14 froz.piggy 08/10/17 [Rx] DAPTOmycin [Daptomycin] 500 mg IV DAILY 14 Days #14 vial 08/10/17 [Rx] metroNIDAZOLE [Flagyl] 500 mg PO TID 14 Days #42 tablet 08/10/17 [Rx] Allergies/Adverse Reactions: 3 Allergy/AdvReac Type Severity Reaction Status Date / Time phenytoin [From Dilantin] Allergy Hives Verified 07/22/17 13:35 Sulfa (Sulfonamide Allergy Hives Verified 07/22/17 13:35 Antibiotics) Certification: Further, I certify that my clinical findings support that this patient is homebound (i.e. absences from home require considerable and taxing effort and are for medical reasons or holiness services or infrequently or short duration when for other reasons) because: Homebound Reason: Patient requires assistance of a person or device to safely leave home Attestation: My signature below is to certify that this patient is under my care and that I, or nurse practitioner, or a physician's licensed loan officer assistant working with me, has a face-to -face encounter with this patient.
[2017-08-10] MEDS: Acetaminophen 325 MG TABLET PO PRN ×2 (15:47→23:30)
[2017-08-10] MEDS: Cholecalciferol (D-3) 1,000 UNIT TABLET PO SCH (17:52)
[2017-08-10] MEDS: Fenofibrate 54 MG TABLET PO SCH (20:51)
[2017-08-10] MEDS: metroNIDAZOLE 500 MG TABLET PO SCH (20:52)
[2017-08-11] MEDS: traMADol 50 MG TABLET PO SCH ×4 (04:17→22:23)
[2017-08-11 05:26] LABS: Basophils # 0.2 K/mcL (0.0-0.2); Basophils % 1.3 %; Eosinophils # 0.3 K/mcL (0.0-0.6); Eosinophils % 2.2 %; Hematocrit 33.8 % (37.5-50.1); Hemoglobin 11.3 g/dL (12.9-16.9); Immature Granulocytes % 0.4 % (0-4); Lymphocytes # 2.7 K/mcL (0.6-4.6); Lymphocytes % 23.2 %; Mean Corpuscular HGB Conc 33.4 g/dL (31.6-35.5); Mean Corpuscular Volume 86.9 fL (83.0-100.0); Mean Platelet Volume 9.6 fL (9.4-12.4); Monocytes # 1.4 K/mcL (0.0-1.3); Monocytes % 12.2 %; Neutrophils # 7.1 K/mcL (1.6-8.9); Platelet Count 690 K/mcL (140-400); Red Blood Count 3.89 M/mcL (4.19-5.50); Red Cell Distribution Width 15.2 % (11.5-14.5); Segmented Neutrophils % 60.7 %
[2017-08-11] MEDS: Acetaminophen 325 MG TABLET PO PRN ×3 (06:25→21:09)
[2017-08-11] MEDS: *HR* Enoxaparin 40 MG/0.4 ML SYRINGE SQ SCH (06:25)
[2017-08-11] MEDS: Insulin LISPRO 300 UNITS/3 ML VIAL SQ SCH ×4 (08:34→21:17)
[2017-08-11] MEDS: carBAMazepine 200 MG TABLET PO SCH ×2 (08:40→15:38)
[2017-08-11] MEDS: Vitamin B Complex/Vit C/Vit E 1 EACH TABLET PO SCH (08:40)
[2017-08-11] MEDS: metroNIDAZOLE 500 MG TABLET PO SCH ×3 (08:40→21:10)
[2017-08-11] MEDS: Cholecalciferol (D-3) 1,000 UNIT TABLET PO SCH (08:41)
[2017-08-11] MEDS: Fluticasone Propionate Nasal 50 MCG/SPRAY BOTTLE NS SCH (09:18)
[2017-08-11] MEDS: cefTRIAXone 2,000 MG in Water for inj. (sterile) 20 ML 20 ML IVP SCH (11:04)
--- NOTE | 2017-08-11 11:30 | Infectious Disease Progress No ---
Date of Encounter: 08/11/17 Time of Encounter: 11:28 - Assessment and Plan (1) Sepsis Current Visit: Yes Status: Acute The patient had two SIRS criteria on admission. Likely secondary to intra-abdominal abscess and inadequate source control. The patient has started to have fevers and tachycardia again despite adequate antibiotic coverage. He has started to have RLQ pain again as well. Blood cultures drawn 07/31/17 are negative x 2 sets. Chest xray showed a subtle left perihilar opacification, atelectasis vs. infiltrate. Repeat blood cultures x 2 sets drawn overnight are pending. Flu antigen negative. Check flu PCR now. Qualifiers: Sepsis type: sepsis due to unspecified organism Qualified Code(s): A41.9 - Sepsis, unspecified organism (2) Intra-abdominal collection Current Visit: Yes Status: Resolved Likely secondary to anastamosis leak. Causative organism VRE (amp-resistant) and E. coli. 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 CT of the abdomen and pelvis 07/31/17 showed an abscess adjacent to the right lower colon anastamosis site. Repeat CT of the abdomen and pelvis 08/03/17 showed that the fluid collection was a little bit bigger. IR consulted 08/04/16. Status post CT-guided aspiration of the abscess with drain placement. 55ml pus aspirated. General surgery consulted and following. Clinically, the patient improved after drain was placed, but has began to have fevers and tachycardia again. Repeat CT scan 08/07/17 shows interval decrease in the size of the abscess with drain in place. Drain removed 08/10/17 by the surgery team. Will plan to repeat CT scan tomorrow morning to evaluate for possible re- accumulation of abscess given the patient's clinical worsening. Continue Rocephin 2 grams IV daily. Continue Daptomycin 6mg/kg IV daily. Continue Flagyl 500mg PO daily. Baseline CK level 15. Duration of treatment depends on the clinical picture, but will plan on continuing IV antibiotics until the patient is seen in the ID clinic. At that time, will plan to repeat CT scan and may switch to PO antibiotics if improved. Monitor renal function and for drug toxicity and dose-adjust antibiotics. Will discuss with the VAT if the patient needs to have Powerglide switched to midline or PICC. Will need weekly CBC, BUN/Cr, and CK level. Will need weekly IV care per protocol. Follow up with ID 08/11/17 at 0920. 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 CT of the abdomen and pelvis completed 07/21/17 showed findings consistent with anastamosis breakdown, but no abscess. CT of the abdomen and pelvis completed 07/31/17 showed findings consistent with abscess adjacent to the right lower colon anastamosis. Repeat CT of the abdomen and pelvis completed 08/03/17 showed that the abscess was a little larger, but did not show any leakage of contrast from the bowel into the abscess. Repeat CT scan 08/07/17 showed no evidence of leak. General surgery consulted and following. (4) Abdominal pain Current Visit: No Status: Acute Likely secondary to intra-abdominal abscess. Worse today. Will repeat CT scan in the morning. Pain management per the primary team Qualifiers: Abdominal location: generalized Qualified Code(s): R10.84 - Generalized abdominal pain (5) Thrombocytosis Current Visit: Yes Status: Acute Likely reactive from infectious etiology. Continue to trend. (6) Status post cholecystectomy Current Visit: Yes Status: Acute Status post open cholecystectomy with FARIDEH drain placement in the subhepatic abscess 07/03/[address] Brunner. (7) Status post right hemicolectomy Current Visit: Yes Status: Acute (8) COPD (chronic obstructive pulmonary disease) Current Visit: Yes Status: Chronic Qualifiers: COPD type: chronic bronchitis Chronic bronchitis type: simple Qualified Code(s): J41.0 - Simple chronic bronchitis (9) Diabetes mellitus Current Visit: Yes Status: Chronic Recommend aggressive glucose monitoring and control to promote wound healing and prevent re-infection. Management per the primary team. Qualifiers: Diabetes mellitus type: type 2 Diabetes mellitus complication status: with unspecified complications Diabetes mellitus terminal block assembler insulin use: without terminal block assembler use Qualified Code(s): E11.8 - Type 2 diabetes mellitus with unspecified complications - Subjective Interval history: Patient seen and examined. No acute events noted overnight. Patient started having fevers and tachycardia overnight. WBC continues to trend up slightly this morning. States overall he doesn't feel well today. Reports chills, but denies rigors. Denies any chest pain. States his shortness of breath is a little worse this morning and he continues to have moist cough with clear sputum. States he has not been getting his nebulizers as he gets them at home. Denies any nausea or vomiting or diarrhea. States that last night he felt like he needed to have BM, but couldn't but he is passing gas. Reports abdominal pain with radiation around to the right flank. Status post drain removal yesterday. Denies changes in his appetite or urinary complaints. Denies oral thrush or new skin lesions. Infect Dis PN-Objective Data - Labs CBC & Chem 7: 08/11/17 04:50 08/10/17 03:58 Labs: Laboratory Results - last 24 hr 08/08/17 08/09/17 08/10/17 19:45 20:48 03:58 WBC RBC Hgb Hct MCV MCH MCHC RDW Plt Count MPV Immature Gran % Seg Neutrophils % Lymphocytes % Monocytes % Eosinophils % Basophils % Neutrophils # Lymphocytes # Monocytes # Eosinophils # Basophils # Sodium 141 Potassium 3.4 L Chloride 108 H Carbon Dioxide 23 BUN 12 Creatinine 0.95 Est GFR ( Amer) > 60 Est GFR (Non-Af Amer) > 60 BUN/Creatinine Ratio 13 Glucose 133 H POC Glucose 238 H 146 H Calculated Osmolality 294 Calcium 9.2 Creatine Kinase 15 L 08/10/17 08/10/17 08/10/17 11:32 16:04 20:21 WBC RBC Hgb Hct MCV MCH MCHC RDW Plt Count MPV Immature Gran % Seg Neutrophils % Lymphocytes % Monocytes % Eosinophils % Basophils % Neutrophils # Lymphocytes # Monocytes # Eosinophils # Basophils # Sodium Potassium Chloride Carbon Dioxide BUN Creatinine Est GFR ( Amer) Est GFR (Non-Af Amer) BUN/Creatinine Ratio Glucose POC Glucose 147 H 102 H 139 H Calculated Osmolality Calcium Creatine Kinase 08/11/17 08/11/17 04:50 08:02 WBC 11.6 H RBC 3.89 L Hgb 11.3 L Hct 33.8 L MCV 86.9 MCH 29.0 MCHC 33.4 RDW 15.2 H Plt Count 690 H MPV 9.6 Immature Gran % 0.4 Seg Neutrophils % 60.7 Lymphocytes % 23.2 Monocytes % 12.2 Eosinophils % 2.2 Basophils % 1.3 Neutrophils # 7.1 Lymphocytes # 2.7 Monocytes # 1.4 H Eosinophils # 0.3 Basophils # 0.2 Sodium Potassium Chloride Carbon Dioxide BUN Creatinine Est GFR ( Amer) Est GFR (Non-Af Amer) BUN/Creatinine Ratio Glucose POC Glucose 138 H Calculated Osmolality Calcium Creatine Kinase Cultures: Cultures 08/10/17 16:05 Influenza Types A,B Antigen (GENIA) - Final Nasopharyngeal 08/04/17 10:15 Anaerobic Culture - Preliminary Abdomen 08/04/17 10:15 Body Fluid Culture - Final Other-Specify in Comments Escherichia coli Vancomycin Resistant Enterococcus faecium 08/04/17 16:20 Blood Culture - Final Peripheral Venipuncture No growth. 08/04/17 16:20 Blood Culture - Final Peripheral Venipuncture No growth. 08/04/17 10:15 Gram Stain - Final Abdomen - Impressions Impressions Chest X-Ray 08/10/17 20:30 IMPRESSION: Subtle left infrahilar opacification, atelectasis versus infiltrate. Otherwise no acute cardiopulmonary disease. D/ / Nelson Park MD / Nelson Park MD Interpreting Provider: Nelson Park MD Exam - Constitutional Vitals: Temp Pulse Resp BP Pulse Ox 99.5 F 112 14 114/67 96 08/11/17 08:45 08/11/17 08:45 08/11/17 08:45 08/11/17 08:45 08/11/17 08:45 General appearance: average body habitus, cooperative, no acute distress - Head Head exam: Present: atraumatic, normal inspection, normocephalic - Eye Eye exam: Present: EOMI, normal appearance, PERRL Pupils: Present: normal accommodation - ENT ENT exam: Present: mucous membranes moist - Neck Neck exam: Present: normal inspection - Respiratory Respiratory exam: Present: CTAB. Absent: rales, respiratory distress, rhonchi, wheezes - Cardiovascular Cardiovascular exam: Present: +S1, +S2, tachycardia. Absent: irregular rhythm - GI/Abdominal GI/Abdominal exam: Present: normal bowel sounds, soft, tenderness (RLQ, right lateral abdomen). Absent: distended - Extremities Exam Extremities exam: Present: normal inspection. Absent: joint swelling, pedal edema, tenderness - Back Exam Back exam: Present: CVA tenderness (R) Additional comments: Right flank drain site with dressing C/D/I. - Neurological Exam Neurological exam: Present: alert, oriented X3, no focal deficits - Psychiatric Psychiatric exam: Present: normal affect, normal mood - Skin Skin exam: Present: dry, intact, normal color, warm Consult Discharge Plan - Plan Additional Instructions: Wound Care Instructions: Remove Dressing after 24 hours. Shower daily with antibacterial soap. May leave FARIDEH drain site open to air after 24 hours or may replace with fresh dressing. Referrals: Haris Brunner MD [Partnered Physician] - Omaira Jimenez CNP [Advanced Practice Nurse] - 08/11/17 9:20 am Artemio Briggs DO [Primary Care Provider] - Prescriptions: Ceftriaxone Na/Dextrose,Iso [Ceftriaxone 2 gm Piggyback] 2 gm IV DAILY 14 Days # 14 froz.piggy DAPTOmycin [Daptomycin] 500 mg IV DAILY 14 Days #14 vial metroNIDAZOLE [Flagyl] 500 mg PO TID 14 Days #42 tablet - Attending Attestation I examined this patient and my medical decision-making was reviewed with the Resident Physician. I agree with the documented findings, disposition and treatment plan as described except to the extent set forth below.
[2017-08-11] MEDS: Tiotropium 18 MCG inhalation IH SCH (11:42)
[2017-08-11 12:22] LABS: Adenovirus Not Detected (Not Detect); Bordetella Pertussis Not Detected (Not Detect); Chlamydophila pneumoniae Not Detected (Not Detect); Coronavirus 229E Not Detected (Not Detect); Coronavirus HKU1 Not Detected (Not Detect); Coronavirus NL63 Not Detected (Not Detect); Coronavirus OC43 Not Detected (Not Detect); Human Metapneumovirus Not Detected (Not Detect); Human Rhinovirus/Enterovirus Not Detected (Not Detect); Influenza A Subtype 2009 H1 Not Detected (Not Detect); Influenza A Untypeable Not Detected (Not Detect); Influenza B Not Detected (Not Detect); Mycoplasma pneumoniae Not Detected (Not Detect); Parainfluenza Virus 1 Not Detected (Not Detect); Parainfluenza Virus 2 Not Detected (Not Detect); Parainfluenza Virus 3 Not Detected (Not Detect); Parainfluenza Virus 4 Not Detected (Not Detect); Respiratory Syncytial Virus Not Detected (Not Detect)
[2017-08-11] MEDS: DAPTOmycin 500 MG in 0.9 % Sodium Chloride 100 ML IVPB SCH (14:24)
[2017-08-11] MEDS: Ibuprofen 400 MG TABLET PO PRN (15:03)
[2017-08-11] MEDS: 0.9 % Sodium Chloride 1,000 ML IVC SCH (15:03)
--- NOTE | 2017-08-11 17:36 | Internal Med Progress Note ---
Date of Encounter: 08/11/17 Time of Encounter: 13:45 - Assessment and plan (1) SIRS (systemic inflammatory response syndrome) Current Visit: Yes Status: Acute Assessment and plan: Presented with fever, tachycardia, leukocytosis, thought to be from recent surgery with intra-abdominal fluid collection. Has received intra-abdominal drain placement, broad-spectrum IV antibiotics. Developed fever and tachycardia, borderline hypotension now. Respiratory viral panel positive for influenza A. Check CT abdomen/pelvis to evaluate for reaccumulation of fluid. Continue IV hydration. Serum lactic acid noted to be normal. (2) PNA (pneumonia) Current Visit: Yes Status: Ruled-out Qualifiers: Pneumonia type: due to unspecified organism Laterality: right Lung location: middle lobe of lung Qualified Code(s): J18.1 - Lobar pneumonia, unspecified organism (3) Anastomotic leak of intestine Current Visit: Yes Status: Acute Assessment and plan: recent cholecystectomy, drainage of subsequent abscess, repair of cholecolonic fistula, and partial colectomy, CT abdomen/pelvis done in the emergency room showed multiloculated fluid collection containing gas adjacent to the anastomotic sutures, could represent an infectious process or an anastomotic leak. Repeat CT abdomen showed almost same sized fluid collection with no leakage of contrast into the cavity, likely an abscess; Surgery has been on board. Received CT-guided drain placement by interventional radiology on August 04, 55 mL pus was aspirated. Fluid culture grows VRE fecium, Escherichia coli. Infectious diseases has been on board, patient is currently on IV Rocephin, daptomycin, by mouth Flagyl. student services advisor on board, plan for home health services for IV antibiotic infusion. (4) COPD (chronic obstructive pulmonary disease) Current Visit: Yes Status: Chronic Assessment and plan: Not in acute exacerbation. Continue as needed bronchodilators, supplemental oxygen. Qualifiers: COPD type: chronic bronchitis Chronic bronchitis type: simple Qualified Code(s): J41.0 - Simple chronic bronchitis (5) Diabetes mellitus Current Visit: Yes Status: Chronic Assessment and plan: Blood sugars noted to be well controlled. Continue Accu-Chek blood glucose monitoring with sliding scale insulin. Diabetic diet. Qualifiers: Diabetes mellitus type: type 2 Diabetes mellitus complication status: with unspecified complications Diabetes mellitus mcfp insulin use: without mcfp use Qualified Code(s): E11.8 - Type 2 diabetes mellitus with unspecified complications (6) HTN (hypertension) Current Visit: Yes Status: Chronic Qualifiers: Hypertension type: essential hypertension Qualified Code(s): I10 - Essential (primary) hypertension (7) Hypothyroid Current Visit: Yes Status: Chronic Qualifiers: Hypothyroidism type: unspecified Qualified Code(s): E03.9 - Hypothyroidism , unspecified (8) Thrombocytosis Current Visit: Yes Status: Acute (9) Intra-abdominal collection Current Visit: Yes Status: Resolved - Subjective Interval history: Patient was admitted with intra-abdominal infection, received abdominal drain placement by interventional radiology, drain was removed yesterday and patient was ready for discharge, which was held due to fever spikes. Patient continues to have fever spikes, feels tired and sick. Continues to have right lower abdominal pain. No nausea, vomiting, diarrhea. - Constitutional Vitals: Temp Pulse Resp BP Pulse Ox 99.7 F H 114 16 89/50 96 08/11/17 16:49 08/11/17 16:49 08/11/17 16:49 08/11/17 16:49 08/11/17 16:49 General appearance: Present: A&O X 3, answers questions appropriately - Respiratory Respiratory exam: Present: CTAB. Absent: accessory muscle use, rales, rhonchi, wheezes - Cardiovascular Cardiovascular exam: Present: RRR, +S1, +S2, tachycardia. Absent: diastolic murmur, gallop, rubs, systolic murmur - GI/Abdominal GI/Abdominal exam: Present: normal bowel sounds, soft (Tenderness to deep palpation in right lower quadrant), no peritoneal signs. Absent: distended, tenderness - Extremities Exam Extremities exam: Present: full ROM, warm, radial pulses palpable and symmetrical. Absent: calf tenderness, cyanotic, pedal edema Internal Medicine: Result - Labs CBC & Chem 7: 08/11/17 04:50 08/10/17 03:58 Labs: Short CBC 08/11/17 Range/Units 04:50 WBC 11.6 H (4.3-11.1) K/mcL Hgb 11.3 L (12.9-16.9) g/dL Hct 33.8 L (37.5-50.1) % Plt Count 690 H (140-400) K/mcL Neutrophils # 7.1 (1.6-8.9) K/mcL - Impressions Impressions Chest X-Ray 08/10/17 20:30 IMPRESSION: Subtle left infrahilar opacification, atelectasis versus infiltrate. Otherwise no acute cardiopulmonary disease. D/ / Nelson Park MD / Nelson Park MD Interpreting Provider: Nelson Park MD Consult Discharge Plan - Plan Additional Instructions: Wound Care Instructions: Remove Dressing after 24 hours. Shower daily with antibacterial soap. May leave FARIDEH drain site open to air after 24 hours or may replace with fresh dressing. Referrals: Haris Brunner MD [Partnered Physician] - Omaira Jimenez CNP [Advanced Practice Nurse] - 08/11/17 9:20 am Artemio Briggs DO [Primary Care Provider] - Prescriptions: Ceftriaxone Na/Dextrose,Iso [Ceftriaxone 2 gm Piggyback] 2 gm IV DAILY 14 Days # 14 froz.piggy DAPTOmycin [Daptomycin] 500 mg IV DAILY 14 Days #14 vial metroNIDAZOLE [Flagyl] 500 mg PO TID 14 Days #42 tablet
[2017-08-11] MEDS: Fenofibrate 54 MG TABLET PO SCH (21:10)
[2017-08-11] MEDS: *HR* LORazepam 0.5 MG TABLET PO PRN (22:23)
[2017-08-12] MEDS: carBAMazepine 200 MG TABLET PO SCH ×3 (00:14→16:12)
[2017-08-12] MEDS: Ibuprofen 400 MG TABLET PO PRN (00:17)
[2017-08-12] MEDS: 0.9 % Sodium Chloride 1,000 ML IVC SCH (01:26)
[2017-08-12 04:08] LABS: Basophils # 0.1 K/mcL (0.0-0.2); Eosinophils # 0.2 K/mcL (0.0-0.6); Eosinophils % 4.6 %; Hemoglobin 10.3 g/dL (12.9-16.9); Immature Granulocytes % 0.4 % (0-4); Lymphocytes # 1.3 K/mcL (0.6-4.6); Lymphocytes % 28.3 %; Mean Corpuscular HGB Conc 34.3 g/dL (31.6-35.5); Mean Corpuscular Hemoglobin 29.8 pg (28.0-33.3); Mean Corpuscular Volume 86.7 fL (83.0-100.0); Mean Platelet Volume 9.5 fL (9.4-12.4); Monocytes # 0.8 K/mcL (0.0-1.3); Monocytes % 17.6 %; Neutrophils # 2.2 K/mcL (1.6-8.9); Platelet Count 517 K/mcL (140-400); Red Blood Count 3.46 M/mcL (4.19-5.50); Red Cell Distribution Width 15.6 % (11.5-14.5); Segmented Neutrophils % 47.1 %
[2017-08-12 04:40] LABS: BUN/Creatinine Ratio 13 (6-26); Blood Urea Nitrogen 12 mg/dL (6-20); Calcium 8.8 mg/dL (8.6-10.3); Carbon Dioxide 22 mEq/L (23-29); Chloride 109 mEq/L (98-107); Glucose 124 mg/dL (70-105); Magnesium 1.9 mg/dL (1.6-2.6); Osmolality,Calculated 287 (280-300); Potassium 3.5 mEq/L (3.5-5.1); Sodium 138 mEq/L (136-145); eGFR For African Americans > 60 (> 60); eGFR For Non-African Americans > 60 (> 60)
[2017-08-12] MEDS: traMADol 50 MG TABLET PO SCH ×3 (05:54→16:12)
[2017-08-12] MEDS: *HR* Enoxaparin 40 MG/0.4 ML SYRINGE SQ SCH (06:06)
[2017-08-12] MEDS: Fluticasone Propionate Nasal 50 MCG/SPRAY BOTTLE NS SCH (06:08)
[2017-08-12] MEDS: Tiotropium 18 MCG inhalation IH SCH (07:40)
[2017-08-12] MEDS: Vitamin B Complex/Vit C/Vit E 1 EACH TABLET PO SCH (08:34)
[2017-08-12] MEDS: Cholecalciferol (D-3) 1,000 UNIT TABLET PO SCH (08:34)
[2017-08-12] MEDS: metroNIDAZOLE 500 MG TABLET PO SCH ×2 (08:35→14:34)
[2017-08-12] MEDS: Acetaminophen 325 MG TABLET PO PRN ×2 (08:41→16:19)
[2017-08-12] MEDS: Insulin LISPRO 300 UNITS/3 ML VIAL SQ SCH ×3 (08:43→17:16)
[2017-08-12] MEDS: cefTRIAXone 2,000 MG in Water for inj. (sterile) 20 ML 20 ML IVP SCH (11:50)
--- NOTE | 2017-08-12 13:12 | Infectious Disease Progress No ---
Date of Encounter: 08/12/17 Time of Encounter: 13:10 - Assessment and Plan (1) Sepsis Current Visit: Yes Status: Acute The patient had two SIRS criteria on admission. Likely secondary to intra-abdominal abscess and inadequate source control. The patient has started to have fevers and tachycardia again despite adequate antibiotic coverage. He has started to have RLQ pain again as well. --> He tested positive for influenza A and his repeat CT scan showed re-accumulation of fluid collection in the RLQ. Blood cultures drawn 07/31/17 are negative x 2 sets. Additional blood cultures drawn 08/04/17 x 2 sets and 08/11/17 x2 sets are NGTD. Chest xray showed a subtle left perihilar opacification, atelectasis vs. infiltrate. Flu antigen negative, but PCR positive for influenza A. Qualifiers: Sepsis type: sepsis due to unspecified organism Qualified Code(s): A41.9 - Sepsis, unspecified organism (2) Intra-abdominal collection Current Visit: Yes Status: Resolved Likely secondary to anastamosis leak. Causative organism VRE (amp-resistant) and E. coli. 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 CT of the abdomen and pelvis 07/31/17 showed an abscess adjacent to the right lower colon anastamosis site. Repeat CT of the abdomen and pelvis 08/03/17 showed that the fluid collection was a little bit bigger. IR consulted 08/04/16. Status post CT-guided aspiration of the abscess with drain placement. 55ml pus aspirated. General surgery consulted and following. Clinically, the patient improved after drain was placed, but began to have fevers and tachycardia again. Repeat CT scan 08/07/17 shows interval decrease in the size of the abscess with drain in place. Drain removed 08/10/17 by the surgery team. Repeat CT scan completed 08/12/17 showed re-accumulation of the abscess. Await recommendations from the surgery team. Continue Rocephin 2 grams IV daily. Continue Daptomycin 6mg/kg IV daily. Continue Flagyl 500mg PO daily. Baseline CK level 15. Duration of treatment depends on the clinical picture. Monitor renal function and for drug toxicity and dose-adjust antibiotics. Will discuss with the VAT if the patient needs to have Powerglide switched to midline or PICC. Will need weekly CBC, BUN/Cr, and CK level. Will need weekly IV care per protocol. (3) Influenza A Current Visit: Yes Status: Acute Influenza PCR positive. Continue Tamiflu 75mg PO BID. Continue droplet precautions. Continue supportive care per the primary team. 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 CT of the abdomen and pelvis completed 07/21/17 showed findings consistent with anastamosis breakdown, but no abscess. CT of the abdomen and pelvis completed 07/31/17 showed findings consistent with abscess adjacent to the right lower colon anastamosis. Repeat CT of the abdomen and pelvis completed 08/03/17 showed that the abscess was a little larger, but did not show any leakage of contrast from the bowel into the abscess. Repeat CT scan 08/07/17 showed no evidence of leak. Repeat CT scan 08/12/17 negative for anastamosis leak. General surgery consulted and following. (5) Abdominal pain Current Visit: No Status: Acute Likely secondary to intra-abdominal abscess. Worse today. Likely secondary to recurrence of RLQ abscess. Await recommendations from the surgery team. Pain management per the primary team Qualifiers: Abdominal location: generalized Qualified Code(s): R10.84 - Generalized abdominal pain (6) Thrombocytosis Current Visit: Yes Status: Acute Likely reactive from infectious etiology. Continue to trend. (7) Status post cholecystectomy Current Visit: Yes Status: Acute Status post open cholecystectomy with FARIDEH drain placement in the subhepatic abscess 07/03/[address] Brunner. (8) Status post right hemicolectomy Current Visit: Yes Status: Acute (9) COPD (chronic obstructive pulmonary disease) Current Visit: Yes Status: Chronic Qualifiers: COPD type: chronic bronchitis Chronic bronchitis type: simple Qualified Code(s): J41.0 - Simple chronic bronchitis (10) Diabetes mellitus Current Visit: Yes Status: Chronic Recommend aggressive glucose monitoring and control to promote wound healing and prevent re-infection. Management per the primary team. Qualifiers: Diabetes mellitus type: type 2 Diabetes mellitus complication status: with unspecified complications Diabetes mellitus usp insulin use: without usp use Qualified Code(s): E11.8 - Type 2 diabetes mellitus with unspecified complications - Subjective Interval history: Patient seen and examined. No acute events noted overnight. Patient afebrile overnight and tachycardia improved. WBC normal this morning. States overall he doesn't feel well and continues to have persistent RLQ pain. Reports chills and rigors yesterday. Denies any chest pain. States his shortness of breath is a little worse this morning and he continues to have moist cough with clear sputum. States he has not been getting his nebulizers as he gets them at home. Denies any nausea or vomiting or diarrhea. Reports abdominal pain with radiation around to the right flank. Denies changes in his appetite or urinary complaints. Denies oral thrush or new skin lesions. Infect Dis PN-Objective Data - Labs CBC & Chem 7: 08/12/17 03:48 08/12/17 03:48 Labs: Laboratory Results - last 24 hr 08/11/17 08/11/17 08/11/17 14:55 17:13 20:10 WBC RBC Hgb Hct MCV MCH MCHC RDW Plt Count MPV Immature Gran % Seg Neutrophils % Lymphocytes % Monocytes % Eosinophils % Basophils % Neutrophils # Lymphocytes # Monocytes # Eosinophils # Basophils # Sodium Potassium Chloride Carbon Dioxide BUN Creatinine Est GFR ( Amer) Est GFR (Non-Af Amer) BUN/Creatinine Ratio Glucose POC Glucose 152 H 118 H Calculated Osmolality Lactic Acid 1.9 Calcium Magnesium 08/12/17 08/12/17 08/12/17 03:48 03:48 05:27 WBC 4.6 D RBC 3.46 L Hgb 10.3 L Hct 30.0 L MCV 86.7 MCH 29.8 MCHC 34.3 RDW 15.6 H Plt Count 517 H MPV 9.5 Immature Gran % 0.4 Seg Neutrophils % 47.1 Lymphocytes % 28.3 Monocytes % 17.6 Eosinophils % 4.6 Basophils % 2.0 Neutrophils # 2.2 Lymphocytes # 1.3 Monocytes # 0.8 Eosinophils # 0.2 Basophils # 0.1 Sodium 138 Potassium 3.5 Chloride 109 H Carbon Dioxide 22 L BUN 12 Creatinine 0.95 Est GFR ( Amer) > 60 Est GFR (Non-Af Amer) > 60 BUN/Creatinine Ratio 13 Glucose 124 H POC Glucose 135 H Calculated Osmolality 287 Lactic Acid Calcium 8.8 Magnesium 1.9 Cultures: Cultures 08/04/17 10:15 Body Fluid Culture - Final Other-Specify in Comments Escherichia coli Vancomycin Resistant Enterococcus faecium 08/04/17 10:15 Anaerobic Culture - Preliminary Abdomen Anaerobic Gram Negative Anup Anaerobic Gram Negative Coccobacilli 08/04/17 10:15 Gram Stain - Final Abdomen 08/11/17 01:00 Blood Culture - Preliminary Peripheral Venipuncture No growth. 08/11/17 01:00 Blood Culture - Preliminary Peripheral Venipuncture No growth. 08/10/17 16:05 Influenza Types A,B Antigen (GENIA) - Final Nasopharyngeal 08/04/17 16:20 Blood Culture - Final Peripheral Venipuncture No growth. 08/04/17 16:20 Blood Culture - Final Peripheral Venipuncture No growth. Serology 08/11/17 Range/Units 11:15 Chlamy pneumoniae PCR Not Detected (Not Detect) Adenovirus (PCR) Not Detected (Not Detect) B. pertussis DNA (PCR) Not Detected (Not Detect) B.parapertussis DNA PCR Not Detected (Not Detect) Coronavirus OC43 (PCR) Not Detected (Not Detect) Coronavirus HKU1 (PCR) Not Detected (Not Detect) Coronavirus 229E (PCR) Not Detected (Not Detect) Coronavirus NL63 (PCR) Not Detected (Not Detect) Human Metapneumovir PCR Not Detected (Not Detect) Influenza A (H1) PCR Not Detected (Not Detect) Influ A (H1N1/09) PCR Not Detected (Not Detect) Influenza A (H3) PCR DETECTED A (Not Detect) Influenza A Untype (PCR) Not Detected (Not Detect) Influenza Type B (PCR) Not Detected (Not Detect) M.pneumoniae DNA (PCR) Not Detected (Not Detect) Parainfluenza 1 (PCR) Not Detected (Not Detect) Parainfluenza 2 (PCR) Not Detected (Not Detect) Parainfluenza 3 (PCR) Not Detected (Not Detect) Parainfluenza 4 (PCR) Not Detected (Not Detect) RSV (PCR) Not Detected (Not Detect) Entero/Rhino (PCR) Not Detected (Not Detect) - Impressions Impressions Abdomen/Pelvis CT 08/12/17 09:45 IMPRESSION: 1. No significant change in a 3.9 cm x 2.5 cm x 1.3 cm abscess along the right lateral margin of the small bowel mesentery adjacent to the ileocolonic anastomosis following removal of the percutaneous drainage catheter. No definite findings of fistula formation. 2. Questionable areas of subtle hypoenhancement in each kidney potentially due to renal dysfunction or pyelonephritis. 3. Trace free fluid in the region of the abscess, likely reactive. D/ / Juan Francisco Jha MD / Juan Francisco Jha MD Interpreting Provider: Juan Francisco Jha MD Exam - Constitutional Vitals: Temp Pulse Resp BP Pulse Ox 98.9 F 106 16 111/78 96 08/12/17 11:03 08/12/17 11:03 08/12/17 11:03 08/12/17 11:03 08/12/17 11:03 General appearance: average body habitus, cooperative, no acute distress - Head Head exam: Present: atraumatic, normal inspection, normocephalic - Eye Eye exam: Present: EOMI, normal appearance, PERRL Pupils: Present: normal accommodation - ENT ENT exam: Present: mucous membranes moist - Neck Neck exam: Present: normal inspection - Respiratory Respiratory exam: Present: CTAB. Absent: rales, respiratory distress, rhonchi, wheezes - Cardiovascular Cardiovascular exam: Present: RRR, +S1, +S2 - GI/Abdominal GI/Abdominal exam: Present: normal bowel sounds, soft, tenderness (RLQ, Right lateral abdomen). Absent: distended - Extremities Exam Extremities exam: Present: normal inspection. Absent: joint swelling, pedal edema, tenderness - Back Exam Back exam: Present: CVA tenderness (R) - Neurological Exam Neurological exam: Present: alert, oriented X3, no focal deficits - Psychiatric Psychiatric exam: Present: normal affect, normal mood - Skin Skin exam: Present: dry, intact, normal color, warm Consult Discharge Plan - Plan Additional Instructions: Wound Care Instructions: Remove Dressing after 24 hours. Shower daily with antibacterial soap. May leave FARIDEH drain site open to air after 24 hours or may replace with fresh dressing. Referrals: Haris Brunner MD [Partnered Physician] - 08/25/17 10:10 am Omaira Jimenez, [facility] ASSIST REGISTERED NURSE [Advanced Practice Nurse] - Artemio Briggs DO [Primary Care Provider] - Prescriptions: Ceftriaxone Na/Dextrose,Iso [Ceftriaxone 2 gm Piggyback] 2 gm IV DAILY 14 Days # 14 froz.piggy DAPTOmycin [Daptomycin] 500 mg IV DAILY 14 Days #14 vial metroNIDAZOLE [Flagyl] 500 mg PO TID 14 Days #42 tablet
[2017-08-12] MEDS: DAPTOmycin 500 MG in 0.9 % Sodium Chloride 100 ML IVPB SCH (14:34)
--- NOTE | 2017-08-12 14:53 | Event Note ---
Date of Encounter: 08/12/17 Time of Encounter: 14:00 ID asked for recommendations based on continued fevers and CT results. Patient did test positive for Influenza A on 08/11/17. Discussed CT findings and lab values with Dr. Brunner. Recommend continuing with antibiotic therapy and supportive measures at this time. No evidence of anastomotic leak or indication for surgical intervention at this time.
[2017-08-12 15:35] VITALS: BP 110/68
--- NOTE | 2017-08-12 17:17 | Internal Med Progress Note ---
Date of Encounter: 08/12/17 Time of Encounter: 12:00 - Assessment and plan (1) SIRS (systemic inflammatory response syndrome) Current Visit: Yes Status: Acute Assessment and plan: Presented with fever, tachycardia, leukocytosis, thought to be from recent surgery with intra-abdominal fluid collection. Has received intra-abdominal drain placement, broad-spectrum IV antibiotics. Has fever spikes at this time, thought to be due to influenza A. Improved blood pressure and heart rate. Serum lactic acid within normal limits. Respiratory viral panel positive for influenza A. Preliminary blood cultures from yesterday remain negative. Repeat CT abdomen/pelvis showed approximately 4 x 2.5 x 1.3 cm abscess along the right lateral margin of the small bowel mesentery adjacent to the ileocolonic anastomosis; case discussed with surgery team, patient has been explained extensively and showed his images by surgeon and no further intervention is indicated at this time. He stable and agreeable for discharge. (2) PNA (pneumonia) Current Visit: Yes Status: Ruled-out Qualifiers: Pneumonia type: due to unspecified organism Laterality: right Lung location: middle lobe of lung Qualified Code(s): J18.1 - Lobar pneumonia, unspecified organism (3) Anastomotic leak of intestine Current Visit: Yes Status: Ruled-out Assessment and plan: recent cholecystectomy, drainage of subsequent abscess, repair of cholecolonic fistula, and partial colectomy, CT abdomen/pelvis done in the emergency room showed multiloculated fluid collection containing gas adjacent to the anastomotic sutures, could represent an infectious process or an anastomotic leak. Repeat CT abdomen showed almost same sized fluid collection with no leakage of contrast into the cavity, likely an abscess; Surgery has been on board. Received CT-guided drain placement by interventional radiology on August 04, 55 mL pus was aspirated. Fluid culture grows VRE fecium, Escherichia coli. Infectious diseases has been on board, patient is currently on IV Rocephin, daptomycin, by mouth Flagyl. administrative services coordinator on board, plan for home health services for IV antibiotic infusion. (4) COPD (chronic obstructive pulmonary disease) Current Visit: Yes Status: Chronic Qualifiers: COPD type: chronic bronchitis Chronic bronchitis type: simple Qualified Code(s): J41.0 - Simple chronic bronchitis (5) Diabetes mellitus Current Visit: Yes Status: Chronic Qualifiers: Diabetes mellitus type: type 2 Diabetes mellitus complication status: with unspecified complications Diabetes mellitus intermediate insulin use: without laborer marine terminal use Qualified Code(s): E11.8 - Type 2 diabetes mellitus with unspecified complications (6) HTN (hypertension) Current Visit: Yes Status: Chronic Qualifiers: Hypertension type: essential hypertension Qualified Code(s): I10 - Essential (primary) hypertension (7) Hypothyroid Current Visit: Yes Status: Chronic Qualifiers: Hypothyroidism type: unspecified Qualified Code(s): E03.9 - Hypothyroidism , unspecified (8) Thrombocytosis Current Visit: Yes Status: Acute (9) Intra-abdominal collection Current Visit: Yes Status: Resolved - Subjective Interval history: Continues to have low-grade fevers and persistent right lower abdominal pain. Otherwise tolerates oral diet, no vomiting or diarrhea. Noted to have independent ambulation. - Constitutional Vitals: Temp Pulse Resp BP Pulse Ox 100.1 F H 106 16 110/68 98 08/12/17 16:20 08/12/17 15:34 08/12/17 15:34 08/12/17 15:34 08/12/17 15:34 General appearance: Present: A&O X 3, answers questions appropriately - Respiratory Respiratory exam: Present: CTAB. Absent: accessory muscle use, rales, rhonchi, wheezes - Cardiovascular Cardiovascular exam: Present: RRR, +S1, +S2. Absent: diastolic murmur, gallop, rubs, systolic murmur Internal Medicine: Result - Labs CBC & Chem 7: 08/12/17 03:48 08/12/17 03:48 Labs: Short CBC 08/12/17 Range/Units 03:48 WBC 4.6 D (4.3-11.1) K/mcL Hgb 10.3 L (12.9-16.9) g/dL Hct 30.0 L (37.5-50.1) % Plt Count 517 H (140-400) K/mcL Neutrophils # 2.2 (1.6-8.9) K/mcL BMP 08/12/17 03:48 Sodium 138 Potassium 3.5 Chloride 109 H Carbon Dioxide 22 L BUN 12 Creatinine 0.95 Glucose 124 H Calcium 8.8 - Impressions Impressions Abdomen/Pelvis CT 08/12/17 09:45 IMPRESSION: 1. No significant change in a 3.9 cm x 2.5 cm x 1.3 cm abscess along the right lateral margin of the small bowel mesentery adjacent to the ileocolonic anastomosis following removal of the percutaneous drainage catheter. No definite findings of fistula formation. 2. Questionable areas of subtle hypoenhancement in each kidney potentially due to renal dysfunction or pyelonephritis. 3. Trace free fluid in the region of the abscess, likely reactive. D/ / Juan Francisco Jha MD / Juan Francisco Jha MD Interpreting Provider: Juan Francisco Jha MD Consult Discharge Plan - Plan Additional Instructions: Wound Care Instructions: Remove Dressing after 24 hours. Shower daily with antibacterial soap. May leave FARIDEH drain site open to air after 24 hours or may replace with fresh dressing. Referrals: Haris Brunner MD [Partnered Physician] - 08/25/17 10:10 am Omaira Jimenez, [facility] [Advanced Practice Nurse] - Artemio Briggs DO [Primary Care Provider] - Prescriptions: Ceftriaxone Na/Dextrose,Iso [Ceftriaxone 2 gm Piggyback] 2 gm IV DAILY 14 Days # 14 froz.piggy DAPTOmycin [Daptomycin] 500 mg IV DAILY 14 Days #14 vial Lactobacillus Acidophilus [Acidophilus] 1 each PO BID #60 capsule metroNIDAZOLE [Flagyl] 500 mg PO TID 14 Days #42 tablet Oseltamivir [Tamiflu] 75 mg PO BID #7 capsule
[2017-08-12] MEDS ORDERED: Lactobacillus 1 EACH CAP.SPRINK PO SCH (21:00)
== END 2017-08-12 18:25 | disposition home health service (06) | DRG 862 ==
LOC: EMEROO 17:44 → 3ANU 17:44 → SUATTDRO 08-01 02:16
PROVIDERS: ADMIT Family Medicine; ATTEND Internal Medicine
PROC: IRDRAIN (2017-08-04 12:00)